=== PATIENT | female | born 1940 | race Caucasian/White ===

== ENCOUNTER 2022-11-14 01:09 | Inpatient (IN) ==
[~2022-11-14 01:09] MED LIST: Patient's ALLERGY Info needs ENTERED SCH
[2022-11-14] MEDS ORDERED: fentaNYL citrate PF 100 MCG/2 ML VIAL IV STA ×2 (01:29→02:55)
--- NOTE | 2022-11-14 01:41 | Emergency Department Note ---
History of Present Illness General Chief complaint: Hip Pain Stated complaint: fall Time Seen by Provider: 11/14/22 01:20 History of Present Illness Maximum Pain Intensity: 8 82-year-old female presents via EMS reportedly had a slip and fall as her sock caught a metal runner man the floor and she fell landing on her left hip. Patient did not hit her head did not complain of any neck pain. There is no loss of consciousness. Patient denies being on blood thinners. Patient complains of left hip pain was having some difficulty ambulating after the event. Patient states the pain is moderate and increases with movement of the leg decreases with rest. There are no other mitigating or alleviating factors Home Medications Medication Instructions Recorded Confirmed Type atenolol 50 mg tablet 50 mg PO QPM 11/14/22 11/14/22 History hydrochlorothiazide 25 mg tablet 25 mg PO DAILY 11/14/22 11/14/22 History levothyroxine 112 mcg tablet 112 mcg PO DAILYBB 11/14/22 11/14/22 History ramipril 10 mg capsule 10 mg PO DAILY 11/14/22 11/14/22 History Past Med/Surg History Social History Smoking Status: Never smoker Feels Safe at Home: Yes Immunizations: Past medical history reviewed with the patient at bedside she states that she has a history of sciatica Review of Systems A total of 10 systems reviewed and were otherwise negative Musculoskeletal: + joint pain Physical Exam Vital Signs Vital Signs - 24 hr 11/14/22 01:18 11/14/22 01:18 11/14/22 02:37 Temperature 36.7 C Temperature Source Oral Pulse Rate 71 Pulse Rate [Finger] 70 Respiratory Rate 18 16 Respiratory Effort / Characteristics Non-Labored Respiratory Depth Normal Normal Blood Pressure 166/106 H Blood Pressure [Right Arm] 148/100 H Blood Pressure Mean 126 Blood Pressure Mean [Right Arm] 116 Pulse Oximetry 91 97 Oxygen Delivery Method Room Air Room Air Nasal Cannula Oxygen Flow Rate 2 Sepsis Recent Fever Within 48 Hours No Sepsis New/Unexplained Change in Mental Status No Sepsis Action Taken by Nursing No Action Required 11/14/22 03:00 11/14/22 01:36 Temperature Temperature Source Pulse Rate 62 Pulse Rate [Finger] 53 L Respiratory Rate 15 Respiratory Effort / Characteristics Respiratory Depth Blood Pressure Blood Pressure [Right Arm] 137/95 Blood Pressure Mean Blood Pressure Mean [Right Arm] 109 Pulse Oximetry 95 Oxygen Delivery Method Nasal Cannula Oxygen Flow Rate Sepsis Recent Fever Within 48 Hours Sepsis New/Unexplained Change in Mental Status Sepsis Action Taken by Nursing GENERAL: Patient is awake alert in no acute distress patient is resting comfortably and showing no signs of anxiety EYES: The conjunctivae are clear. The pupils are round and reactive. EARS, NOSE, MOUTH AND THROAT: The nose is without any evidence of any deformity. Mucous membranes are moist. Tongue is midline. NECK: The neck is nontender and supple. RESPIRATORY: Normal respiratory effort is noted there is no evidence of wheezing rhonchi or rales CARDIOVASCULAR: Regular rate and rhythm noted there no murmurs rubs or gallops normal S1 normal S2. GASTROINTESTINAL: The abdomen is soft. Abdomen is nontender. PELVIS: The Pelvis is stable. Patient has abrasions to the lateral aspect of the left hip and tenderness with the left lower extremity being shortened and rotated the patient is neurovascularly intact distally BACK: No midline tenderness or or step-off noted range of motion in flexion extension as well as rotation no signs of muscle spasm noted MUSCULOSKELETAL/EXTREMITIES: Left lower extremity is shortened and rotated with hip tenderness on palpation laterally SKIN: There is no obvious evidence of any rash. There are no petechiae, pallor or cyanosis noted. NEUROLOGIC: Patient is awake alert and oriented x3 strength is symmetric; GCS of 15 Course Reevaluation(s) Reevaluation #1: Patient was started on IV fentanyl, the case was discussed with the hospitalist for admission Time: 02:51 Consultations Consultation #1: Case was discussed with the [facility] hospitalist for admission Time: 02:51 Administered Medications Discontinued Medications Fentanyl Citrate (Fentanyl Citrate Pf 100 Mcg/2 Ml Vial) 50 mcg IV NOW STA Stop: 11/14/22 01:30 Last Admin: 11/14/22 01:34 Dose: 50 mcg Documented By: VIJAY Fentanyl Citrate (Fentanyl Citrate Pf 100 Mcg/2 Ml Vial) 50 mcg IV NOW STA Stop: 11/14/22 02:56 Last Admin: 11/14/22 03:01 Dose: 50 mcg Documented By: VIJAY Ondansetron HCl (Ondansetron Inj 2 Mg/Ml 2 Ml Vial) 4 mg IV NOW STA Stop: 11/14/22 03:46 Last Admin: 11/14/22 03:55 Dose: 4 mg Documented By: VIJAY Ondansetron HCl (Ondansetron Inj 2 Mg/Ml 2 Ml Vial) Confirm Administered Dose 4 mg .ROUTE .STK-MED ONE Stop: 11/14/22 03:52 Last Admin: 11/14/22 03:56 Dose: Not Given Documented By: VIJAY Medical Decision Making Medical Records Attestation: I reviewed the patient's medical records. Home Medications Current Medication List: was personally reviewed by me Laboratory Data Attestation: I reviewed the patient's lab results. Leukocytosis 11/14/22 01:30 11/14/22 01:30 Lab Results 11/14/22 11/14/22 11/14/22 Range/Units 01:30 01:30 01:30 WBC 15.42 H (4.8-10.8) K/ul RBC 4.90 (4.20-5.40) M/uL Hgb 14.5 (12.0-16.0) g/dl Hct 43.3 (37.0-47.0) % MCV 88.4 (80.0-100.0) fL MCH 29.6 (25.0-34.0) pg MCHC 33.5 (32.0-36.0) g/dL RDW Std Deviation 45.3 (36.4-46.3) fL RDW Coeff of Adam 14.1 (11.5-14.5) % Plt Count 204 (130-400) K/uL MPV 9.7 (9.4-12.4) fL Immature Gran % (Auto) 0.8 % Neut % (Auto) 87.7 % Lymph % (Auto) 4.3 % Glenn % (Auto) 6.5 % Eos % (Auto) 0.4 % Baso % (Auto) 0.3 % Neut # (Auto) 13.51 H (1.40-6.50) K/uL Lymph # (Auto) 0.67 L (1.2-3.4) K/uL Glenn # (Auto) 1.00 H (0.11-0.59) K/uL Eos # (Auto) 0.06 (0-0.50) K/uL Baso # (Auto) 0.05 (0-0.2) K/uL Immature Gran # (Auto) 0.13 (0.01-0.20) K/uL PT 11.5 (9.0-12.0) Seconds INR 1.1 (0.9-1.1) APTT 27.6 (21.0-31.0) Seconds PTT Ratio 1.0 Sodium 138 (136-145) mmol/L Potassium 4.3 (3.5-5.1) mmol/L Chloride 107 (98-107) mmol/L Carbon Dioxide 21 (21-32) mmol/L Anion Gap 10 (3-11) BUN 31 H (6-23) mg/dl Creatinine 1.57 H (0.6-1.2) mg/dl Est Cr Clr Drug Dosing 24.4 ml/min Est GFR ( Amer) 35.0 ml/min Est GFR (Non-Af Amer) 30.2 ml/min BUN/Creatinine Ratio 19.7 (10-20) Glucose 131 H (70-99(Fasting)) mg/dl Calcium 9.7 (8.6-10.3) mg/dl Total Bilirubin 1.2 H (0.2-1.0) mg/dl AST 28 (13-39) U/L ALT 17 (7-52) U/L Alkaline Phosphatase 108 H (34-104) U/L Total Protein 6.9 (6.0-8.3) gm/dl Albumin 4.0 (3.4-5.0) gm/dl Globulin 2.9 (2.5-4.0) gm/dl Albumin/Globulin Ratio 1.4 (0.9-2) Urine Color Urine Appearance (Clear) Urine pH (4.5-7.5) Ur Specific Lincoln (1.000-1.030) Urine Protein (Negative) Urine Glucose (UA) (Negative) Urine Ketones (Negative) Urine Blood (Negative) Urine Nitrite (Negative) Urine Bilirubin (Negative) Urine Urobilinogen (Negative) Ur Leukocyte Esterase (Negative) Urine WBC (Auto) (0-5) /hpf Urine RBC (Auto) (0-4) /hpf U Hyaline Cast (Auto) (0-5) /lpf U Epithel Cells (Auto) (0-5) /lpf Urine Bacteria (Auto) (Negative) SARS-CoV-2, RNA, NAAT (NEGATIVE) 11/14/22 11/14/22 Range/Units 02:35 02:52 WBC (4.8-10.8) K/ul RBC (4.20-5.40) M/uL Hgb (12.0-16.0) g/dl Hct (37.0-47.0) % MCV (80.0-100.0) fL MCH (25.0-34.0) pg MCHC (32.0-36.0) g/dL RDW Std Deviation (36.4-46.3) fL RDW Coeff of Adam (11.5-14.5) % Plt Count (130-400) K/uL MPV (9.4-12.4) fL Immature Gran % (Auto) % Neut % (Auto) % Lymph % (Auto) % Glenn % (Auto) % Eos % (Auto) % Baso % (Auto) % Neut # (Auto) (1.40-6.50) K/uL Lymph # (Auto) (1.2-3.4) K/uL Glenn # (Auto) (0.11-0.59) K/uL Eos # (Auto) (0-0.50) K/uL Baso # (Auto) (0-0.2) K/uL Immature Gran # (Auto) (0.01-0.20) K/uL PT (9.0-12.0) Seconds INR (0.9-1.1) APTT (21.0-31.0) Seconds PTT Ratio Sodium (136-145) mmol/L Potassium (3.5-5.1) mmol/L Chloride (98-107) mmol/L Carbon Dioxide (21-32) mmol/L Anion Gap (3-11) BUN (6-23) mg/dl Creatinine (0.6-1.2) mg/dl Est Cr Clr Drug Dosing ml/min Est GFR ( Amer) ml/min Est GFR (Non-Af Amer) ml/min BUN/Creatinine Ratio (10-20) Glucose (70-99(Fasting)) mg/dl Calcium (8.6-10.3) mg/dl Total Bilirubin (0.2-1.0) mg/dl AST (13-39) U/L ALT (7-52) U/L Alkaline Phosphatase (34-104) U/L Total Protein (6.0-8.3) gm/dl Albumin (3.4-5.0) gm/dl Globulin (2.5-4.0) gm/dl Albumin/Globulin Ratio (0.9-2) Urine Color Dark Yellow Urine Appearance Turbid A (Clear) Urine pH 5.0 (4.5-7.5) Ur Specific Lincoln 1.016 (1.000-1.030) Urine Protein 2+ H (Negative) Urine Glucose (UA) Negative (Negative) Urine Ketones Negative (Negative) Urine Blood 3+ H (Negative) Urine Nitrite Negative (Negative) Urine Bilirubin Negative (Negative) Urine Urobilinogen Negative (Negative) Ur Leukocyte Esterase 3+ H (Negative) Urine WBC (Auto) >30 H (0-5) /hpf Urine RBC (Auto) 10-30 H (0-4) /hpf U Hyaline Cast (Auto) 1-5 (0-5) /lpf U Epithel Cells (Auto) 10-20 H (0-5) /lpf Urine Bacteria (Auto) 1+ H (Negative) SARS-CoV-2, RNA, NAAT NEGATIVE (NEGATIVE) Imaging Data Attestation: I personally reviewed and interpreted this imaging study as follows: My Impression: Chest x-ray negative for infiltrate, hip x-ray interpreted by me as left sided subcapital femoral neck fracture ECG Data Attestation: I personally reviewed and interpreted this ECG as follows: Additional Comments: EKG interpreted by me normal sinus rhythm rate of [address]-T change right axis deviation no obvious ST segment elevation or depression Telemetry was ordered by me interpreted as sinus rhythm rate of 69 MDM Narrative Medical decision making differential diagnosis includes sprain strain contusion fracture or dislocation of the left hip. Plan is to check labs, x-ray, give IV pain medicine History was provided to me by EMS and the patient's family at bedside Patient was found to have a fracture of the left subcapital femoral neck and will be admitted Impression & Plan Closed subcapital fracture of left femur Discharge Plan Visit Data Chief Complaint: Hip Pain Stated Complaint: fall ED Provider: Jorge Head Discharge Problem: Closed subcapital fracture of left femur Patient Disposition: Admitted As Inpatient Forms Stand Alone Forms: My [facility] Prescriptions Prescriptions: No Action hydrochlorothiazide 25 mg tablet 25 mg PO DAILY atenolol 50 mg tablet 50 mg PO QPM ramipril 10 mg capsule 10 mg PO DAILY levothyroxine 112 mcg tablet 112 mcg PO DAILYBB Referrals Referrals: Timo Greenwood [Non-Staff] -
[2022-11-14 01:56] LABS: Basophils # (auto) 0.05 K/uL (0-0.2); Basophils % (auto) 0.3 %; Eosinophils # (auto) 0.06 K/uL (0-0.50); Eosinophils % (auto) 0.4 %; Hematocrit (blood only) 43.3 % (37.0-47.0); Hemoglobin 14.5 g/dl (12.0-16.0); Immature Granulocytes # (auto) 0.13 K/uL (0.01-0.20); Immature Granulocytes % (auto) 0.8 %; Lymphocytes # (auto) 0.67 K/uL (1.2-3.4); Lymphocytes % (auto) 4.3 %; Mean Corpuscular Hemoglobin 29.6 pg (25.0-34.0); Mean Corpuscular Hgb Conc 33.5 g/dL (32.0-36.0); Mean Corpuscular Volume 88.4 fL (80.0-100.0); Mean Platelet Volume 9.7 fL (9.4-12.4); Monocytes % (auto) 6.5 %; Neutrophils # (auto) 13.51 K/uL (1.40-6.50); Neutrophils % (auto) 87.7 %; Platelet Count 204 K/uL (130-400); RDW Coefficient of Variation 14.1 % (11.5-14.5); RDW Standard Deviation 45.3 fL (36.4-46.3); White Blood Count 15.42 K/ul (4.8-10.8)
[2022-11-14 02:15] LABS: Albumin Globulin Ratio 1.4 (0.9-2); BUN Creatinine Ratio 19.7 (10-20); Bilirubin,Total 1.2 mg/dl (0.2-1.0); Calcium 9.7 mg/dl (8.6-10.3); Creatinine Clr Calc Pharmacy 24.4 ml/min; Est GFR (Non-African American) 30.2 ml/min; Globulin 2.9 gm/dl (2.5-4.0); Potassium 4.3 mmol/L (3.5-5.1); Total Protein 6.9 gm/dl (6.0-8.3)
[2022-11-14 02:24] LABS: INR 1.1 (0.9-1.1); Partial Thromboplastin Time 27.6 Seconds (21.0-31.0); Prothrombin Time 11.5 Seconds (9.0-12.0)
[2022-11-14 02:51] LABS: Appearance Urine Turbid (Clear); Bacteria Urine Automated 1+ (Negative); Bilirubin Urine Negative (Negative); Blood Urine 3+ (Negative); Color Urine Dark Yellow; Glucose Urine UA Negative (Negative); Ketones Urine Negative (Negative); Leukocyte Esterase Urine 3+ (Negative); Nitrite Urine Negative (Negative); Protein Urine 2+ (Negative); Specific Gravity Urine 1.016 (1.000-1.030); Urobilinogen Urine Negative (Negative); WBC Urine Automated >30 /hpf (0-5)
[2022-11-14] MEDS ORDERED: ONDANSETRON INJ 2 MG/ML 2 ML VIAL IV STA (03:45)
[2022-11-14] MEDS ORDERED: ONDANSETRON INJ 2 MG/ML 2 ML VIAL ONE (03:51)
[2022-11-14] MEDS: cefTRIAXone SODIUM 2,000 MG in DEXTROSE 5% 50 ML IV SCH (05:15)
[2022-11-14] MEDS ORDERED: POLYETHYLENE (MIRALAX) 17 GM PACK PO PRN (06:56)
[2022-11-14] MEDS ORDERED: ONDANSETRON INJ 2 MG/ML 2 ML VIAL IV PRN (06:56)
[2022-11-14] MEDS ORDERED: SODIUM CHLORIDE 0.9% 1000ML 1,000 ML IV SCH (06:56)
[2022-11-14] MEDS ORDERED: MoRPHine SULFATE 4 MG/ML 1 ML CARP\\VIAL IV PRN ×2 (06:56→13:55)
[2022-11-14 07:42] LABS: Hematocrit (blood only) 40.8 % (37.0-47.0); Hemoglobin 13.6 g/dl (12.0-16.0); Mean Corpuscular Hemoglobin 29.5 pg (25.0-34.0); Mean Corpuscular Hgb Conc 33.3 g/dL (32.0-36.0); Mean Corpuscular Volume 88.5 fL (80.0-100.0); Mean Platelet Volume 9.5 fL (9.4-12.4); Platelet Count 204 K/uL (130-400); RDW Coefficient of Variation 14.2 % (11.5-14.5); RDW Standard Deviation 45.4 fL (36.4-46.3); Red Blood Count 4.61 M/uL (4.20-5.40); White Blood Count 13.31 K/ul (4.8-10.8)
[2022-11-14] MEDS: LEVOTHYROXINE SODIUM 112 MCG TABLET PO SCH (07:51)
[2022-11-14 07:58] LABS: BUN Creatinine Ratio 19.2 (10-20); Calcium 9.1 mg/dl (8.6-10.3); Creatinine Clr Calc Pharmacy 25.4 ml/min; Est GFR (African American) 36.7 ml/min; Est GFR (Non-African American) 31.6 ml/min; Magnesium 1.7 mg/dl (1.7-2.4); Potassium 4.3 mmol/L (3.5-5.1)
--- NOTE | 2022-11-14 07:59 | XRay Report ---
XR hip LT min 2V CLINICAL HISTORY: fall / inj TECHNIQUE: 2 views of the right hip and single frontal view of the pelvis were obtained. Comparison: None available at the time of this dictation. FINDINGS: There is a subcapital/transcervical fracture of the left femoral neck. There is lateral displacement and mild overriding of fragments. Joint spaces are well-preserved. Soft tissue swelling is seen. IMPRESSION: Moderately displaced left femoral neck fracture is seen with associated soft tissue swelling. ACT 112: Negative or not required by law. Electronically signed by: Zhen Sotelo M.D. 11/14/2022 7:57 AM
[2022-11-14 08:23] LABS: Basophils # (auto) 0.04 K/uL (0-0.2); Basophils % (auto) 0.3 %; Eosinophils # (auto) 0.02 K/uL (0-0.50); Eosinophils % (auto) 0.2 %; Immature Granulocytes # (auto) 0.12 K/uL (0.01-0.20); Immature Granulocytes % (auto) 0.9 %; Lymphocytes # (auto) 0.47 K/uL (1.2-3.4); Lymphocytes % (auto) 3.5 %; Monocytes # (auto) 0.66 K/uL (0.11-0.59); Neutrophils % (auto) 90.1 %
--- NOTE | 2022-11-14 08:42 | Communication Note ---
Date of Service: November 14, 2022 Patient has no cardiac history, No pulmonary history. Says could not ambulate for long distance because of hip problems and sciatica. Ambulates with cane at home.labs ok, ekg and cxr ok. Hemodynamically stable. Should be at acceptable risk to proceed with surgery.
[2022-11-14] MEDS ORDERED: hydrALAZINE HCL 20 MG/ML VIAL IV PRN (08:45)
[2022-11-14] MEDS ORDERED: ENALAPRIL MALEATE 10 MG TAB PO SCH (09:00)
--- NOTE | 2022-11-14 09:04 | XRay Report ---
XR chest 1V portable HISTORY: 82 years-old Female protocol preoperative exam. No acute chest complaints. Acute fracture o f the left hip COMPARISON: None TECHNIQUE: AP view of the chest FINDINGS: Cardiac silhouette is enlarged. Atherosclerosis of aorta. Large hiatal hernia. No pneumothorax, large pleural effusion or overt pulmonary edema. Hyperinflation with blunting of the costophrenic angles. Degenerative changes of the shoulders and spine with loose bodies of the glenohumeral joint. IMPRESSION: 1. Cardiomegaly without acute process. 2. Hiatal hernia. ACT 112: Negative or not required by law. The above report was generated using voice recognition software. It may contain grammatical, syntax o r spelling errors. Electronically signed by: José Miguel Mcgovern M.D. 11/14/2022 8:38 AM
--- NOTE | 2022-11-14 09:18 | History and Physical Report ---
DATE OF ADMISSION: 11/14/2022. CHIEF COMPLAINT: Status post fall and left hip fracture. HISTORY OF PRESENT ILLNESS: This is an 82-year-old female with past medical history significant for hypertension, hypothyroidism, comes because of mechanical fall at home. She tripped on the carpet and fell on the left side. She was able to get up and sit in the chair, but had a lot of pain, was brought in here and found to have a left hip fracture, hemodynamically stable. Denies any chest pain, no shortness of breath, no cough, no fever, no headache, no blurred visions, no earache, no runny nose, no sore throat, no nausea, no abdominal pain. Normal bowel and bladder movements. She says she ambulates with a cane. She lives with her sister. She says because of pain in her hips and sciatica, she could not ambulate for long distances. Denies any heart disease, lung disease or kidney disease. ALLERGIES: No known drug allergies. PAST MEDICAL HISTORY: As mentioned above. PAST SURGICAL HISTORY: Hysterectomy and cholecystectomy. MEDICATIONS: The patient is on atenolol 50 mg p.o. daily, hydrochlorothiazide 25 mg p.o. daily, levothyroxine 112 mcg p.o. daily, ramipril 10 mg p.o. daily. FAMILY HISTORY: Noncontributory. SOCIAL HISTORY: Denies smoking, denies alcohol use. Living with her sister. REVIEW OF SYSTEMS: As per HPI. Rest of review of systems is negative. PHYSICAL EXAMINATION: GENERAL: The patient is of moderate build, not in acute distress. VITAL SIGNS: Temperature 36.7, pulse 53, respiratory rate 16, blood pressure 128/92, oxygen 98% on room air. HEENT: Pupils equal, round and reactive to light. Oral mucosa dry. NECK: No JVD or neck masses. CARDIOVASCULAR: S1 and S2 heard. Regular rate and rhythm. No murmur, no gallop. RESPIRATORY SYSTEM: Normal AP diameter. No accessory muscle use. No wheezing or crackles. ABDOMEN: Soft, bowel sounds present, nontender, no distention. CENTRAL NERVOUS SYSTEM: Alert and oriented. Speech is clear. No facial droop. Obeys simple commands. Moves extremities. EXTREMITIES: Left lower extremity shortened and externally rotated. No erythema seen. LABORATORY DATA: WBC 13.3, hemoglobin 13.6, hematocrit 40.8, platelets 204. PT 11.5, INR 1.1, APTT 27.6. Sodium 138, potassium 4.3, chloride 107, bicarb 25, BUN 29, creatinine 1.5, serum glucose 120, calcium 9.1, magnesium 1.7, total bilirubin 1.2, AST 28, ALT 17, alkaline phosphatase 108. Urinalysis, +3 leukocyte esterase, +1 bacteria. SARS-CoV-2 rapid test negative. IMAGING: Chest x-ray: No acute findings. Hip x-ray: Moderately displaced left femoral fracture is seen with associated soft tissue swelling. ELECTROCARDIOGRAM: Normal sinus rhythm, rate of 69, possible left atrial enlargement, nonspecific ST abnormalities. ASSESSMENT AND PLAN: This is an 82-year-old female who presents with mechanical fall and left hip fracture. 1. Status post mechanical fall, left hip fracture. The patient's laboratories are okay. Chest x-ray and EKG are okay. No cardiac history. Not able to ambulate long distance because of sciatica and hip pain, ambulates with a cane. The patient is currently hemodynamically stable. The patient should be at acceptable risk to proceed with surgery. We will keep her n.p.o., IV fluids, IV pain medications p.r.n., IV antiemetics p.r.n. Consult orthopedics. Monitor in the medical floor. Gentle fluids. 2. History of hypertension. Continue atenolol. Hold hydrochlorothiazide and ramipril until the procedure is done. We will place her on IV hydralazine p.r.n. Monitor the blood pressure. 3. Hypothyroidism. Continue Synthroid. 4. Acute kidney injury versus chronic kidney disease. Presents with a creatinine of 1.5. Avoid nephrotoxic agents. We will follow the repeat laboratories. 5. Urinary tract infection. Starting on Rocephin. We will follow the cultures. 6. Deep venous thrombosis prophylaxis. Could not place sequential compression devices because of the hip fracture. Could not place her on anticoagulation because of plan for surgery. Further anticoagulation as per orthopedics. Job ID: [id number] [facility]
--- NOTE | 2022-11-14 10:53 | Electrocardiogram Report ---
Test Reason : Blood Pressure : / mmHG Vent. Rate : 069 BPM Atrial Rate : 069 BPM P-R Int : 180 ms QRS Dur : 080 ms QT Int : 392 ms P-R-T Axes : 069 092 075 degrees QTc Int : 420 ms Normal sinus rhythm Possible Left atrial enlargement Rightward axis Nonspecific ST abnormality Abnormal ECG No previous ECGs available Confirmed by Polo Mayers ([id number]) on 11/14/2022 10:52:34 AM Referred By: REFERRED SELF Confirmed By:Paul Mayers
[2022-11-14] MEDS: MoRPHine SULFATE 4 MG/ML 1 ML CARP\\VIAL IV PRN ×2 (13:18→14:10)
[2022-11-14] MEDS ORDERED: oxyCODONE HCL IR 5 MG TAB (IMMEDIATE RELEASE) PO PRN (13:54)
--- NOTE | 2022-11-14 15:12 | Orthopedic Consultation ---
Date of Consultation November 14, 2022 Assessment & Plan (1) Closed subcapital fracture of left femur: Displaced left hip fracture. X-rays reviewed. Patient will require bipolar hemiarthroplasty. I have spoken to Dr. Magana who is agreeable to do the surgery tomorrow. Patient may have a regular diet at this point in time and n.p.o. after midnight. I have discussed with the patient and with her daughter the plans for surgery. All questions answered to the best my ability. We will plan for bipolar hemiarthroplasty tomorrow afternoon with Dr. Magana. History of Present Illness Reason for Consultation: Left hip fracture Attending Physician: Yang Montano MD History of Present Illness This is an 82-year-old female with past medical history significant for hypertension, hypothyroidism, comes because of mechanical fall at home. Patient states that she was ambulating from one room to another last evening. She was wearing socks with little rubber beads on the bottom of them for traction. She states that she got to the area where the carpet started, one of her socks caught onto a screw at the door jam and as she continued ambulating the sock caught and she lost her balance. She fell to the floor. She had immediate pain in her left hip and groin. She denies hitting her head she denies loss of consciousness. She had no shortness of breath, chest pain, lightheadedness prior to or after the fall. She states she was actually able to get herself up and ambulate a little bit with pain during the evening however after sitting down in one of her chairs for a period of time she tried to get up and move and had more pain than before. She was unable to ambulate and was brought to the emergency room. She was seen by the staff. X-rays were taken. It was found that she had a displaced left femoral neck fracture. She was admitted by [employer] [facility] and we have been asked to see her. She is cu rrently sitting up in bed awake and alert. She is comfortable. No new complaints. Allergies Allergy/AdvReac Type Severity Reaction Status Date / Time No Known Allergies Allergy Unverified 11/14/22 05:02 Home Medications Medication Instructions Recorded Confirmed Type atenolol 50 mg tablet 50 mg PO QPM 11/14/22 11/14/22 History hydrochlorothiazide 25 mg tablet 25 mg PO DAILY 11/14/22 11/14/22 History levothyroxine 112 mcg tablet 112 mcg PO DAILYBB 11/14/22 11/14/22 History ramipril 10 mg capsule 10 mg PO DAILY 11/14/22 11/14/22 History Patient History Social History Smoking Status: Never smoker Second Hand Exposure: No; Do You Dip or Chew Tobacco: No; Hx Alcohol Use: No Hx Substance Use: No Preferred Language: Russian Communication Ability: Effective Tectonophysicist Required: No Beliefs That Will Affect Care: None Current Living Situation: Family Current Living Situation Comment: Lives with daughter, another daughter lives next door Other Information That Helps Us Care for You: No Feels Safe at Home: Yes Safety Concerns: Feels Safe At This Time Assistive Devices: Cane, Denture - Upper and Glasses Physical Exam Physical Exam: Patient is an 82-year-old white female who appears younger than her stated age. She is alert and oriented x3. No acute distress. Pleasant and cooperative. On examination of her left lower extremity, it is shortened and externally rotated compared to the right. Left hip range of motion is deferred secondary to hip fracture. She has no pain on palpation over the lateral hip at this time. Palpation of the left knee is nontender at this time. Range of motion is deferred secondary to left hip fracture. She has good range of motion of her left ankle and toes. She has some mild edema noted of both feet. Right lower extremity is unaffected and she has good range of motion of her right hip, knee, and ankle. Upper extremities are unaffected. She is nontender at the shoulders, elbows, and wrists. Range of motion is within normal limits. She denies any cervical, thoracic, low back pain at this time. There is no gross motor or sensory loss seen at this time. Results & Data Vital Signs (Past 12 Hours) Vital Signs Pulse Pulse Resp BP Pulse Ox O2 Del Method O2 Flow Rate 11/14/22 09:00 66 18 116/79 98 Nasal Cannula 2 11/14/22 07:00 52 L 16 128/92 98 Room Air 11/14/22 07:10 53 L 11/14/22 05:08 53 L 11/14/22 05:00 53 L 14 131/77 97 Room Air 11/14/22 03:00 53 L 15 137/95 95 Nasal Cannula Laboratory Results Laboratory Results WBC 13.31 K/ul (4.8-10.8) H 11/14/22 07:08 RBC 4.61 M/uL (4.20-5.40) 11/14/22 07:08 Hgb 13.6 g/dl (12.0-16.0) 11/14/22 07:08 Hct 40.8 % (37.0-47.0) 11/14/22 07:08 MCV 88.5 fL (80.0-100.0) 11/14/22 07:08 MCH 29.5 pg (25.0-34.0) 11/14/22 07:08 MCHC 33.3 g/dL (32.0-36.0) 11/14/22 07:08 RDW Std Deviation 45.4 fL (36.4-46.3) 11/14/22 07:08 RDW Coeff of Adam 14.2 % (11.5-14.5) 11/14/22 07:08 Plt Count 204 K/uL (130-400) 11/14/22 07:08 MPV 9.5 fL (9.4-12.4) 11/14/22 07:08 Immature Gran % (Auto) 0.9 % 11/14/22 07:08 Neut % (Auto) 90.1 % 11/14/22 07:08 Lymph % (Auto) 3.5 % 11/14/22 07:08 Stephens % (Auto) 5.0 % 11/14/22 07:08 Eos % (Auto) 0.2 % 11/14/22 07:08 Baso % (Auto) 0.3 % 11/14/22 07:08 Neut # (Auto) 12.00 K/uL (1.40-6.50) H 11/14/22 07:08 Lymph # (Auto) 0.47 K/uL (1.2-3.4) L 11/14/22 07:08 Stephens # (Auto) 0.66 K/uL (0.11-0.59) H 11/14/22 07:08 Eos # (Auto) 0.02 K/uL (0-0.50) 11/14/22 07:08 Baso # (Auto) 0.04 K/uL (0-0.2) 11/14/22 07:08 Immature Gran # (Auto) 0.12 K/uL (0.01-0.20) 11/14/22 07:08 PT 11.5 Seconds (9.0-12.0) 11/14/22 01:30 INR 1.1 (0.9-1.1) 11/14/22 01:30 APTT 27.6 Seconds (21.0-31.0) 11/14/22 01:30 PTT Ratio 1.0 11/14/22 01:30 Sodium 138 mmol/L (136-145) 11/14/22 07:08 Potassium 4.3 mmol/L (3.5-5.1) 11/14/22 07:08 Chloride 107 mmol/L (98-107) 11/14/22 07:08 Carbon Dioxide 25 mmol/L (21-32) 11/14/22 07:08 Anion Gap 6 (3-11) 11/14/22 07:08 BUN 29 mg/dl (6-23) H 11/14/22 07:08 Creatinine 1.51 mg/dl (0.6-1.2) H 11/14/22 07:08 Est Cr Clr Drug Dosing 25.4 ml/min 11/14/22 07:08 Est GFR ( Amer) 36.7 ml/min 11/14/22 07:08 Est GFR (Non-Af Amer) 31.6 ml/min 11/14/22 07:08 BUN/Creatinine Ratio 19.2 (10-20) 11/14/22 07:08 Glucose 120 mg/dl (70-99(Fasting)) H 11/14/22 07:08 Calcium 9.1 mg/dl (8.6-10.3) 11/14/22 07:08 Magnesium 1.7 mg/dl (1.7-2.4) 11/14/22 07:08 Total Bilirubin 1.2 mg/dl (0.2-1.0) H 11/14/22 01:30 AST 28 U/L (13-39) 11/14/22 01:30 ALT 17 U/L (7-52) 11/14/22 01:30 Alkaline Phosphatase 108 U/L (34-104) H 11/14/22 01:30 Total Protein 6.9 gm/dl (6.0-8.3) 11/14/22 01:30 Albumin 4.0 gm/dl (3.4-5.0) 11/14/22 01:30 Globulin 2.9 gm/dl (2.5-4.0) 11/14/22 01:30 Albumin/Globulin Ratio 1.4 (0.9-2) 11/14/22 01:30 Urine Color Dark Yellow 11/14/22 02:35 Urine Appearance Turbid (Clear) A 11/14/22 02:35 Urine pH 5.0 (4.5-7.5) 11/14/22 02:35 Ur Specific [place] 1.016 (1.000-1.030) 11/14/22 02:35 Urine Protein 2+ (Negative) H 11/14/22 02:35 Urine Glucose (UA) Negative (Negative) 11/14/22 02:35 Urine Ketones Negative (Negative) 11/14/22 02:35 Urine Blood 3+ (Negative) H 11/14/22 02:35 Urine Nitrite Negative (Negative) 11/14/22 02:35 Urine Bilirubin Negative (Negative) 11/14/22 02:35 Urine Urobilinogen Negative (Negative) 11/14/22 02:35 Ur Leukocyte Esterase 3+ (Negative) H 11/14/22 02:35 Urine WBC (Auto) >30 /hpf (0-5) H 11/14/22 02:35 Urine RBC (Auto) 10-30 /hpf (0-4) H 11/14/22 02:35 U Hyaline Cast (Auto) 1-5 /lpf (0-5) 11/14/22 02:35 U Epithel Cells (Auto) 10-20 /lpf (0-5) H 11/14/22 02:35 Urine Bacteria (Auto) 1+ (Negative) H 11/14/22 02:35 SARS-CoV-2, RNA, NAAT NEGATIVE (NEGATIVE) 11/14/22 02:52 Impressions Hip X-Ray 11/14/22 01:22 XR hip LT min 2V CLINICAL HISTORY: fall / inj TECHNIQUE: 2 views of the right hip and single frontal view of the pelvis were obtained. Comparison: None available at the time of this dictation. FINDINGS: There is a subcapital/transcervical fracture of the left femoral neck. There is lateral displacement and mild overriding of fragments. Joint spaces are well- preserved. Soft tissue swelling is seen. IMPRESSION: Moderately displaced left femoral neck fracture is seen with associated soft tissue swelling. ACT 112: Negative or not required by law. Electronically signed by: Zhen Sotelo M.D. 11/14/2022 7:57 AM Chest X-Ray 11/14/22 01:49 XR chest 1V portable HISTORY: 82 years-old Female protocol preoperative exam. No acute chest complaints. Acute fracture of the left hip COMPARISON: None TECHNIQUE: AP view of the chest FINDINGS: Cardiac silhouette is enlarged. Atherosclerosis of aorta. Large hiatal hernia. No pneumothorax, large pleural effusion or overt pulmonary edema. Hyperinflation with blunting of the costophrenic angles. Degenerative changes of the shoulders and spine with loose bodies of the glenohumeral joint. IMPRESSION: 1. Cardiomegaly without acute process. 2. Hiatal hernia. ACT 112: Negative or not required by law. The above report was generated using voice recognition software. It may contain grammatical, syntax or spelling errors. Electronically signed by: José Miguel Mcgovern M.D. 11/14/2022 8:38 AM
--- NOTE | 2022-11-14 15:27 | Communication Note ---
Date of Service: November 14, 2022 Patient seen and examined at bedside. She is comfortably lying in the bed; not in distress. She reports that pain is well controlled on current medication. Afebrile, vital stable. Saturating well on 2 L of oxygen Orthopedic evaluated the patient; plan for or tomorrow. Diet is started, n.p.o. from midnight.
[2022-11-14] MEDS ORDERED: ALPRAZolam 0.25 MG TABLET PO ONE (18:59)
[2022-11-14] MEDS: ATENOLOL 50 MG TABLET PO SCH (20:10)
[2022-11-15] MEDS: ACETAMINOPHEN 325 MG TAB PO PRN ×2 (03:42→23:56)
[2022-11-15] MEDS: cefTRIAXone SODIUM 2,000 MG in DEXTROSE 5% 50 ML IV SCH (05:19)
[2022-11-15] MEDS ORDERED: BUPIVACAINE 0.5 % 5 MG/1 ML PF 10ML VIAL ONE (06:35)
[2022-11-15] MEDS: LEVOTHYROXINE SODIUM 112 MCG TABLET PO SCH (06:48)
[2022-11-15 11:33] LABS: BUN Creatinine Ratio 18.9 (10-20); Creatinine Clr Calc Pharmacy 25.9 ml/min; Est GFR (African American) 37.6 ml/min; Est GFR (Non-African American) 32.4 ml/min; Potassium 4.3 mmol/L (3.5-5.1)
[2022-11-15] MEDS ORDERED: fentaNYL citrate PF 100 MCG/2 ML VIAL ONE (13:49)
[2022-11-15] MEDS ORDERED: ceFAZolin 2000MG 2,000 MG/15 ML SYR IV ONE (14:31)
--- NOTE | 2022-11-15 14:34 | History & Physical Bridge Note ---
Date of Service November 15, 2022 History & Physical Bridge Note I have examined the patient, reviewed the History & Physical and in the interval since the performance of the History & Physical I have noted the following changes of clinical significance: no changes noted
[2022-11-15] MEDS ORDERED: ROPIVACAINE 0.5% HCL/PF 150 MG, BUPIVACAINE 0.75% MPF 20 ML, EPINEPHrine 30MG/30ML (OR ... INSTIL STA (14:37)
[2022-11-15] MEDS ORDERED: MIDAZOLAM HCL 1 MG/ML 2ML VIAL ONE (14:48)
--- NOTE | 2022-11-15 14:48 | Hospitalist Progress Note ---
Date of Service November 15, 2022 Assessment & Plan (1) Closed subcapital fracture of left femur: (2) Hypertension: (3) Hypothyroid: (4) Kidney disease: Plan This is an 82-year-old female who presents with mechanical fall and left hip fracture. 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 Magana, EBL 300ml Pain control, incentive spirometry, PT/OT when appropriate Monitor H/H with AM labs HTN Continue atenolol with hold parameters. Holding hctz and ramipril for now - consider resuming tomorrow Hypothyroidism Continue Synthroid Acute kidney injury vs chronic kidney disease Presents with a creatinine of 1.5 --> 1.48. Avoid nephrotoxic agents. Follow BMP UTI Started on Rocephin, follow cultures DVT Ppx: SCDs pre-op, per ortho post-op Code status: FULL Dispo: Returned to med/surg post-op Patient seen in collaboration with Dr. Cobb. Please see addendum. I spent a total of 45 minutes coordinating, documenting, and providing care for this patient excluding time spent in the performance of separately billed services. Admission and Anticipated Discharge Date Admission Date: November 14, 2022 Supervising Physician Co-Signing Physician Notes delayed entry date of service noted above Attending Addendum: care coordinated with DIONE Radhika Darling please refer to her notes for full details, I agree with her notes patient seen and examined, records reviewed by myself as well diagnoses and plan of care as per DIONE Cobb MD Subjective Patient seen and examined in 378 bed 1 today. Has some discomfort of left hip and is awaiting OR today. Also noted some pain in left knee but states it is likely positional. No other issues. Did have nausea following administration of morphine last evening but pain is now controlled with Tylenol. Denies any fever, chills, lightheadedness, chest pain, shortness of breath, nausea, vomiting, abdominal pain, dysuria, diarrhea or constipation. Riley catheter in place. Review of Systems Review of Systems: At least ten systems reviewed and negative except as noted in the HPI. Physical Exam Physical Exam: Gen: WD/WN, NAD, lying in bed, A&Ox3 HEENT: Normocephalic, atraumatic, conjunctivae moist, sclerae anicteric, mucous membranes moist Lung: Clear to Auscultation bilaterally, no wheezes/rales/rhonchi Heart: Regular rate, regular rhythm, no murmurs, rubs, or gallops Abdomen: Soft, NT, ND +BS x 4 Extremities:L leg externally rotated, TTP on proximal thigh, no edema : Riley Skin: Warm, no rash Results & Data Results & Data Vital Signs (Past 12 Hours) Vital Signs Temp Pulse Pulse Resp BP BP Pulse Ox 11/15/22 13:55 36.7 C 66 20 105/71 95 11/15/22 13:45 37.0 C 70 16 117/73 94 11/15/22 07:54 36.6 C 65 18 117/76 96 O2 Del Method O2 Flow Rate 11/15/22 13:55 Oxymask 3 11/15/22 13:45 Oxymask 4 11/15/22 07:54 Oxymask 4 Laboratory Results BMP 11/15/22 10:47 Sodium 141 Potassium 4.3 Chloride 110 H Carbon Dioxide 26 BUN 28 H Creatinine 1.48 H Glucose 87 Calcium 9.0 Diagnostic Findings Hip X-Ray 11/14/22 01:22 XR hip LT min 2V CLINICAL HISTORY: fall / inj TECHNIQUE: 2 views of the right hip and single frontal view of the pelvis were obtained. Comparison: None available at the time of this dictation. FINDINGS: There is a subcapital/transcervical fracture of the left femoral neck. There is lateral displacement and mild overriding of fragments. Joint spaces are well-pr eserved. Soft tissue swelling is seen. IMPRESSION: Moderately displaced left femoral neck fracture is seen with associated soft tissue swelling. ACT 112: Negative or not required by law. Electronically signed by: Zhen Sotelo M.D. 11/14/2022 7:57 AM Chest X-Ray 11/14/22 01:49 XR chest 1V portable HISTORY: 82 years-old Female protocol preoperative exam. No acute chest complaints. Acute fracture of the left hip COMPARISON: None TECHNIQUE: AP view of the chest FINDINGS: Cardiac silhouette is enlarged. Atherosclerosis of aorta. Large hiatal hernia. No pneumothorax, large pleural effusion or overt pulmonary edema. Hyperinflation with blunting of the costophrenic angles. Degenerative changes of the shoulders and spine with loose bodies of the glenohumeral joint. IMPRESSION: 1. Cardiomegaly without acute process. 2. Hiatal hernia. ACT 112: Negative or not required by law. The above report was generated using voice recognition software. It may contain grammatical, syntax or spelling errors. Electronically signed by: José Miguel Mcgovern M.D. 11/14/2022 8:38 AM
--- NOTE | 2022-11-15 15:13 | Anesthesiology Consultation ---
Date of Service November 15, 2022 Assessment & Plan (1) Encounter for pre-operative examination: Chart Review Chart Review: Acceptable Risk for Surgery History Surgery Operation Date: 11/15/22 13:00 Proposed Procedures p Left Bipolar Hemiarthroplasty - Trevon Magana MD Height/Weight Height: 5 ft 5 in Weight: 65 kg Allergies Allergy/AdvReac Type Severity Reaction Status Date / Time No Known Allergies Allergy Unverified 11/14/22 05:02 Medications Home Medications Medication Instructions Recorded Confirmed Last Taken atenolol 50 mg tablet 50 mg PO QPM 11/14/22 11/14/22 Unknown hydrochlorothiazide 25 mg tablet 25 mg PO DAILY 11/14/22 11/14/22 Unknown levothyroxine 112 mcg tablet 112 mcg PO DAILYBB 11/14/22 11/14/22 Unknown ramipril 10 mg capsule 10 mg PO DAILY 11/14/22 11/14/22 Unknown Active Medications Generic Name Dose Route Start Last Admin Trade Name Freq PRN Reason Stop Dose Admin Acetaminophen 650 mg 11/14/22 06:56 11/15/22 03:42 Acetaminophen 325 Mg Tab PO 12/14/22 06:55 650 mg Q4H PRN Administration pain/fever Atenolol 50 mg 11/14/22 21:00 11/14/22 20:10 Atenolol 50 Mg Tablet PO 12/14/22 20:59 50 mg QPM NATHAN Administration Enalapril Maleate 40 mg 11/14/22 09:00 11/14/22 09:01 Enalapril Maleate 10 Mg Tab PO 12/14/22 08:59 40 mg DAILY NATHAN Administration Ceftriaxone Sodium 2,000 mg/ 70 mls @ 100 mls/hr 11/14/22 05:00 11/15/22 06:17 Dextrose IV 11/24/22 04:59 Infused Q24H NATHAN Infusion Protocol Levothyroxine Sodium 112 mcg 11/14/22 06:56 11/15/22 06:48 Levothyroxine Sodium 112 Mcg Tablet PO 12/14/22 06:55 112 mcg DAILYBB NATHAN Administration Morphine Sulfate 2 mg 11/14/22 13:55 11/14/22 18:03 Morphine Sulfate 4 Mg/Ml 1 Ml Carp\Vial IV 11/28/22 08:32 2 mg Q3H PRN Administration Pain Ondansetron HCl 4 mg 11/14/22 06:56 04/18/23 19:06 Ondansetron Inj 2 Mg/Ml 2 Ml Vial IV 12/14/22 06:55 4 mg Q6H PRN Administration Nausea Oxycodone HCl 5 mg 11/14/22 13:54 11/14/22 14:12 Oxycodone Hcl Ir 5 Mg Tab (Immediate Release) PO 11/28/22 13:53 5 mg Q6H PRN Administration Moderate Pain (Scale 4, 5, 6) NPO Date Last Intake of Fluids: 11/14/22 Time Last Intake of Fluids: 22:00 Date Last Intake of Solids: 11/14/22 Time Last Intake of Solids: 22:00 Past Medical History Medical History (Updated 11/15/22 @ 15:16 by Bowen Self MD) Hypertension Hypothyroid Kidney disease Past Surgical History Surgical History (Updated 11/15/22 @ 15:14 by Bowen Self MD) Hx laparoscopic cholecystectomy Hx of hysterectomy Social History Smoking Status: Never smoker Do You Dip or Chew Tobacco: No Hx Alcohol Use: No Hx Substance Use: No substance use type: does not use Physical Exam Vital Signs Last Vital Signs Temp 36.7 C 11/15/22 13:55 Pulse 66 11/15/22 13:55 Resp 20 11/15/22 13:55 BP 105/71 11/15/22 13:55 Pulse Ox 95 11/15/22 13:55 O2 Del Method Oxymask 11/15/22 13:55 O2 Flow Rate 3 11/15/22 13:55 Testing Laboratory Results 11/14/22 07:08 11/15/22 10:47 PT 11.5 Seconds (9.0-12.0) 11/14/22 01:30 INR 1.1 (0.9-1.1) 11/14/22 01:30 APTT 27.6 Seconds (21.0-31.0) 11/14/22 01:30 Urine Color Dark Yellow 11/14/22 02:35 Urine Appearance Turbid (Clear) A 11/14/22 02:35 Urine pH 5.0 (4.5-7.5) 11/14/22 02:35 Ur Specific [place] 1.016 (1.000-1.030) 11/14/22 02:35 Urine Protein 2+ (Negative) H 11/14/22 02:35 Urine Glucose (UA) Negative (Negative) 11/14/22 02:35 Urine Ketones Negative (Negative) 11/14/22 02:35 Urine Nitrite Negative (Negative) 11/14/22 02:35 Ur Leukocyte Esterase 3+ (Negative) H 11/14/22 02:35 Urine WBC (Auto) >30 /hpf (0-5) H 11/14/22 02:35 Urine RBC (Auto) 10-30 /hpf (0-4) H 11/14/22 02:35 U Hyaline Cast (Auto) 1-5 /lpf (0-5) 11/14/22 02:35 U Epithel Cells (Auto) 10-20 /lpf (0-5) H 11/14/22 02:35 Urine Bacteria (Auto) 1+ (Negative) H 11/14/22 02:35 Blood Type O Positive 11/14/22 14:25 Antibody Screen NEGATIVE 11/14/22 14:25 11/14/22 02:35 Urine Culture - Preliminary Urine,Clean Catch Gardnerella-like bacilli Electrocardiogram Date: 11/14/22 Findings: + NSR @ (69) and + NSST changes
[2022-11-15] MEDS ORDERED: ATROPINE SULFATE 0.1 MG/ML 10ML SYR IV PRN (15:18)
[2022-11-15] MEDS ORDERED: HYDROmorphone INJ 1 MG/ML SYRINGE IV PRN (15:18)
[2022-11-15] MEDS ORDERED: ONDANSETRON INJ 2 MG/ML 2 ML VIAL IV PRN (15:18)
[2022-11-15] MEDS ORDERED: ePHEDrine sulfate 50 MG/ML AMP IV PRN (15:18)
[2022-11-15] MEDS ORDERED: PROPOFOL IV EMULSION 10 MG/ML 20 ML VIAL IV ONE ×2 (15:27→17:10)
[2022-11-15] MEDS ORDERED: PHENYLEPHRINE HCL 10 MG/ML VIAL ONE (15:27)
[2022-11-15] MEDS ORDERED: ePHEDrine sulfate 50 MG/ML AMP ONE (15:44)
--- NOTE | 2022-11-15 17:47 | Operative Report ---
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 Chronic trochanteric bursitis. Chronic calcifications possible steroid deposition. Specimens Femoral head Drains 2 Hemovac Anesthesia Type MAC Spinal Regional Complications none Disposition Accompanied Patient To Recovery: No Disposition: Recovery Room Indications 82 old female who tripped on a carpet edge and fell and fractured her left hip with a displaced femoral neck fracture. She is essentially a household ambulator with a cane. X-rays demonstrate displaced femoral neck fracture and some osteopenia of the bones possible osteoporosis. Description of Procedure Patient was taken to the operating room anesthetized under spinal MAC regional block anesthesia. The patient was placed supine on the operating table on a sacral pad overlying an elevated kidney rest. The bed was tilted in some Trendelenburg to drain the pelvic veins and tilted to the contralateral side to get hip exposure to the involved hip. The left hip was sterilely prepped and draped in usual sterile fashion. There were some scratches on the hip from patient scratching her skin. These were superficial. The leg was shortened and actually rotated clearly displaced fracture. A Villagomez-type approach was performed to the left hip. A longitudinal incision was made over the hip. The skin was incised sharply and the subcutaneous tissues were divided down to the fascia. Subcutaneous bleeders were cauterized. The fascia momo was divided longitudinally. The gluteus medius was inspected and this demonstrated a large complex tear extending deep around the superior trochanter and into some of the minimus as well. The edges of the tear were frayed and chronically torn with multiple osteophytes over the trochanter and some calcium deposits possibly steroid deposition. There were multiple layers to the tearing. Some of the tearing extending into the vastus lateralis.. The medius was split between its anterior 40% and posterior 60% just posterior to the complete tear that was noted in the medius.. The minimus was identified split longitudinally and reflected off of the capsule. An incision was made through the capsule extending up to the acetabulum leaving the acetabular labrum intact. Some of the medius tear was intrasubstance intratendinous type tear so there was a large thin cuff of tissue still on the greater trochanter which was left intact. Multiple osteophytes were debrided. The bare spot was curetted to bleeding surface to help healing. All degenerative chronically torn edges were debrided back to better bleeding tissue. The vastus lateralis was split for 3 cm. A muscular capsular flap was elevated off of the fracture. Femoral neck fracture demonstrated 100% displacement of the fracture with proximal displacement of the neck. There was some posterior neck comminution.. The guide for the Accolade C [place] hip system was used. The neck cut was made approximately 15 mm proximal to the lesser trochanter in neutral anteversion with the oscillating saw. The remnants of the ligamentum teres were resected. The acetabulum demonstrated intact articular cartilage with a frayed labrum but intact labrum.. The acetabulum was sized for a size 48 outer diameter component based on measurement of the femoral head. There was a good suction fit with the trial. The femur was then exposed with combined flexion and external rotation. The femoral canal was prepared with a canal reamer followed by sequential broaches up to a size 5 component. The size 6 was feeling tight and I did not want to fracture the femur so we chose to stay with a 5 broach from the Accolade C stem from [place]. Trial reduction was performed with a 127 degree angle +0 neck length, 26 mm head neck and 48 bipolar. The hip was stable through flexion adduction and internal rotation and extension adduction and external rotation. Leg lengths demonstrated equal leg lengths. Soft tissue tension on the abductors appear to be appropriate for repair. The trials removed and the canal was irrigated copiously with pulsatile lavage solution. A large cement restrictor was placed at the appropriate distance below the trial stem. The canal was irrigated with a canal brush and copious irrigation followed by a tampon suction sponge. The final component was the Accolade C1 27 degree neck angle size 5 stem with a 13 mm distal spacer. This was cemented into position with a Refobacin cement. Stem was placed in neutral anteversion. After the cement cured the cobalt chromium femoral head size 26 mm, +0 offset was impacted onto the stem and then the 48 mm outer diameter bipolar head was assembled and snapped onto the head. The hip was reduced to the acetabulum and stability was verified. The wound was copiously irrigated again with pulsatile lavage and orthomix injection performed into the deep tissues and more copious irrigation. 2 Hemovac drains were placed deep into the joint and brought out laterally. Transosseous drill holes were made through the greater trochanter 2 from lateral to medial and 1 from inferior to superior and #5 FiberWire sutures were passed. First the capsule was repaired with interrupted figure of eight #1 Vicryl sutures. The gluteus minimus was then repaired with interrupted [id number]-ex-[id number] #1 Vicryl sutures and this was repaired to the greater trochanter with the #5 FiberWire using a Bharathi- Alfredito suture technique.. The gluteus medius was repaired with interrupted kzhbzt-[id number] #2 FiberWire in the delaminated soft tissue portions that were approximated and a Bharathi-Alfredito transosseous repair with the previously placed #5 FiberWire's to reinforce the repair.. The vastus lateralis fascia was repaired with emtrci-[id number] #2 FiberWire sutures in the split in the gluteus medius was repaired with qdieax-wk-idrhg #1 Vicryl sutures.. The fascia momo was repaired with interrupted afdhfg-is-hahaj #1 Vicryl sutures the subcutaneous tissue closed with . The skin was closed with santy. Sterile dressings were applied. My physician social service assistant Aki RAINES participated as assistant corporate secretary and was integral part in all aspects of the procedure including positioning, prepping, draping, leg position and soft tissue retraction, instrument management and assisted in the outer closure and will participate in the postoperative care the patient. The patient tolerated the procedure well. I attest to the content of the Intraoperative Record and any orders documented therein. Any exceptions are noted below.
--- NOTE | 2022-11-15 18:08 | XRay Report ---
XR hip 1V LT w pelvis CLINICAL HISTORY: IN PACU - Post Surgical TECHNIQUE: 2 views of the left hip and single frontal view of the pelvis were obtained. Comparison: Comparison is made to left hip radiograph 11/14/2022 FINDINGS: Patient is status post left total hip arthroplasty with expected postsurgical changes including soft tissue swelling and subcutaneous emphysema. Degenerative changes are seen in the right hip joint. IMPRESSION: Expected postoperative appearance status post placement of total hip arthroplasty. ACT 112: Negative or not required by law. Electronically signed by: Zhen Sotelo M.D. 11/15/2022 6:06 PM
[2022-11-15] MEDS ORDERED: bisacodyL 10 MG SUPP PR PRN (18:37)
[2022-11-15] MEDS ORDERED: MAGNESIUM HYDROXIDE SUSP 30 ML UDC PO PRN (18:37)
[2022-11-15] MEDS ORDERED: METOCLOPRAMIDE HCL INJ 5 MG/ML 2 ML VIAL IV PRN (18:37)
[2022-11-15] MEDS ORDERED: NALOXONE HCL 0.4 MG/1 ML VIAL/CARP IV PRN (18:37)
--- NOTE | 2022-11-15 18:41 | Anesthesiology Progress Note ---
Date of Service November 15, 2022 Anesthesia Post Procedure Vital Signs Vital Signs: Temp Pulse Pulse Resp BP BP Pulse Ox 11/15/22 18:05 89 19 107/77 95 11/15/22 18:15 36.7 C 84 22 120/83 96 11/15/22 17:55 88 19 102/68 94 11/15/22 17:47 36.8 C 94 H 15 101/67 96 11/15/22 13:55 36.7 C 66 20 105/71 95 11/15/22 13:45 37.0 C 70 16 117/73 94 11/15/22 07:54 36.6 C 65 18 117/76 96 11/14/22 23:01 36.3 C L 63 18 117/71 96 11/14/22 19:00 69 16 95 O2 Del Method O2 Flow Rate 11/15/22 18:05 Nasal Cannula 2 11/15/22 18:15 Nasal Cannula 2 11/15/22 17:55 Nasal Cannula 2 11/15/22 17:47 Nasal Cannula 2 11/15/22 13:55 Oxymask 3 11/15/22 13:45 Oxymask 4 11/15/22 07:54 Oxymask 4 11/14/22 23:01 Oxymask 4 11/14/22 19:00 Nasal Cannula 3 Pain Intensity Hip: Pain Intensity: 4 Transfer of Care Handoff Completed per policy Notes Mental Status: alert / awake / arousable and participated in evaluation Patient Amnestic to Procedure: Yes Nausea / Vomiting: adequately controlled Pain: adequately controlled Airway Patency, RR, SpO2: stable & adequate BP & HR: stable & adequate Hydration State: stable & adequate Anesthetic Complications: no major complications apparent and Pt Satisfied with anesthetic care
[2022-11-15] MEDS: SODIUM CHLORIDE 0.9% 1000ML 1,000 ML IV SCH (18:52)
[2022-11-15] MEDS: ATENOLOL 50 MG TABLET PO SCH (20:17)
[2022-11-15] MEDS: DOCUSATE SODIUM 100 MG CAP PO SCH (20:19)
[2022-11-15] MEDS: SENNA 8.6 MG TAB PO SCH (20:20)
[2022-11-16] MEDS ORDERED: Nursing to Pharmacy Communication SCH (00:15)
[2022-11-16] MEDS: LEVOTHYROXINE SODIUM 112 MCG TABLET PO SCH (05:20)
[2022-11-16] MEDS: SODIUM CHLORIDE 0.9% 1000ML 1,000 ML IV SCH ×2 (05:20→16:48)
[2022-11-16] MEDS: cefTRIAXone SODIUM 2,000 MG in DEXTROSE 5% 50 ML IV SCH (05:21)
--- NOTE | 2022-11-16 07:07 | Orthopedic Progress Note ---
Date of Service November 16, 2022 Assessment & Plan (1) Closed subcapital fracture of left femur: Plan: Postop day 1 left hip bipolar hemiarthroplasty -PT/OT: No abductor strengthening for 6 weeks. Weightbearing as tolerated with walker -DVT prophylaxis: SCDs, teds, Lovenox -Pain management as written -A.m. labs are pending -Discharge planning: Plan on discharge stable, as per medicine. Likely will need inpatient rehab placement pending therapy evals. Admission and Anticipated Discharge Date Admission Date: November 14, 2022 Supervising Physician Co-Signing Physician Notes Patient seen and examined. Agree with [facility]'s note as above. Patient is resting comfortably in the chair. Has not yet been ambulating with therapy. Denies any significant pain in the left hip. Dressings and drain are clean, dry, intact. I reviewed hip precautions with her. Subjective Patient is postop day #1 left hip bipolar hemiarthroplasty. She is doing well this morning. Mild soreness in her hip but otherwise pain is controlled. No other complaints. Denies chest pain, shortness of breath, nausea/vomiting/diarrhea headaches or dizziness. Review of Systems Review of Systems: All systems reviewed & are unremarkable except as noted in Subjective Physical Exam Physical Exam: Patient is sitting in bedside chair. Left hip: Dressing is clean, dry, intact. Hemovac on suction. Compartments are soft and nontender. No calf tenderness. Toes are mobile with good dorsiflexion. Distally neurovascular status and sensation grossly intact. Results & Data Vital Signs (Past 12 Hours) Vital Signs Temp Pulse Resp BP Pulse Ox O2 Del Method O2 Flow Rate 11/15/22 23:00 Nasal Cannula 2 11/16/22 05:00 36.8 C 68 18 113/72 95 Nasal Cannula 2 11/16/22 01:00 36.3 C L 72 18 103/65 96 Nasal Cannula 3 11/15/22 21:30 36.5 C 69 18 102/69 98 Nasal Cannula 2 11/15/22 21:21 36.5 C 70 20 113/70 94 Nasal Cannula 2 11/15/22 19:35 Room Air 11/15/22 20:20 36.5 C 74 20 105/65 96 Nasal Cannula 2 11/15/22 19:33 36.4 C L 74 17 115/64 96 Nasal Cannula 2
[2022-11-16] MEDS: DOCUSATE SODIUM 100 MG CAP PO SCH ×2 (08:23→19:30)
[2022-11-16 08:50] LABS: Basophils # (auto) 0.04 K/uL (0-0.2); Basophils % (auto) 0.3 %; Eosinophils # (auto) 0.02 K/uL (0-0.50); Eosinophils % (auto) 0.1 %; Hematocrit (blood only) 35.4 % (37.0-47.0); Hemoglobin 11.6 g/dl (12.0-16.0); Immature Granulocytes # (auto) 0.13 K/uL (0.01-0.20); Immature Granulocytes % (auto) 0.9 %; Lymphocytes # (auto) 0.51 K/uL (1.2-3.4); Lymphocytes % (auto) 3.6 %; Mean Corpuscular Hemoglobin 29.6 pg (25.0-34.0); Mean Corpuscular Hgb Conc 32.8 g/dL (32.0-36.0); Mean Corpuscular Volume 90.3 fL (80.0-100.0); Mean Platelet Volume 9.8 fL (9.4-12.4); Monocytes # (auto) 0.95 K/uL (0.11-0.59); Monocytes % (auto) 6.7 %; Neutrophils # (auto) 12.45 K/uL (1.40-6.50); Neutrophils % (auto) 88.4 %; Platelet Count 189 K/uL (130-400); RDW Coefficient of Variation 14.5 % (11.5-14.5); RDW Standard Deviation 47.3 fL (36.4-46.3); Red Blood Count 3.92 M/uL (4.20-5.40)
[2022-11-16 09:03] LABS: BUN Creatinine Ratio 20.7 (10-20); Calcium 8.6 mg/dl (8.6-10.3); Creatinine Clr Calc Pharmacy 27.4 ml/min; Est GFR (African American) 40.2 ml/min; Est GFR (Non-African American) 34.7 ml/min; Potassium 4.3 mmol/L (3.5-5.1)
[2022-11-16] MEDS: MULTIVITAMIN TAB PO SCH (13:32)
[2022-11-16] MEDS: ACETAMINOPHEN 325 MG TAB PO PRN ×3 (13:45→22:09)
--- NOTE | 2022-11-16 15:47 | Hospitalist Progress Note ---
Date of Service November 16, 2022 Assessment & Plan (1) Closed subcapital fracture of left femur: (2) Hypertension: (3) Hypothyroid: (4) Kidney disease: Plan This is an 82-year-old female who presents with mechanical fall and left hip fracture. 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 Magana, EBL 300ml Pain control, incentive spirometry, PT/OT when appropriate Hgb 11.6 today (pre-op 13.6) HTN Continue atenolol with hold parameters. Holding hctz and ramipril for now - consider resuming tomorrow. BP lower end - started on gentle fluids Hypothyroidism Continue Synthroid Chronic kidney disease Presents with a creatinine of 1.5 --> 1.48 --> 1.4. Avoid nephrotoxic agents. Follow BMP UTI Started on Rocephin, follow cultures DVT Ppx: SCDs pre-op, per ortho post-op Code status: FULL Dispo: Returned to med/surg post-op Patient seen in collaboration with Dr. Cobb. Please see addendum. I spent a total of 45 minutes coordinating, documenting, and providing care for this patient excluding time spent in the performance of separately billed services. Admission and Anticipated Discharge Date Admission Date: November 14, 2022 Supervising Physician Co-Signing Physician Notes Attending Addendum: care coordinated with DIONE Darling please refer to her notes for full details, I agree with her notes patient seen and examined, records reviewed by myself as well on exam, patient seen sitting up in bed, comfortable, not in distress, in good spirits Patient's daughter at the bedside visiting Patient states she feels fine overall Left hip pain well controlled no other symptoms VS noted and reviewed oriented , not in distress, speaks in sentences with no effort nor accessory muscle use normal rate, regular rhythm, no murmurs clear breath sounds bilaterally non distended, soft, nontender no bipedal edema, erythema, warmth no neuro deficits All labs noted and reviewed ASSESSMENT AND PLAN diagnoses and plan of care as per DIONE Darling's notes Bob Cobb MD Subjective Seen and examined POD#1 s/p L hip bipolar hemiarthroplasty. Feeling well today, endorsing some soreness in hip but otherwise comfortable. No new issues overnight. Tolerated breakfast without issue. Riley catheter in place. Denies chest pain, shortness of breath, nausea/vomiting/diarrhea headaches or dizziness. Review of Systems Review of Systems: At least ten systems reviewed and negative except as noted in the HPI. Physical Exam Physical Exam: Gen: WD/WN, NAD, lying in bed, A&Ox3 HEENT: Normocephalic, atraumatic, conjunctivae moist, sclerae anicteric, mucous membranes moist Lung: Clear to Auscultation bilaterally, no wheezes/rales/rhonchi Heart: Regular rate, regular rhythm, no murmurs, rubs, or gallops Abdomen: Soft, NT, ND +BS x 4 Extremities:L proximal thigh with surgical dressing in place, drain visualized, no edema : Riley Skin: Warm, no rash Results & Data Results & Data Vital Signs (Past 12 Hours) Vital Signs Temp Pulse Resp BP Pulse Ox Pulse Ox Pulse Ox 11/16/22 15:27 36.8 C 70 16 99/65 L 94 11/16/22 11:19 36.6 C 65 16 96/60 L 99 11/16/22 10:40 85 L 94 11/16/22 08:15 36.7 C 66 16 109/71 97 11/16/22 08:09 11/16/22 05:00 36.8 C 68 18 113/72 95 O2 Del Method O2 Flow Rate 11/16/22 15:27 Nasal Cannula 2 11/16/22 11:19 Nasal Cannula 2 11/16/22 10:40 11/16/22 08:15 Nasal Cannula 2 11/16/22 08:09 Nasal Cannula 2 11/16/22 05:00 Nasal Cannula 2 Laboratory Results Short CBC 11/16/22 Range/Units 07:44 WBC 14.10 H (4.8-10.8) K/ul Hgb 11.6 L (12.0-16.0) g/dl Hct 35.4 L (37.0-47.0) % Plt Count 189 (130-400) K/uL BMP 11/16/22 07:44 Sodium 141 Potassium 4.3 Chloride 110 H Carbon Dioxide 23 BUN 29 H Creatinine 1.40 H Glucose 99 Calcium 8.6 Diagnostic Findings Hip X-Ray 11/14/22 01:22 XR hip LT min 2V CLINICAL HISTORY: fall / inj TECHNIQUE: 2 views of the right hip and single frontal view of the pelvis were obtained. Comparison: None available at the time of this dictation. FINDINGS: There is a subcapital/transcervical fracture of the left femoral neck. There is lateral displacement and mild overriding of fragments. Joint spaces are well- preserved. Soft tissue swelling is seen. IMPRESSION: Moderately displaced left femoral neck fracture is seen with associated soft tissue swelling. ACT 112: Negative or not required by law. Electronically signed by: Zhen Sotelo M.D. 11/14/2022 7:57 AM Chest X-Ray 11/14/22 01:49 XR chest 1V portable HISTORY: 82 years-old Female protocol preoperative exam. No acute chest complaints. Acute fracture of the left hip COMPARISON: None TECHNIQUE: AP view of the chest FINDINGS: Cardiac silhouette is enlarged. Atherosclerosis of aorta. Large hiatal hernia. No pneumothorax, large pleural effusion or overt pulmonary edema. Hyperinflation with blunting of the costophrenic angles. Degenerative changes of the shoulders and spine with loose bodies of the glenohumeral joint. IMPRESSION: 1. Cardiomegaly without acute process. 2. Hiatal hernia. ACT 112: Negative or not required by law. The above report was generated using voice recognition software. It may contain grammatical, syntax or spelling errors. Electronically signed by: José Miguel Mcgovern M.D. 11/14/2022 8:38 AM Hip/Pelvis X-Ray 11/15/22 16:23 XR hip 1V LT w pelvis CLINICAL HISTORY: IN PACU - Post Surgical TECHNIQUE: 2 views of the left hip and single frontal view of the pelvis were obtained. Comparison: Comparison is made to left hip radiograph 11/14/2022 FINDINGS: Patient is status post left total hip arthroplasty with expected postsurgical changes including soft tissue swelling and subcutaneous emphysema. Degenerative changes are seen in the right hip joint. IMPRESSION: Expected postoperative appearance status post placement of total hip arthroplasty. ACT 112: Negative or not required by law. Electronically signed by: Zhen Sotelo M.D. 11/15/2022 6:06 PM
[2022-11-16] MEDS ORDERED: ENOXAPARIN INJ 40 MG/0.4 ML SYR SQ SCH (16:30)
[2022-11-16] MEDS ORDERED: ENOXAPARIN INJ 30 MG/0.3 ML SYR SQ SCH (16:30)
[2022-11-16] MEDS: SENNA 8.6 MG TAB PO SCH (19:30)
[2022-11-16] MEDS: ATENOLOL 50 MG TABLET PO SCH (20:45)
[2022-11-17] MEDS ORDERED: LORazepam 0.5 MG TAB PO STA (00:48)
[2022-11-17] MEDS: SODIUM CHLORIDE 0.9% 1000ML 1,000 ML IV SCH (04:00)
[2022-11-17] MEDS: LEVOTHYROXINE SODIUM 112 MCG TABLET PO SCH (05:03)
[2022-11-17] MEDS: cefTRIAXone SODIUM 2,000 MG in DEXTROSE 5% 50 ML IV SCH (05:05)
--- NOTE | 2022-11-17 07:30 | Orthopedic Progress Note ---
Date of Service November 17, 2022 Assessment & Plan (1) Closed subcapital fracture of left femur: Plan: Postop day 2 left hip bipolar hemiarthroplasty -PT/OT: No abductor strengthening for 6 weeks. Weightbearing as tolerated with walker -DVT prophylaxis: SCDs, teds, Lovenox -Pain management as written -A.m. labs are pending -Discharge planning: Plan on discharge stable, as per medicine. Planning for [facility] for further rehab Orthopedics will sign off at this time. Patient remaining stable orthopedically. Discharge instructions placed in the discharge section. Patient to follow-up with Dr. Magana in 2 weeks. Admission and Anticipated Discharge Date Admission Date: November 14, 2022 Subjective Postop day 2 Patient sleeping upon arrival but easily awoken. No complaint this morning. Pain is controlled. She states that she was up with physical therapy yesterday and it went well. Physical Exam Physical Exam: Dressings have been changed. Wound benign with mild swelling consistent with surgery. Mild drainage noted since removal of drain. Calves are soft and nontender. Neurovascular intact. Toes are mobile. Leg lengths appear equal. Results & Data Vital Signs (Past 12 Hours) Vital Signs Temp Pulse Resp BP Pulse Ox O2 Del Method O2 Flow Rate 11/17/22 07:26 36.4 C L 63 16 120/73 95 Nasal Cannula 2 11/16/22 22:13 36.9 C 70 16 103/68 95 Nasal Cannula
[2022-11-17 08:30] LABS: Hematocrit (blood only) 31.5 % (37.0-47.0); Hemoglobin 10.4 g/dl (12.0-16.0); Mean Corpuscular Hemoglobin 29.7 pg (25.0-34.0); Platelet Count 169 K/uL (130-400); RDW Coefficient of Variation 14.6 % (11.5-14.5); RDW Standard Deviation 47.3 fL (36.4-46.3); White Blood Count 10.54 K/ul (4.8-10.8)
[2022-11-17 08:48] LABS: BUN Creatinine Ratio 19.1 (10-20); Calcium 8.1 mg/dl (8.6-10.3); Creatinine Clr Calc Pharmacy 29.3 ml/min; Est GFR (African American) 43.5 ml/min; Est GFR (Non-African American) 37.6 ml/min; Potassium 4.1 mmol/L (3.5-5.1)
[2022-11-17] MEDS: DOCUSATE SODIUM 100 MG CAP PO SCH (09:06)
[2022-11-17] MEDS: MULTIVITAMIN TAB PO SCH (09:06)
[2022-11-17] MEDS: ACETAMINOPHEN 325 MG TAB PO PRN (13:03)
--- NOTE | 2022-11-17 13:03 | Discharge Summary ---
Discharge Summary Date of Service November 17, 2022 Notes For Next Care Provider MONITOR PULSE OXIMETRY WHILE AMBULATING. MONITOR BLOOD PRESSURE CLOSELY. RAMIPRIL AND HCTZ ON HOLD TO PREVENT HYPOTENSION. CEFDINIR X2 MORE DAYS FOR UTI. REPEAT BASIC MEDICAL PROFILE IN 1 WEEK. ENCOURAGED TO INCREASE ORAL FLUID INTAKE. Medication Changes From Visit New medications: Cefdinir 300 mg daily x2 days Lovenox 30 mg subcutaneous daily x30 days Tylenol as needed for pain Admission HPI Per Admitting Provider HISTORY OF PRESENT ILLNESS: This is an 82-year-old female with past medical history significant for hypertension, hypothyroidism, comes because of mechanical fall at home. She tripped on the carpet and fell on the left side. She was able to get up and sit in the chair, but had a lot of pain, was brought in here and found to have a left hip fracture, hemodynamically stable. Denies any chest pain, no shortness of breath, no cough, no fever, no headache, no blurred visions, no earache, no runny nose, no sore throat, no nausea, no abdominal pain. Normal bowel and bladder movements. She says she ambulates with a cane. She lives with her sister. She says because of pain in her hips and sciatica, she could not ambulate for long distances. Denies any heart disease, lung disease or kidney disease. Admission Exam Per Admitting Provider GENERAL: The patient is of moderate build, not in acute distress. VITAL SIGNS: Temperature 36.7, pulse 53, respiratory rate 16, blood pressure 128/92, oxygen 98% on room air. HEENT: Pupils equal, round and reactive to light. Oral mucosa dry. NECK: No JVD or neck masses. CARDIOVASCULAR: S1 and S2 heard. Regular rate and rhythm. No murmur, no gallop. RESPIRATORY SYSTEM: Normal AP diameter. No accessory muscle use. No wheezing or crackles. ABDOMEN: Soft, bowel sounds present, nontender, no distention. CENTRAL NERVOUS SYSTEM: Alert and oriented. Speech is clear. No facial droop. Obeys simple commands. Moves extremities. EXTREMITIES: Left lower extremity shortened and externally rotated. No erythema seen. Principal Dx & Hospital Course #1 = Principal Diagnosis (1) Closed subcapital fracture of left femur: (2) Hypertension: (3) Hypothyroid: (4) Kidney disease: Plan This is an 82-year-old female who presents with mechanical fall and left hip fracture. 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 Magana, EBL 300ml per Ortho: No abductor strengthening for 6 weeks. Weightbearing as tolerated with walker Tylenol as needed for pain Lovenox subcutaneous for DVT prophylaxis x4 weeks Follow-up with orthopedic surgeon Dr. Padilla in 1 week HTN Continue atenolol with hold parameters. Holding hctz and ramipril for now-monitor blood pressure closely and resume accordingly Hypothyroidism Continue Synthroid Acute kidney injury vs chronic kidney disease Presents with a creatinine of 1.5 --> 1.48.--> 1.3 Avoid nephrotoxic agents Encourage oral fluid intake Repeat basic metabolic profile in 1 week UTI Patient reporting dysuria at home Urine culture: Gardnerella species Received ceftriaxone IV x3 days while inpatient Continue cefdinir 3 mg daily x2 days to complete 5-day course Large Hiatal Hernia asymptomatic please follow up as outpatient DVT Ppx: Lovenox subcutaneous Code status: FULL Dispo: [facility] plan of care discussed with patient in detail and at length all questions answered she is understanding, agreeable, comfortable with the plan of care Discharge Exam General- oriented x 3, not in distress, speaks in sentences with no effort or accessory muscle use Eyes- anicteric Neck- no JVD Lungs- clear breath sounds bilaterally, no rales/wheezes Heart- normal rate, regular rhythm; no murmurs Abdomen- normal bowel sounds, nondistended, soft, nontender Extremities- no pretibial edema, no calf tenderness Left hip-dressing in place, small amount of blood noted, no active bleeding, no hematoma, very minimal edema No warmth/tenderness Neuro- alert, oriented x 3; no gross focal neurologic deficits Skin- warm & dry Updated Medication List Medication Instructions Recorded Confirmed Type atenolol 50 mg tablet 50 mg PO QPM 11/14/22 11/14/22 History hydrochlorothiazide 25 mg tablet 25 mg PO DAILY 11/14/22 11/14/22 History levothyroxine 112 mcg tablet 112 mcg PO DAILYBB 11/14/22 11/14/22 History ramipril 10 mg capsule 10 mg PO DAILY 11/14/22 11/14/22 History acetaminophen 325 mg tablet 650 mg PO Q4H PRN fever or pain 11/17/22 Rx #20 tabs cefdinir 300 mg capsule 300 mg PO DAILY 2 days #2 caps 11/17/22 Rx docusate sodium 100 mg capsule 100 mg PO BID 30 days #60 caps 11/17/22 Rx enoxaparin 30 mg/0.3 mL 30 mg (0.3 mL) subcut Q24H 30 days 11/17/22 Rx subcutaneous syringe (Lovenox) #9 mL multivitamin with folic acid 400 1 tab PO QAM #30 tabs 11/17/22 Rx mcg tablet (Daily-Jong (with folic acid)) sennosides 8.6 mg tablet (Senokot) 17.2 mg PO HS #30 tabs 11/17/22 Rx Hospital Stay Data Consultations 11/14/22 02:45 ED Decision to Admit Stat 11/14/22 06:56 Consult Orthopedic Surgery Routine Procedures Performed Operation Date: 11/15/22 13:00 Actual Procedures p Left Bipolar Hemiarthroplasty - Cemented, Repair of Chronic Abductor Tear(Left) - Trevon Magana MD Diagnostic Imagining Performed XR chest 1V portable HISTORY: 82 years-old Female protocol preoperative exam. No acute chest complaints. Acute fracture of the left hip COMPARISON: None TECHNIQUE: AP view of the chest FINDINGS: Cardiac silhouette is enlarged. Atherosclerosis of aorta. Large hiatal hernia. No pneumothorax, large pleural effusion or overt pulmonary edema. Hyperinflation with blunting of the costophrenic angles. Degenerative changes of the shoulders and spine with loose bodies of the glenohumeral joint. IMPRESSION: 1. Cardiomegaly without acute process. 2. Hiatal hernia. ACT 112: Negative or not required by law. Pending Results Patient Have Any Pending Studies at Discharge: No Discharge Instructions Given to Patient (Per Discharging Provider) MONITOR PULSE OXIMETRY WHILE AMBULATING. MONITOR BLOOD PRESSURE CLOSELY. RAMIPRIL AND HCTZ ON HOLD TO PREVENT HYPOTENSION. CEFDINIR X2 MORE DAYS FOR UTI. REPEAT BASIC MEDICAL PROFILE IN 1 WEEK. ENCOURAGED TO INCREASE ORAL FLUID INTAKE. PLEASE REFER TO ACCOMPANYING HOSPITAL DISCHARGE SUMMARY FOR FURTHER DETAILS. Total Time Total Time Spent Total Time Spent (In Minutes): >30 minutes
--- NOTE | 2022-11-17 13:05 | Hospitalist Progress Note ---
Date of Service November 17, 2022 Assessment & Plan (1) Closed subcapital fracture of left femur: (2) Hypertension: (3) Hypothyroid: (4) Kidney disease: Plan This is an 82-year-old female who presents with mechanical fall and left hip fracture. 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 Magana, EBL 300ml per Ortho: No abductor strengthening for 6 weeks. Weightbearing as tolerated with walker Tylenol as needed for pain Lovenox subcutaneous for DVT prophylaxis x4 weeks Follow-up with orthopedic surgeon Dr. Padilla in 1 week HTN Continue atenolol with hold parameters. Holding hctz and ramipril for now-monitor blood pressure closely and resume accordingly Hypothyroidism Continue Synthroid Acute kidney injury vs chronic kidney disease Presents with a creatinine of 1.5 --> 1.48.--> 1.3 Avoid nephrotoxic agents Encourage oral fluid intake Repeat basic metabolic profile in 1 week UTI Patient reporting dysuria at home Urine culture: Gardnerella species Received ceftriaxone IV x3 days while inpatient Continue cefdinir 3 mg daily x2 days to complete 5-day course DVT Ppx: Lovenox subcutaneous Code status: FULL Dispo: [facility] plan of care discussed with patient in detail and at length all questions answered she is understanding, agreeable, comfortable with the plan of care Admission and Anticipated Discharge Date Admission Date: November 14, 2022 Subjective ff up for left hip fracture status post fall, etc. Seen sitting up in bed, comfortable, not in distress, in good spirits States she feels fine overall Denies shortness of breath, cough, chest pain, palpitations, dizziness No abdominal pain, nausea vomiting Ambulated to the bathroom today with a walker No symptoms No other symptoms States she is okay for [facility] today Review of Systems Review of Systems: all noted and negative except for above Physical Exam Physical Exam: General- oriented x 3, not in distress, speaks in sentences with no effort or accessory muscle use Eyes- anicteric Neck- no JVD Lungs- clear breath sounds bilaterally, no rales/wheezes Heart- normal rate, regular rhythm; no murmurs Abdomen- normal bowel sounds, nondistended, soft, nontender Extremities- no pretibial edema, no calf tenderness Left hip-dressing in place, small amount of blood noted, no active bleeding, no hematoma, very minimal edema No warmth/tenderness Neuro- alert, oriented x 3; no gross focal neurologic deficits Skin- warm & dry Results & Data Results & Data Vital Signs (Past 12 Hours) Vital Signs Temp Pulse Resp BP Pulse Ox O2 Del Method O2 Flow Rate 11/17/22 08:59 Nasal Cannula 2 11/17/22 07:26 36.4 C L 63 16 120/73 95 Nasal Cannula 2 all noted and reviewed including below
== END 2022-11-17 16:36 | DRG 522 ==
LOC: ED 01:09 → SUATTDRO 05:02 → EDINP 05:02 → 3N 06:56

== ENCOUNTER 2022-12-08 10:26 | Inpatient (IN) ==
--- NOTE | 2022-12-08 11:17 | Emergency Department Note ---
Impression & Plan Drainage from surgical wound ED Provider Note Provider: Maicol De Los Santos MD DATE OF SERVICE: 12/08/2022 CHIEF COMPLAINT: Wound leaking HISTORY OF PRESENT ILLNESS: Patient is a 82-year-old female history of hypothyroidism and hypertension presenting here today reporting that she noted just this morning some yellowish clear drainage from the upper part of her left lateral hip wound from a left hemiarthroplasty related to subcapital femur fracture that occurred just over 3 weeks ago. Repaired by [facility] here. Has been doing well and states has been ambulating well and has no pain. Denies fever. Reports she had a bit of chronic swelling in the left lower leg for the past week. States she did take a shower yesterday but again denies any trauma or irritation related to the site. States about a week ago she had her postop santy removed from her left hip and has been doing well. Feels fine otherwise. Was scheduled to see her orthopedic group today but given that she started to have fair amount of clear leaking from the top of the wound came here for evaluation. PAST MEDICAL HISTORY: As noted above MEDICATIONS: Reviewed home medications SOCIAL HISTORY: Non-smoker PHYSICAL EXAM: GENERAL: alert and oriented in no acute distress on stretcher Head: normocephalic and atraumatic EYES: No injection, discharge or icterus. NECK: Trachea midline. ENT: Mucous membranes pink and moist. LUNGS: Airway patent. No retractions or tachypnea HEART: Regular rate and rhythm. ABDOMEN: Soft and non-tender, without guarding or rebound. SKIN: Acyanotic, warm, dry EXTREMITIES: Remedy of 1+ to 2+ edema diffusely. There is a left lateral hip healing incision. Appears santy have all been removed. The superior aspect there is an approximately 1/2 cm area of swelling at the wound line without clear dehiscence. There is some clear serous to yellow drainage from this area but no blood. Some slight edema but no fluctuance. Surrounding erythema approximately a total of 3 to 4 cm. Nontender. NEUROLOGICAL: No focal deficits. No aphasia. No facial droop or slurred speech. Ambulatory. Patient's laboratory studies reviewed. Differential includes Fracture, subluxation, dislocation, DVT, postop infection, seroma, wound dehiscence, as well as other pathologies. IMPRESSION/MEDICAL DECISION MAKING: Patient with some clear drainage nearly from the left upper orthopedic repair site. [place] removed about a week ago. Patient without fevers or other s ignificant complaint of pain. Clear serous drainage. No clear fluctuance. Good range of motion of the left leg in this region although bit of ongoing slight swelling of the left lower leg. Nontender of the calf. No trauma. Given this I doubt fracture or dislocation and have a low suspicion for these. Do not believe x-ray would be that helpful. Basic CBC obtained to look for any leukocytosis but no other significant systemic signs of fever or unwell feelings. Some slight erythema but wonder if this may be a bit of postop seroma draining. Discussed with the orthopedic screw. Placed on left lower extremity previously anticoagulated close postop setting without significant calf tender ness I have lower suspicion slight drainage is related to a DVT. CBC with slight anemia but no significant leukocytosis. Cell count is actually improving compared to October. Discussed with orthopedic team and the physician respiratory therapy assistant evaluated here. Seem consistent with likely a postop seroma versus less likely an infection. Certainly does not seem septic. Seen by orthopedics and they decided to bring the patient into the hospital for further observation and evaluation of this wound. DIAGNOSIS: Left hip postop wound drainage DISPOSITION: Seen by orthopedics and later admitted by the medical team. Patient was agreeable with this plan. Past Med/Surg History Medical History Closed subcapital fracture of left femur Hypertension Hypothyroid Surgical History History of hemiarthroplasty of left hip Hx laparoscopic cholecystectomy Hx of hysterectomy Social History Smoking Status: Never smoker Second Hand Exposure: No; Do You Dip or Chew Tobacco: No; Hx Alcohol Use: No Hx Substance Use: No Preferred Language: German Communication Ability: Effective Tea Bag Machine Tender Required: No Beliefs That Will Affect Care: None Current Living Situation: Family Current Living Situation Comment: Lives with daughter, another daughter lives next door Feels Safe at Home: Yes Assistive Devices: Cane Allergies Allergies Allergy/AdvReac Type Severity Reaction Status Date / Time No Known Allergies Allergy Unverified 11/14/22 05:02 Home Meds Home Medications Medication Instructions Recorded Confirmed apixaban 2.5 mg tablet (Eliquis) 2.5 mg PO BID 12/08/22 12/08/22 atenolol 25 mg tablet 12.5 mg PO QPM 12/08/22 12/08/22 cefadroxil 500 mg capsule 500 mg PO BID 12/08/22 12/08/22 levothyroxine 125 mcg tablet 125 mcg PO DAILYBB 12/08/22 12/08/22 risperidone 0.25 mg tablet 0.25 mg PO QPM 12/08/22 12/08/22 Previous Rx's Medication Instructions Recorded acetaminophen 325 mg tablet 650 mg PO Q4H PRN fever or pain 11/17/22 #20 tabs multivitamin with folic acid 400 1 tab PO QAM #30 tabs 11/17/22 mcg tablet (Daily-Jong (with folic acid)) Results & Data (ED) Vital Signs Vital Signs - 24 hr 12/08/22 10:30 12/08/22 13:07 Temperature 36.6 C Temperature Source Temporal Artery Scan Pulse Rate 86 Pulse Rate [Right Finger] 75 Respiratory Rate 18 16 Respiratory Effort / Characteristics Non-Labored Spontaneous Non-Labored Spontaneous Respiratory Depth Normal Normal Blood Pressure 132/81 Blood Pressure [Right Arm] 131/81 Blood Pressure Mean 98 Blood Pressure Mean [Right Arm] 97 Pulse Oximetry 98 94 Oxygen Delivery Method Room Air Sepsis Recent Fever Within 48 Hours No Sepsis New/Unexplained Change in Mental Status No Sepsis Action Taken by Nursing No Action Required Laboratory Data 12/08/22 11:23 12/08/22 11:23 Lab Results 12/08/22 12/08/22 12/08/22 Range/Units 11:23 11:23 11:23 WBC 8.26 (4.8-10.8) K/ul RBC 3.32 L (4.20-5.40) M/uL Hgb 9.8 L (12.0-16.0) g/dl Hct 30.3 L (37.0-47.0) % MCV 91.3 (80.0-100.0) fL MCH 29.5 (25.0-34.0) pg MCHC 32.3 (32.0-36.0) g/dL RDW Std Deviation 49.6 H (36.4-46.3) fL RDW Coeff of Adam 14.8 H (11.5-14.5) % Plt Count 348 (130-400) K/uL MPV 8.9 L (9.4-12.4) fL Immature Gran % (Auto) 1.0 % Neut % (Auto) 78.7 % Lymph % (Auto) 7.5 % [place] % (Auto) 11.1 % Eos % (Auto) 1.2 % Baso % (Auto) 0.5 % Neut # (Auto) 6.50 (1.40-6.50) K/uL Lymph # (Auto) 0.62 L (1.2-3.4) K/uL [place] # (Auto) 0.92 H (0.11-0.59) K/uL Eos # (Auto) 0.10 (0-0.50) K/uL Baso # (Auto) 0.04 (0-0.2) K/uL Immature Gran # (Auto) 0.08 (0.01-0.20) K/uL ESR 38 H (0-30) mm/hr Sodium 140 (136-145) mmol/L Potassium 3.9 (3.5-5.1) mmol/L Chloride 110 H (98-107) mmol/L Carbon Dioxide 23 (21-32) mmol/L Anion Gap 7 (3-11) BUN 16 (6-23) mg/dl Creatinine 1.06 (0.6-1.2) mg/dl Est Cr Clr Drug Dosing Not Reportable Est GFR ( Amer) 56.2 ml/min Est GFR (Non-Af Amer) 48.5 ml/min BUN/Creatinine Ratio 15.1 (10-20) Glucose 106 H (70-99(Fasting)) mg/dl Calcium 8.6 (8.6-10.3) mg/dl C-Reactive Protein 12.31 H (0-0.5) mg/dl SARS-CoV-2, RNA, NAAT (NEGATIVE) 12/08/22 Range/Units 12:27 WBC (4.8-10.8) K/ul RBC (4.20-5.40) M/uL Hgb (12.0-16.0) g/dl Hct (37.0-47.0) % MCV (80.0-100.0) fL MCH (25.0-34.0) pg MCHC (32.0-36.0) g/dL RDW Std Deviation (36.4-46.3) fL RDW Coeff of Adam (11.5-14.5) % Plt Count (130-400) K/uL MPV (9.4-12.4) fL Immature Gran % (Auto) % Neut % (Auto) % Lymph % (Auto) % [place] % (Auto) % Eos % (Auto) % Baso % (Auto) % Neut # (Auto) (1.40-6.50) K/uL Lymph # (Auto) (1.2-3.4) K/uL [place] # (Auto) (0.11-0.59) K/uL Eos # (Auto) (0-0.50) K/uL Baso # (Auto) (0-0.2) K/uL Immature Gran # (Auto) (0.01-0.20) K/uL ESR (0-30) mm/hr Sodium (136-145) mmol/L Potassium (3.5-5.1) mmol/L Chloride (98-107) mmol/L Carbon Dioxide (21-32) mmol/L Anion Gap (3-11) BUN (6-23) mg/dl Creatinine (0.6-1.2) mg/dl Est Cr Clr Drug Dosing Est GFR ( Amer) ml/min Est GFR (Non-Af Amer) ml/min BUN/Creatinine Ratio (10-20) Glucose (70-99(Fasting)) mg/dl Calcium (8.6-10.3) mg/dl C-Reactive Protein (0-0.5) mg/dl SARS-CoV-2, RNA, NAAT NEGATIVE (NEGATIVE) Administered Medications Vancomycin HCl 1,500 mg/ (Sodium Chloride) 530 mls @ 200 mls/hr IV NOW STA; Protocol Stop: 12/08/22 17:35 Last Admin: 12/08/22 16:00 Dose: 200 mls/hr Documented By: MARIS Discontinued Medications Piperacillin Sod/Tazobactam (Sod 4.5 gm/ Dextrose) 120 mls @ 240 mls/hr IV NOW ONE; Protocol Stop: 12/08/22 16:14 Last Infusion: 12/08/22 16:35 Dose: 0 mls/hr Documented By: Admin: 12/08/22 16:01 Dose: 240 mls/hr Documented By: JLP Discharge Plan Visit Data Chief Complaint: Hip Pain Stated Complaint: HIP ISSUES, JUST HAD SURGERY ED Provider: Maicol De Los Santos Discharge Problem: Drainage from surgical wound Patient Disposition: Admitted As Inpatient Discharge Instructions Interventions: ED Discharge Assessment Last Done: 12/08/22 15:10
[2022-12-08 11:45] LABS: Basophils # (auto) 0.04 K/uL (0-0.2); Basophils % (auto) 0.5 %; Eosinophils % (auto) 1.2 %; Hematocrit (blood only) 30.3 % (37.0-47.0); Hemoglobin 9.8 g/dl (12.0-16.0); Immature Granulocytes # (auto) 0.08 K/uL (0.01-0.20); Lymphocytes # (auto) 0.62 K/uL (1.2-3.4); Lymphocytes % (auto) 7.5 %; Mean Corpuscular Hemoglobin 29.5 pg (25.0-34.0); Mean Corpuscular Hgb Conc 32.3 g/dL (32.0-36.0); Mean Corpuscular Volume 91.3 fL (80.0-100.0); Mean Platelet Volume 8.9 fL (9.4-12.4); Monocytes # (auto) 0.92 K/uL (0.11-0.59); Monocytes % (auto) 11.1 %; Neutrophils % (auto) 78.7 %; Platelet Count 348 K/uL (130-400); RDW Coefficient of Variation 14.8 % (11.5-14.5); RDW Standard Deviation 49.6 fL (36.4-46.3); Red Blood Count 3.32 M/uL (4.20-5.40); White Blood Count 8.26 K/ul (4.8-10.8)
[2022-12-08 11:55] LABS: Anion Gap 7 (3-11); BUN Creatinine Ratio 15.1 (10-20); Blood Urea Nitrogen 16 mg/dl (6-23); Calcium 8.6 mg/dl (8.6-10.3); Carbon Dioxide 23 mmol/L (21-32); Chloride 110 mmol/L (98-107); Est GFR (African American) 56.2 ml/min; Est GFR (Non-African American) 48.5 ml/min; Glucose 106 mg/dl (70-99(Fasting)); Potassium 3.9 mmol/L (3.5-5.1); Sodium 140 mmol/L (136-145)
--- NOTE | 2022-12-08 13:19 | Orthopedic Consultation ---
Date of Consultation December 08, 2022 Assessment & Plan (1) Drainage from surgical wound: I have discussed the case with Drs. Chapman and Ch[place]. Dr. Chapman will be taking over her care at this time. With increased drainage from the wound over 3 weeks out from her surgery, it is felt that exploratory surgery of the wound should be performed with an irrigation and debridement with cultures to rule out infection of the left hip. I have spoken to Ale GAO who will admit the patient from [facility] service. Patient is on low-dose Eliquis twice daily. She feels that her last dose was last night and does not remember taking at this morning. She will need to be at least 24 hours off of the Eliquis before surgery can occur. We will continue IV antibiotics at this time. History of Present Illness Reason for Consultation: Rule out left hip wound infection History of Present Illness Patient is an 82-year-old white female known to our practice who is status post left bipolar hemiarthroplasty by Dr. Magana in October. Patient had suffered a hip fracture and was treated with left bipolar hemiarthroplasty. Patient's postoperative recovery went well and she was transferred to a rehab facility at the time of her discharge. Patient states that she was seen in the office for her first wound check. Jo were removed. It was noted that she had jessica thema around the wound itself but no drainage. Patient was not having any pain and no symptoms of infection including fever chills, nausea etc. She had a return appointment for 130 this afternoon. Patient woke up this morning and that she was going about her morning routine, she noticed that she started having drainage from the left hip wound. She states that it was a serous thin yellow fluid without odor. She continues to not have any pain in the left hip. She is ambulating normally. Continues to deny any fevers, chills, lightheadedness, shortness of breath. She felt the situation to be urgent and came into the emergency room rather than waiting to go see Dr. Magana today. Allergies Allergy/AdvReac Type Severity Reaction Status Date / Time No Known Allergies Allergy Unverified 11/14/22 05:02 Home Medications Medication Instructions Recorded Confirmed Type acetaminophen 325 mg tablet 650 mg PO Q4H PRN fever or pain 11/17/22 12/08/22 Rx #20 tabs multivitamin with folic acid 400 1 tab PO QAM #30 tabs 11/17/22 12/08/22 Rx mcg tablet (Daily-Jong (with folic acid)) apixaban 2.5 mg tablet (Eliquis) 2.5 mg PO BID 12/08/22 12/08/22 History atenolol 25 mg tablet 12.5 mg PO QPM 12/08/22 12/08/22 History cefadroxil 500 mg capsule 500 mg PO BID 12/08/22 12/08/22 History levothyroxine 125 mcg tablet 125 mcg PO DAILYBB 12/08/22 12/08/22 History risperidone 0.25 mg tablet 0.25 mg PO QPM 12/08/22 12/08/22 History Patient History Medical History Hypertension Hypothyroid Kidney disease Surgical History Hx laparoscopic cholecystectomy Hx of hysterectomy Social History Smoking Status: Never smoker Second Hand Exposure: No; Do You Dip or Chew Tobacco: No; Hx Alcohol Use: No Hx Substance Use: No Preferred Language: Polish Communication Ability: Effective Yard Stocker Required: No Beliefs That Will Affect Care: None Current Living Situation: Family Current Living Situation Comment: Lives with daughter, another daughter lives next door Feels Safe at Home: Yes Assistive Devices: Cane Physical Exam Physical Exam: Patient is an 82-year-old white female who appears her stated age. Alert and oriented x3. No acute distress. Pleasant and cooperative On examination of her left lower extremity, she has a well-healed incision over the left anterior hip. She still has some residual erythema and spots around the incision. She has some residual swelling of the thigh and some firm swelling around the incision at the proximal portion of the incision, she has 1 small area approximately a centimeter or less that appears to have opened. She has some yellow fibrous tissue between the skin edges. She has a small amount of serous yellow drainage coming from the wound. I attempted to express more serum from the wound however it only comes out at a slow trickle off and on. There is no gross purulence noted at this time. No odor. She has painless range of motion of her left hip at this time. She denies any pain down the lower extremity. She has good range of motion of the left knee as well as the left ankle. No other complaints of pain or discomfort in the right lower extremity or upper extremities. Distal pulses are equal bilaterally of the upp er and lower extremities there is no gross motor or sensory loss seen at this time Results & Data Vital Signs (Past 12 Hours) Vital Signs Temp Pulse Pulse Resp BP BP Pulse Ox 12/08/22 13:07 75 16 131/81 94 12/08/22 10:30 36.6 C 86 18 132/81 98 O2 Del Method 12/08/22 13:07 Room Air 12/08/22 10:30 Laboratory Results Laboratory Results WBC 8.26 K/ul (4.8-10.8) 12/08/22 11: RBC 3.32 M/uL (4.20-5.40) L 12/08/22 11:23 Hgb 9.8 g/dl (12.0-16.0) L 12/08/22 11:23 Hct 30.3 % (37.0-47.0) L 12/08/22 11:23 MCV 91.3 fL (80.0-100.0) 12/08/22 11:23 MCH 29.5 pg (25.0-34.0) 12/08/22 11:23 MCHC 32.3 g/dL (32.0-36.0) 12/08/22 11:23 RDW Std Deviation 49.6 fL (36.4-46.3) H 12/08/22 11:23 RDW Coeff of Adam 14.8 % (11.5-14.5) H 12/08/22 11:23 Plt Count 348 K/uL (130-400) 12/08/22 11:23 MPV 8.9 fL (9.4-12.4) L 12/08/22 11:23 Immature Gran % (Auto) 1.0 % 12/08/22 11:23 Neut % (Auto) 78.7 % 12/08/22 11:23 Lymph % (Auto) 7.5 % 12/08/22 11:23 [place] % (Auto) 11.1 % 12/08/22 11:23 Eos % (Auto) 1.2 % 12/08/22 11:23 Baso % (Auto) 0.5 % 12/08/22 11:23 Neut # (Auto) 6.50 K/uL (1.40-6.50) 12/08/22 11: Lymph # (Auto) 0.62 K/uL (1.2-3.4) L 12/08/22 11: [place] # (Auto) 0.92 K/uL (0.11-0.59) H 12/08/22 11:23 Eos # (Auto) 0.10 K/uL (0-0.50) 12/08/22 11: Baso # (Auto) 0.04 K/uL (0-0.2) 12/08/22 11: Immature Gran # (Auto) 0.08 K/uL (0.01-0.20) 12/08/22 11:23 Sodium 140 mmol/L (136-145) 12/08/22 11: Potassium 3.9 mmol/L (3.5-5.1) 12/08/22 11: Chloride 110 mmol/L (98-107) H 12/08/22 11:23 Carbon Dioxide 23 mmol/L (21-32) 12/08/22 11:23 Anion Gap 7 (3-11) 12/08/22 11:23 BUN 16 mg/dl (6-23) 12/08/22 11:23 Creatinine 1.06 mg/dl (0.6-1.2) 12/08/22 11: Est Cr Clr Drug Dosing Not Reportable 12/08/22 11:23 Est GFR ( Amer) 56.2 ml/min 12/08/22 11:23 Est GFR (Non-Af Amer) 48.5 ml/min 12/08/22 11:23 BUN/Creatinine Ratio 15.1 (10-20) 12/08/22 11: Glucose 106 mg/dl (70-99(Fasting)) H 12/08/22 11:23 Calcium 8.6 mg/dl (8.6-10.3) 12/08/22 11:23 SARS-CoV-2, RNA, NAAT NEGATIVE (NEGATIVE) 12/08/22 12:
[2022-12-08] MEDS ORDERED: VANCOMYCIN CONSULT ACTIVE PRN (14:39)
[2022-12-08] MEDS ORDERED: Patient's HEIGHT &/or WEIGHT Needed SCH (14:45)
[2022-12-08 14:52] LABS: C Reactive Protein 12.31 mg/dl (0-0.5)
[2022-12-08] MEDS ORDERED: PIPERACILLIN/TAZOBACTAM 4.5 GM/120 ML BAG IV STA (14:56)
[2022-12-08] MEDS ORDERED: VANCOMYCIN HCL 1,500 MG in SODIUM CHLORIDE 0.9% 500 ML IV STA (14:57)
[2022-12-08] MEDS ORDERED: PIPERACILLIN/TAZOBACTAM 4.5 GM (over 30 mins) IV ONE (15:45)
--- NOTE | 2022-12-08 16:12 | Pharmacy Report ---
Pharmacy PK ABX Note - Date of Service December 08, 2022 - Assessment and Plan Assessment 82 year old F receiving Vancomycin and Zosyn for treatment of prosthetic hip infection. * Day #1 of antimicrobial therapy. * HPI: hip fracture now s/p hemiarthroplasty in October 2022. * Labs/Vitals: Afebrile. No white count. ESR/CRP elevated. * Micro: Hip cx pending. Plan Vancomycin * Loading dose: 1500 mg IV x 1 * Maintenance dose: 1250 mg IV every 24 hours * Regimen is predicted to achieve target AUC/MAURICE of 400-600 mg/L.hr * Random level ordered for: 12/10/22 Pharmacy will continue to follow and will adjust dose/frequency as necessary. Thank you. Pharmacy has transitioned to AUC monitoring for vancomycin. AUC/MAURICE is the preferred PK/PD target and is associated with decreased risk of nephrotoxicity compared to traditional trough targets.
--- NOTE | 2022-12-08 16:32 | History & Physical Report ---
Date of Service December 08, 2022 Assessment & Plan (1) Postoperative wound infection of left hip: (2) History of hemiarthroplasty of left hip: Plan: Admit to [facility] Patient presenting from home for evaluation of drainage from left hip wound. Patient is s/p left hip bipolar hemiarthroplasty on 11/15/[address] Magana. Currently on Eliquis for DVT prophylaxis -- last dose yesterday Started on cefadroxil last week by outpatient orthopedics Ortho evaluated in the ED, recommending admission for exploratory surgery and washout ESR 38, CRP 12.3 Start empiric Vanco and Zosyn Wound culture EKG and CXR reviewed. Patient denies any acute cardiopulmonary complaints. Patient considered acceptable risk to proceed with surgery. (3) Hypertension: Plan: HCTZ and ramipril discontinued during previous admission BP currently controlled, continue current dose of atenolol (4) Anemia: Plan: hgb 9.8 (down from 10.4 on 11/17) No signs of active bleeding, likely postop acute blood loss anemia No indication for transfusion Monitor CBC (5) Hypothyroid: Plan: Continue levothyroxine DVT PROPHYLAXIS SCDs due to likely upcoming surgical procedure Patient seen in collaboration with Dr. Yates. I spent a total of 75 minutes coordinating, documenting, and providing care for this patient excluding time spent in the performance of separately billed services. This included personally reviewing all current laboratories and imaging studies, medication reconciliation, outpatient chart review, and discussion with specialists. Admission and Anticipated Discharge Date Admission Date: December 08, 2022 History of Present Illness Chief Complaint: Drainage from left hip Primary Care Provider: MURRAY Venegas 82-year-old female with PMH HTN, hypothyroidism, and other problems listed below who presents to the ED for evaluation of drainage from left hip wound. History obtained from patient at the bedside and review of recent inpatient records. Patient admitted to [facility] 11/14 through 11/17 after a mechanical fall and suffering a left hip fracture. Patient is s/p left hip bipolar hemiarthroplasty on 11/15/[address] Magana. Patient was discharged to [facility] for rehab for 1 week and has since returned home. Currently on Eliquis for DVT prophylaxis. Patient was seen in the orthopedic office last week for postop follow-up and was felt to have a postoperative incisional infection. Patient was started on cefadroxil. This morning, the proximal aspect of patient's incision opened up and started draining a large amount of yellow serous fluid. Patient was referred to the ED for further evaluation. Patient denies any pain in the hip. She denies fevers and chills. Feels as though she has been recovering well from her surgery. She denies chest pain or shortness of breath. No lightheadedness, dizziness, diaphoresis, syncopal events. No abdominal pain, nausea, vomiting, diarrhea. Denies urinary symptoms. In the ED, patient is hemodynamically stable, afebrile, no leukocytosis. Orthopedics has evaluated the patient and recommends exploratory surgery and washout. Allergies Allergy/AdvReac Type Severity Reaction Status Date / Time No Known Allergies Allergy Unverified 11/14/22 05:02 Home Medications Medication Instructions Recorded Confirmed Type acetaminophen 325 mg tablet 650 mg PO Q4H PRN fever or pain 11/17/22 12/08/22 Rx #20 tabs multivitamin with folic acid 400 1 tab PO QAM #30 tabs 11/17/22 12/08/22 Rx mcg tablet (Daily-Jong (with folic acid)) apixaban 2.5 mg tablet (Eliquis) 2.5 mg PO BID 12/08/22 12/08/22 History atenolol 25 mg tablet 12.5 mg PO QPM 12/08/22 12/08/22 History cefadroxil 500 mg capsule 500 mg PO BID 12/08/22 12/08/22 History levothyroxine 125 mcg tablet 125 mcg PO DAILYBB 12/08/22 12/08/22 History risperidone 0.25 mg tablet 0.25 mg PO QPM 12/08/22 12/08/22 History Past Med/Surg History Medical History Closed subcapital fracture of left femur Hypertension Hypothyroid Surgical History History of hemiarthroplasty of left hip Hx laparoscopic cholecystectomy Hx of hysterectomy Social History Smoking Status: Never smoker Second Hand Exposure: No; Do You Dip or Chew Tobacco: No; Hx Alcohol Use: No Hx Substance Use: No Preferred Language: Iranian Communication Ability: Effective Stationary Equipment Mechanic Required: No Beliefs That Will Affect Care: None Current Living Situation: Family Current Living Situation Comment: Lives with daughter, another daughter lives next door Feels Safe at Home: Yes Assistive Devices: Cane Review of Systems Review of Systems: ROS per HPI, all other systems reviewed and negative Physical Exam Constitutional: WD/WN, vitals as above Eyes: PERRL, conjunctivae normal, anicteric sclerae ENMT: external ear and nose normal, oropharynx normal Respiratory: normal respiratory effort, lungs clear to auscultation Cardiovascular: Rate/Rhythm: regular rate and regular rhythm Vessels: normal peripheral pulses Extremities: + edema (+1-2 edema BLE, L > R ) Gastrointestinal (Abdomen): normal bowel sounds, soft, nontender, no hepatosplenomegaly Musculoskeletal: no cyanosis or clubbing, extremities motor strength 5/5 Skin: left incision with mild surround erythema, proximal aspect opened and draining yellow serous fluid Neurologic: PERRL, EOMI, accommodation nl, no face palsy, no dysarthria Psychiatric: A+Ox3, euthymic affect Results & Data Results & Data Vital Signs (Past 12 Hours) Vital Signs Temp Pulse Pulse Resp BP BP Pulse Ox 12/08/22 15:36 36.4 C L 77 16 139/89 95 12/08/22 15:10 12/08/22 14:55 75 18 149/85 H 96 12/08/22 13:07 75 16 131/81 94 12/08/22 10:30 36.6 C 86 18 132/81 98 O2 Del Method 12/08/22 15:36 Room Air 12/08/22 15:10 Room Air 12/08/22 14:55 Room Air 12/08/22 13:07 Room Air 12/08/22 10:30 Laboratory Results Short CBC 12/08/22 Range/Units 11:23 WBC 8.26 (4.8-10.8) K/ul Hgb 9.8 L (12.0-16.0) g/dl Hct 30.3 L (37.0-47.0) % Plt Count 348 (130-400) K/uL BMP 12/08/22 11:23 Sodium 140 Potassium 3.9 Chloride 110 H Carbon Dioxide 23 BUN 16 Creatinine 1.06 Glucose 106 H Calcium 8.6 Code Status & VTE Plan Code Status Patient is a DNR as per my discussion with her. VTE Prophylaxis Plan VTE Prophylaxis will be ordered: Yes Supervising Physician Co-Signing Physician Notes I have seen and examined the patient and have discussed the case with the provider above. I agree with the assessment and plan as stated. 82 yo F presents with increased post op wound drainage. Denies pain, fevers or chills. Denies other symptoms currently. She is planned for exploration with washout after her apixaban is held long enough. Doing well overall otherwise. Physical exam unremarkable except for her vertical incision with surrounding erythema on the left. Labs and medications were reviewed. Agree with broad spectrum abx pending culture results and further exploration by surgery. DO [place]
--- NOTE | 2022-12-08 17:59 | XRay Report ---
XR chest 1V portable HISTORY: Preop. COMPARISON: Chest 11/14/2022. FINDINGS: No pneumothorax. No pleural effusions. There are low lung volumes. The heart remains mildly enlarged. There is a large hiatus hernia again noted. No new focal lung consolidations to suggest a pneumonia. No evidence for pulmonary edema. IMPRESSION: No significant change compared to the prior study. No acute process. A large hiatus hernia again note d. ACT 112: Negative or not required by law. Electronically signed by: Zaheer Brantley M.D. 12/08/2022 5:58 PM
[2022-12-08] MEDS: risperiDONE 0.5 MG TABLET PO SCH (20:40)
[2022-12-08] MEDS: ATENOLOL 25 MG TABLET PO SCH (20:40)
[2022-12-08] MEDS: PIPERACILLIN/TAZOBACTAM 4.5 GM in DEXTROSE 5% 100 ML IV SCH (22:01)
[2022-12-08] MEDS: ACETAMINOPHEN 325 MG TAB PO PRN (23:02)
[2022-12-09] MEDS: LEVOTHYROXINE SODIUM 125 MCG TABLET PO SCH (05:53)
[2022-12-09] MEDS: PIPERACILLIN/TAZOBACTAM 4.5 GM in DEXTROSE 5% 100 ML IV SCH ×3 (05:55→21:03)
[2022-12-09 07:54] LABS: Hematocrit (blood only) 26.7 % (37.0-47.0); Hemoglobin 8.7 g/dl (12.0-16.0); Mean Corpuscular Hemoglobin 29.9 pg (25.0-34.0); Mean Corpuscular Hgb Conc 32.6 g/dL (32.0-36.0); Mean Corpuscular Volume 91.8 fL (80.0-100.0); Mean Platelet Volume 9.1 fL (9.4-12.4); Platelet Count 321 K/uL (130-400); RDW Coefficient of Variation 14.8 % (11.5-14.5); RDW Standard Deviation 49.5 fL (36.4-46.3); Red Blood Count 2.91 M/uL (4.20-5.40); White Blood Count 5.41 K/ul (4.8-10.8)
[2022-12-09 08:12] LABS: Calcium 8.4 mg/dl (8.6-10.3); Est GFR (African American) 49.9 ml/min; Est GFR (Non-African American) 43.1 ml/min; Potassium 4.1 mmol/L (3.5-5.1)
--- NOTE | 2022-12-09 09:13 | Orthopedic Progress Note ---
Date of Service December 09, 2022 Assessment & Plan (1) History of hemiarthroplasty of left hip: Plan: -S/p left bipolar hemiarthroplasty with Dr. Magana 11/09/22 -Concern for drainage from surgical wound - There is some mild erythema and induration surrounding the area but the drainage from the small area of dehiscence at the proximal aspect appears to be serous at this time without gross purulence. Patient continues to deny pain. She has remained afebrile, additional vital signs stable -Planning for left hip exploration with I&D tomorrow with Dr. Chapman -NPO at midnight -Continue IV antibiotics per primary pending intra-operative cultures -Continue to hold Eliquis. TEDs/SCDs for DVT ppx -Continue additional home medications and pain control per primary Admission and Anticipated Discharge Date Admission Date: December 08, 2022 Subjective Patient did well overnight. She is currently sitting up at the edge of the bed after using her walker to ambulate to the bathroom. She does note having a continued small amount of seepage from her hip wound but denies having any pain related to this. She has remained afebrile, denies having any lightheadedness/dizziness, chest pain, shortness of breath, abdominal pain, nausea, vomiting or any other acute complaints or concerns. Review of Systems Review of Systems: All systems were reviewed and were negative unless otherwise stated in note as above Physical Exam Constitutional: Sitting up at the edge of the bed, no acute distress Musculoskeletal: Left lower extremity: Incision site over the left hip healing well with mild residual erythema surrounding the area. There is ~1 cm area at the proximal aspect of the wound that is slightly dehisced with yellow fibrous tissue between the skin edges with a scant amount of serous yellow drainage. Unable to express additional fluid with pressure. No gross purulence or odor. Residual edema surrounding the area which is firm to palpation but not tender. Thigh mildly edematous but compartments remain soft and compressible. No additional tenderness to palpation about the lower extremity. Continues with good range of motion of the hip, knee and ankle without significant pain or difficulty. Sensation and d/p pulse intact Skin: Warm and well perfused Neurologic: Awake, alert and oriented x 3. Interacting and answering questions appropriately Results & Data Vital Signs (Past 12 Hours) Vital Signs Temp Pulse Resp BP Pulse Ox O2 Del Method 12/09/22 07:52 104/65 12/09/22 07:16 36.5 C 67 16 91/56 L 95 Room Air Laboratory Results Laboratory Tests 12/09/22 12/09/22 07:13 07:13 WBC 5.41 RBC 2.91 L Hgb 8.7 L Hct 26.7 L Sodium 141 Potassium 4.1 Chloride 112 H Carbon Dioxide 24 BUN 14 Creatinine 1.17
[2022-12-09] MEDS ORDERED: SODIUM CHLORIDE 0.9% 250 ML IV PRN (11:29)
--- NOTE | 2022-12-09 11:29 | Anesthesiology Consultation ---
Date of Service December 09, 2022 Assessment & Plan Chart Review Chart Review: Acceptable Risk for Surgery and Patient NOT seen in Pre Admission Testing Consults Requested none ASA ASA4 Proposed Anesthesia Anesthesia Type: General History Surgery Operation Date: 12/10/22 07:30 Proposed Procedures p Left Hip Incision and Drainage - José Miguel Chapman DO s Left Femoral Head Exchange - José Miguel Chapman DO Height/Weight Height: 5 ft 5 in Weight: 71.2 kg Allergies Allergy/AdvReac Type Severity Reaction Status Date / Time No Known Allergies Allergy Unverified 11/14/22 05:02 Medications Home Medications Medication Instructions Recorded Confirmed Last Taken acetaminophen 325 mg tablet 650 mg PO Q4H PRN fever or pain 11/17/22 12/08/22 Unknown #20 tabs multivitamin with folic acid 400 1 tab PO QAM #30 tabs 11/17/22 12/08/22 12/08/22 mcg tablet (Daily-Jong (with folic acid)) apixaban 2.5 mg tablet (Eliquis) 2.5 mg PO BID 12/08/22 12/08/22 12/08/22 atenolol 25 mg tablet 12.5 mg PO QPM 12/08/22 12/08/22 12/07/22 cefadroxil 500 mg capsule 500 mg PO BID 12/08/22 12/08/22 12/08/22 08:00 levothyroxine 125 mcg tablet 125 mcg PO DAILYBB 12/08/22 12/08/22 12/08/22 risperidone 0.25 mg tablet 0.25 mg PO QPM 12/08/22 12/08/22 12/07/22 Active Medications Generic Name Dose Route Start Last Admin Trade Name Freq PRN Reason Stop Dose Admin Acetaminophen 650 mg 12/08/22 15:26 12/08/22 23:02 Acetaminophen 325 Mg Tab PO 01/07/23 15:25 650 mg Q4H PRN Administration pain/fever Atenolol 12.5 mg 12/08/22 21:00 12/08/22 20:40 Atenolol 25 Mg Tablet PO 01/07/23 20:59 12.5 mg QPM NATHAN Administration Piperacillin Sod/Tazobactam 120 mls @ 30 mls/hr 12/08/22 22:00 12/09/22 09:36 Sod 4.5 gm/ Dextrose IV 12/15/22 21:59 Infused Q8H NATHAN Infusion Protocol Levothyroxine Sodium 125 mcg 12/09/22 06:30 12/09/22 05:53 Levothyroxine Sodium 125 Mcg Tablet PO 01/08/23 06:29 125 mcg DAILYBB NATHAN Administration Risperidone 0.25 mg 12/08/22 21:00 12/08/22 20:40 Risperidone 0.5 Mg Tablet PO 01/07/23 20:59 0.25 mg QPM NATHAN Administration Past Medical History Medical History Closed subcapital fracture of left femur Hypertension Hypothyroid Exercise / Class Metabolic Activity III < 4 Walking/Shop/Light housework Past Surgical History Surgical History History of hemiarthroplasty of left hip Hx laparoscopic cholecystectomy Hx of hysterectomy Past Anesthesia History No Hx of Anesthesia Complications and No Family Hx of Anesthesia Complications History of PONV No Hx of PONV and No Hx of Motion Sickness Social History Smoking Status: Never smoker Do You Dip or Chew Tobacco: No Hx Alcohol Use: No Hx Substance Use: No substance use type: does not use Physical Exam Vital Signs Last Vital Signs Temp 36.5 C 12/09/22 07:16 Pulse 67 12/09/22 07:16 Resp 16 12/09/22 07:16 BP 104/65 12/09/22 07:52 Pulse Ox 95 12/09/22 07:16 O2 Del Method Room Air 12/09/22 07:16 Testing Laboratory Results 12/09/22 07:13 12/09/22 07:13 12/08/22 14:26 Gram Stain - Final Hip,Left Electrocardiogram Date: 12/08/22 Findings: + NSR @ (@ 72;RAD) Chest X-Ray Date: 12/08/22 Findings: + NAD and + other (large H/H)
--- NOTE | 2022-12-09 12:03 | Hospitalist Progress Note ---
Date of Service December 09, 2022 Assessment & Plan (1) Postoperative wound infection of left hip: Plan: Patient presenting from home for evaluation of drainage from left hip wound. Patient is s/p left hip bipolar hemiarthroplasty on 11/15/[address] Magana. Currently on Eliquis for DVT prophylaxis -- last dose yesterday Started on cefadroxil last week by outpatient orthopedics Ortho evaluated in the ED, recommending admission for exploratory surgery and washout ESR 38, CRP 12.3 Start empiric Vanco and Zosyn Wound culture-pending for now Appreciate Ortho input and recommendation for I&D tomorrow Eliquis is on hold (2) History of hemiarthroplasty of left hip: Plan: EKG and CXR reviewed. Patient denies any acute cardiopulmonary complaints. Patient considered acceptable risk to proceed with surgery. (3) Hypertension: Plan: HCTZ and ramipril discontinued during previous admission BP currently controlled, continue current dose of atenolol (4) Anemia: Plan: hgb 9.8 (down from 10.4 on 11/17) No signs of active bleeding, likely postop acute blood loss anemia No indication for transfusion Monitor CBC-hemoglobin is 8.7 and will monitor (5) Hypothyroid: Plan: Continue levothyroxine DVT PROPHYLAXIS SCDs due to likely upcoming surgical procedure Admission and Anticipated Discharge Date Admission Date: December 08, 2022 Subjective 12/09/2022 The patient was seen and examined in medical floor She has had left bipolar hemiarthroplasty on 11/09/2022 and has been oozing from the wound She denies any other symptoms of chest pain, palpitation or shortness of breath Does have swelling of the left lower extremity She will have surgery tomorrow Review of Systems Review of Systems: All systems reviewed and are unremarkable except as noted below Physical Exam Physical Exam: Lying in bed comfortably Constitutional: well developed, well nourished, + ill appearing and average body habitus Eyes: PERRL, conjunctivae normal, anicteric sclerae ENMT: external ear and nose normal, oropharynx normal Neck: trachea midline, no thyromegaly Respiratory: no respiratory distress Auscultation: lungs clear to auscultation bilaterally Cardiovascular: Rate/Rhythm: regular rate and regular rhythm; not tachycardic Heart Sounds: normal S1, normal S2 and + murmur Extremities: + edema (1+ edema on the right and 2+ on the left) Gastrointestinal (Abdomen): Inspection/Auscultation: normal bowel sounds; abdomen not distended Percussion/Palpation: abdomen soft; abdomen nontender Musculoskeletal: Status post left hip surgery. Moderate pain with movement of the left lower extremity. Swelling of the left lower extremity Neurologic: normal touch/pain/proprioception Psychiatric: A+Ox3, euthymic affect Lymphatic: no cervical or axillary lymphadenopathy Results & Data Results & Data Vital Signs (Past 12 Hours) Vital Signs Temp Pulse Resp BP Pulse Ox O2 Del Method 12/09/22 07:52 104/65 12/09/22 07:16 36.5 C 67 16 91/56 L 95 Room Air Laboratory Results Short CBC 12/09/22 Range/Units 07:13 WBC 5.41 (4.8-10.8) K/ul Hgb 8.7 L (12.0-16.0) g/dl Hct 26.7 L (37.0-47.0) % Plt Count 321 (130-400) K/uL BMP 12/09/22 07:13 Sodium 141 Potassium 4.1 Chloride 112 H Carbon Dioxide 24 BUN 14 Creatinine 1.17 Glucose 83 Calcium 8.4 L Medications Administered Current Inpatient Medications Acetaminophen (Acetaminophen 325 Mg Tab) 650 mg PO Q4H PRN PRN Reason: pain/fever Stop: 01/07/23 15:25 Last Admin: 12/08/22 23:02 Dose: 650 mg Atenolol (Atenolol 25 Mg Tablet) 12.5 mg PO QPM NATHAN Stop: 01/07/23 20:59 Last Admin: 12/08/22 20:40 Dose: 12.5 mg Piperacillin Sod/Tazobactam (Sod 4.5 gm/ Dextrose) 120 mls @ 30 mls/hr IV Q8H NATHAN; Protocol Stop: 12/15/22 21:59 Last Infusion: 12/09/22 09:36 Dose: Infused Vancomycin HCl 1,250 mg/ (Sodium Chloride) 275 mls @ 200 mls/hr IV Q24H NATHAN; Protocol Stop: 12/16/22 15:59 Sodium Chloride (Nss) 250 mls @ 15 mls/hr IV .[id number] PRN PRN Reason: For Transfusion Duration Stop: 12/09/22 21:29 Levothyroxine Sodium (Levothyroxine Sodium 125 Mcg Tablet) 125 mcg PO DAILYBB [facility] Stop: 01/08/23 06:29 Last Admin: 12/09/22 05:53 Dose: 125 mcg Miscellaneous Information (Vancomycin Consult Active) 1 each N/A UD PRN PRN Reason: Consult Stop: 01/07/23 14:38 Risperidone (Risperidone 0.5 Mg Tablet) 0.25 mg PO QPM [facility] Stop: 01/07/23 20:59 Last Admin: 12/08/22 20:40 Dose: 0.25 mg
[2022-12-09] MEDS ORDERED: VANCOMYCIN HCL 1,250 MG in SODIUM CHLORIDE 0.9% 250 ML IV SCH (16:00)
[2022-12-09] MEDS: ACETAMINOPHEN 325 MG TAB PO PRN (21:02)
[2022-12-09] MEDS: ATENOLOL 25 MG TABLET PO SCH (21:02)
[2022-12-09] MEDS: risperiDONE 0.5 MG TABLET PO SCH (21:03)
[2022-12-10] MEDS: LEVOTHYROXINE SODIUM 125 MCG TABLET PO SCH (05:34)
[2022-12-10] MEDS: PIPERACILLIN/TAZOBACTAM 4.5 GM in DEXTROSE 5% 100 ML IV SCH ×3 (05:34→21:09)
[2022-12-10 06:07] LABS: Basophils # (auto) 0.04 K/uL (0-0.2); Basophils % (auto) 0.6 %; Eosinophils # (auto) 0.35 K/uL (0-0.50); Eosinophils % (auto) 5.5 %; Hematocrit (blood only) 26.4 % (37.0-47.0); Hemoglobin 8.5 g/dl (12.0-16.0); Immature Granulocytes # (auto) 0.09 K/uL (0.01-0.20); Immature Granulocytes % (auto) 1.4 %; Lymphocytes # (auto) 0.72 K/uL (1.2-3.4); Lymphocytes % (auto) 11.4 %; Mean Corpuscular Hgb Conc 32.2 g/dL (32.0-36.0); Mean Corpuscular Volume 90.1 fL (80.0-100.0); Mean Platelet Volume 8.9 fL (9.4-12.4); Monocytes # (auto) 0.63 K/uL (0.11-0.59); Neutrophils # (auto) 4.49 K/uL (1.40-6.50); Neutrophils % (auto) 71.1 %; Platelet Count 326 K/uL (130-400); RDW Coefficient of Variation 14.6 % (11.5-14.5); RDW Standard Deviation 48.3 fL (36.4-46.3); Red Blood Count 2.93 M/uL (4.20-5.40); White Blood Count 6.32 K/ul (4.8-10.8)
[2022-12-10 06:09] LABS: BUN Creatinine Ratio 13.5 (10-20); Calcium 8.1 mg/dl (8.6-10.3); Creatinine Clr Calc Pharmacy 28.5 ml/min; Est GFR (African American) 37.6 ml/min; Est GFR (Non-African American) 32.4 ml/min; Potassium 4.1 mmol/L (3.5-5.1)
[2022-12-10] MEDS ORDERED: fentaNYL citrate PF 100 MCG/2 ML VIAL ONE ×2 (07:22→10:02)
--- NOTE | 2022-12-10 07:52 | History & Physical Bridge Note ---
Date of Service December 10, 2022 History & Physical Bridge Note I have examined the patient, reviewed the History & Physical and in the interval since the performance of the History & Physical I have noted the following changes of clinical significance: no changes noted. Met with the patient we had a lengthy discussion regarding risk benefits potential complications of left hip irrigation and debridement with femoral head exchange. These include but are not limited to infection, neurovascular injury, DVT and need for future surgery. After reviewing these she elected to proceed with surgical intervention and written consent was obtained.
[2022-12-10] MEDS ORDERED: GLYCOPYRROLATE 0.2 MG/ML VIAL ONE (08:32)
[2022-12-10] MEDS ORDERED: ONDANSETRON INJ 2 MG/ML 2 ML VIAL ONE (08:32)
[2022-12-10] MEDS ORDERED: NEOSTIGMINE METHYLSULFATE 1 MG/ML 10ML VIAL ONE (08:32)
--- NOTE | 2022-12-10 09:31 | Post Operative Brief Note ---
Immediate Post Op Note v1 Date of Surgery December 10, 2022 Pre & Post Diagnosis Operation Date: 12/10/22 07:30 Pre-Op Diagnosis: Left hip wound infection Post-Op Diagnosis: Left hip wound infection I identified the patient and participated in the time-out.: Yes Procedure Operation Date: 12/10/22 07:30 Actual Procedures p Left Hip Incision and Drainage(Left) - José Miguel Chapman DO s Left Femoral Head Exchange(Left) - José Miguel Chapman DO Surgeon José Miguel Chapman DO Diamond Powder Mixer none Estimated Blood Loss 100 Findings Consistent with Post-Op Diagnosis See dictation Drains Hemovac Drain Complications none
[2022-12-10] MEDS ORDERED: NALOXONE HCL 0.4 MG/1 ML VIAL/CARP IV PRN ×2 (09:37→09:46)
--- NOTE | 2022-12-10 09:37 | Operative Report ---
Post Operative Report Pre & Post Diagnosis Operation Date: 12/10/22 07:30 Pre-Op Diagnosis: Left hip wound infection Post-Op Diagnosis: Left hip wound infection I identified the patient and participated in the time-out.: Yes Procedure Operation Date: 12/10/22 07:30 Actual Procedures p Left Hip Incision and Drainage(Left) - José Miguel Chapman DO s Left Femoral Head Exchange(Left) - José Miguel Chapman DO Surgeon José Miguel Chapman DO Chemical Process Analyst none Estimated Blood Loss 100 Findings Consistent with Post-Op Diagnosis See dictation Specimens Wound cultures Drains Deep Hemovac Complications None Indications 82-year-old female who had underwent a left hip hemiarthroplasty several weeks ago who presented to the office with a draining right hip wound. She was sent to the hospital and admitted under medical service for planned surgical intervention. I met with the patient preoperatively and we had a lengthy discussion regarding risk benefits potential complications of left hip irrigation and debridement with exchange of bipolar head component. These include but are not limited to infection, neurovascular injury, DVT, and need for future surgery. After reviewing these she elected proceed with surgical intervention and written consent was obtained. Description of Procedure Implants: Mika L FIT V40 femoral head 26 mm outside diameter +0 mm offset, universal head bipolar component 48 mm outside diameter with 26 mm inside diameter Procedure: Patient was appropriate identified in the preoperative holding area and the left lower extremity was marked. She was taken back to the operative suite where she received general anesthesia. Vancomycin and Zosyn were continued. The patient was positioned in the lateral decubitus position using Stolberg hip positioners. She was then prepped and draped in the standard orthopedic fashion. Timeout was then performed. Incision was made in line with the previous lateral incision. Immediately when going through the subcutaneous tissue there was a large amount of seroma that was encountered. Seroma did track down through the IT band into the deep joint space. Hip was debrided of all nonviable tissue using a Recinos and a rongeur. Previous Villagomez approach was carried out down to the acetabulum. Charnley retractor was placed the hip was then successfully dislocated. A saddle impactor was used to remove the bipolar head component from the femoral trunnion. The wound was then copiously scrubbed using dilute Betadine solution with a scrub brush. The wound was then copiously irrigated with 6 L of normal saline solution. At this point the trunnion was then dried and a 48 mm outside diameter head with +0 mm offset was impacted back onto the trunnion. The hip was successfully relocated. Leg lengths and stability were all assessed and noted to be satisfactory. Wound was once again irrigated with dilute Betadine solution followed by normal saline solution. The gluteus medius was then repaired using 0 PDS suture in an interrupted fashion. Vastus was then repaired using 0 PDS suture. Abductors were then also repaired using 0 PDS suture in interrupted fashion. Charnley retractor was then removed. A deep Hemovac was then inserted. The IT band was then closed in a [id number] fashion using 0 PDS suture in interrupted fashion followed by running oh looped PDS suture. Subcutaneous tissues were then copiously irrigated and closed using running 2-0 strata fix suture. Jo were then used to close the skin. 3-0 nylon was used to sew in the Hemovac. A sterile Silverlon dressing was then placed. The patient tolerated the procedure well and was taken the recovery room in hemodynamically stable condition. I attest to the content of the Intraoperative Record and any orders documented therein. Any exceptions are noted below.
[2022-12-10] MEDS ORDERED: FLUMAZENIL 0.1 MG/1 ML 10 ML VIAL IV PRN (09:46)
[2022-12-10] MEDS ORDERED: PROMETHAZINE HCL 12.5 MG in SODIUM CHLORIDE 0.9% 50 ML IV PRN (09:46)
[2022-12-10] MEDS ORDERED: ePHEDrine sulfate 50 MG/ML AMP IV PRN (09:46)
[2022-12-10] MEDS ORDERED: ONDANSETRON INJ 2 MG/ML 2 ML VIAL IV PRN (09:46)
[2022-12-10] MEDS ORDERED: ATROPINE SULFATE 0.1 MG/ML 10ML SYR IV PRN (09:46)
[2022-12-10] MEDS: fentaNYL citrate PF 100 MCG/2 ML VIAL IV PRN ×2 (10:03→10:08)
--- NOTE | 2022-12-10 10:52 | Anesthesiology Progress Note ---
Date of Service December 10, 2022 Anesthesia Post Procedure Vital Signs Vital Signs: Temp Pulse Pulse Pulse Resp BP Pulse Ox 12/10/22 10:50 53 L 12 114/63 100 12/10/22 10:40 36.3 C L 43 L 16 98/57 L 100 12/10/22 10:30 55 L 18 108/58 L 98 12/10/22 10:20 41 L 12 100/52 L 98 12/10/22 10:10 53 L 13 97/58 L 96 12/10/22 10:00 53 L 20 100/61 99 12/10/22 09:50 52 L 18 97/63 L 99 12/10/22 09:40 36.0 C L 56 L 20 95/57 L 99 12/10/22 07:00 36.6 C 71 16 119/74 95 12/09/22 21:11 36.7 C 80 16 126/81 97 12/09/22 15:34 36.6 C 78 18 103/67 96 O2 Del Method O2 Flow Rate 12/10/22 10:50 Nasal Cannula 2 12/10/22 10:40 Nasal Cannula 2 12/10/22 10:30 Nasal Cannula 2 12/10/22 10:20 Room Air 12/10/22 10:10 Room Air 12/10/22 10:00 Oxymask 4 12/10/22 09:50 Oxymask 4 12/10/22 09:40 Oxymask 6 12/10/22 07:00 Room Air 12/09/22 21:11 Room Air 12/09/22 15:34 Room Air Pain Intensity Left Thigh: Pain Intensity: 3 Transfer of Care Handoff Completed per policy Notes Mental Status: alert / awake / arousable Patient Amnestic to Procedure: Yes Nausea / Vomiting: adequately controlled Pain: adequately controlled Airway Patency, RR, SpO2: stable & adequate BP & HR: stable & adequate Hydration State: stable & adequate Anesthetic Complications: no major complications apparent
--- NOTE | 2022-12-10 10:52 | Communication Note ---
Date of Service: December 10, 2022 At 1045, 0.2 mg glycopyrrolate given for HR high 30's- low 40's. Hr now in 50's. VSS stable. Pt ready for discharge.
[2022-12-10] MEDS: SODIUM CHLORIDE 0.9% 1000ML 1,000 ML IV SCH ×2 (11:33→23:19)
--- NOTE | 2022-12-10 12:18 | Pharmacy Report ---
Pharmacy PK ABX Note - Date of Service December 10, 2022 - Assessment and Plan Assessment 12/10: Hip culture growing MRSA. SCr is trending upward (although on par with SCr in October). Random level this AM predicts supratherapeutic AUC at steady state. Will reduce dose today and get another random level in AM to monitor. 12/08: 82 year old F receiving Vancomycin and Zosyn for treatment of prosthetic hip infection. * Day #1 of antimicrobial therapy. * HPI: hip fracture now s/p hemiarthroplasty in October 2022. * Labs/Vitals: Afebrile. No white count. ESR/CRP elevated. * Micro: Hip cx pending. Plan 12/10: Adjust maintenance dose to 1000 mg IV every 24 hours Regimen is predicted to achieve target AUC/MAURICE of 400-600 mg/L.hr Random level is ordered for tomorrow AM 12/08: Vancomycin * Loading dose: 1500 mg IV x 1 * Maintenance dose: 1250 mg IV every 24 hours * Regimen is predicted to achieve target AUC/MAURICE of 400-600 mg/L.hr * Random level ordered for: 12/10/22 Pharmacy will continue to follow and will adjust dose/frequency as necessary. Thank you. Pharmacy has transitioned to AUC monitoring for vancomycin. AUC/MAURICE is the preferred PK/PD target and is associated with decreased risk of nephrotoxicity compared to traditional trough targets.
[2022-12-10] MEDS: VANCOMYCIN HCL 1,000 MG in SODIUM CHLORIDE 0.9% 250 ML IV SCH (13:00)
--- NOTE | 2022-12-10 13:57 | Hospitalist Progress Note ---
Date of Service December 10, 2022 Assessment & Plan (1) Postoperative wound infection of left hip: Plan: Patient presenting from home for evaluation of drainage from left hip wound. Patient is s/p left hip bipolar hemiarthroplasty on 11/15/[address] Magana. Currently on Eliquis for DVT prophylaxis -- last dose yesterday Started on cefadroxil last week by outpatient orthopedics Ortho evaluated in the ED, recommending admission for exploratory surgery and washout ESR 38, CRP 12.3 Start empiric Vanco and Zosyn Wound culture-pending for now Appreciate Ortho input and recommendation for I&D tomorrow Eliquis is on hold Status post left hip incision and drainage and Left femoral head exchange POD #0 Management will be as per Ortho Gram stain from the wound is growing MRSA-willing to continue vancomycin We will continue current antibiotic Further cultures have been taken today (2) History of hemiarthroplasty of left hip: Plan: EKG and CXR reviewed. Patient denies any acute cardiopulmonary complaints. Patient considered acceptable risk to proceed with surgery. (3) Hypertension: Plan: HCTZ and ramipril discontinued during previous admission BP currently controlled, continue current dose of atenolol (4) Anemia: Plan: hgb 9.8 (down from 10.4 on 11/17) No signs of active bleeding, likely postop acute blood loss anemia No indication for transfusion Monitor CBC-hemoglobin is 8.7 and will monitor Hemoglobin remains stable at 8.5 as of 12/10/2022 (5) Hypothyroid: Plan: Continue levothyroxine DVT PROPHYLAXIS SCDs due to likely upcoming surgical procedure Admission and Anticipated Discharge Date Admission Date: December 08, 2022 Subjective 12/09/2022 The patient was seen and examined in medical floor She has had left bipolar hemiarthroplasty on 11/09/2022 and has been oozing from the wound She denies any other symptoms of chest pain, palpitation or shortness of breath Does have swelling of the left lower extremity She will have surgery tomorrow 12/10/2022 The patient was seen and examined in medical floor She is a status post left hip incision and drainage and left femoral head exchange Has been complaining of cold and shivering and temperature has been noted to be low at 35.8 C Denies any other significant symptoms Review of Systems Review of Systems: All systems reviewed and are unremarkable except as noted below Physical Exam Physical Exam: Lying in bed comfortably and is shivering Constitutional: well developed, well nourished, + ill appearing and average body habitus Eyes: PERRL, conjunctivae normal, anicteric sclerae ENMT: external ear and nose normal, oropharynx normal Neck: trachea midline, no thyromegaly Respiratory: no respiratory distress Auscultation: lungs clear to auscultation bilaterally Cardiovascular: Rate/Rhythm: regular rate and regular rhythm; not tachycardic Heart Sounds: normal S1, normal S2 and + murmur Extremities: + edema (1+ edema on the right and 2+ on the left) Gastrointestinal (Abdomen): Inspection/Auscultation: normal bowel sounds; abdomen not distended Percussion/Palpation: abdomen soft; abdomen nontender Musculoskeletal: No acute arthritis but has pain in the left hip with movement of the left lower extremity Neurologic: normal touch/pain/proprioception Psychiatric: A+Ox3, euthymic affect Lymphatic: no cervical or axillary lymphadenopathy Results & Data Results & Data Vital Signs (Past 12 Hours) Vital Signs Temp Pulse Pulse Resp BP Pulse Ox O2 Del Method 12/10/22 13:09 35.8 C L 64 12 109/66 99 Nasal Cannula 12/10/22 12:30 35.8 C L 62 12 113/65 100 Nasal Cannula 12/10/22 11:50 36.3 C L 52 L 16 111/69 100 Nasal Cannula 12/10/22 11:28 36.2 C L 64 12 112/58 L 100 Nasal Cannula 12/10/22 11:10 54 L 12 111/62 100 Nasal Cannula 12/10/22 11:00 59 L 12 104/64 100 Nasal Cannula 12/10/22 10:50 53 L 12 114/63 100 Nasal Cannula 12/10/22 10:40 36.3 C L 43 L 16 98/57 L 100 Nasal Cannula 12/10/22 10:30 55 L 18 108/58 L 98 Nasal Cannula 12/10/22 10:20 41 L 12 100/52 L 98 Room Air 12/10/22 10:10 53 L 13 97/58 L 96 Room Air 12/10/22 10:00 53 L 20 100/61 99 Oxymask 12/10/22 09:50 52 L 18 97/63 L 99 Oxymask 12/10/22 09:40 36.0 C L 56 L 20 95/57 L 99 Oxymask 12/10/22 07:00 36.6 C 71 16 119/74 95 Room Air O2 Flow Rate FiO2 12/10/22 13:09 2 12/10/22 12:30 2 12/10/22 11:50 2 12/10/22 11:28 2 12/10/22 11:10 2 12/10/22 11:00 2 12/10/22 10:50 2 12/10/22 10:40 2 12/10/22 10:30 2 12/10/22 10:20 12/10/22 10:10 12/10/22 10:00 4 12/10/22 09:50 4 12/10/22 09:40 6 12/10/22 07:00 Laboratory Results Short CBC 12/10/22 Range/Units 05:17 WBC 6.32 (4.8-10.8) K/ul Hgb 8.5 L (12.0-16.0) g/dl Hct 26.4 L (37.0-47.0) % Plt Count 326 (130-400) K/uL BMP 12/10/22 05:17 Sodium 141 Potassium 4.1 Chloride 113 H Carbon Dioxide 23 BUN 20 Creatinine 1.48 H D Glucose 83 Calcium 8.1 L Medications Administered Current Inpatient Medications Acetaminophen (Acetaminophen 325 Mg Tab) 650 mg PO Q4H PRN PRN Reason: pain/fever Stop: 01/07/23 15:25 Last Admin: 12/09/22 21:02 Dose: 650 mg Atenolol (Atenolol 25 Mg Tablet) 12.5 mg PO QPM NATHAN Stop: 01/07/23 20:59 Last Admin: 12/09/22 21:02 Dose: 12.5 mg Atropine Sulfate (Atropine Sulfate 0.1 Mg/Ml 10ml Syr) 0.5 mg IV Q1M PRN PRN Reason: PACU Use-HR<40 &/or Bradycardi Stop: 12/10/22 17:46 Ephedrine Sulfate (Ephedrine Sulfate 50 Mg/Ml Amp) 5 mg IV Q5M PRN PRN Reason: PACU Use Only-SBP<90 mmHg Stop: 12/10/22 17:46 Fentanyl Citrate (Fentanyl Citrate Pf 100 Mcg/2 Ml Vial) 25 mcg IV Q5M PRN PRN Reason: PACU Use Only-Pain Stop: 12/10/22 17:46 Last Admin: 12/10/22 10:08 Dose: 25 mcg Flumazenil (Flumazenil 0.1 Mg/1 Ml 10 Ml Vial) 0.2 mg IV Q2M PRN PRN Reason: PACU Use Only-Benzo Reversal Stop: 12/10/22 17:46 Piperacillin Sod/Tazobactam (Sod 4.5 gm/ Dextrose) 120 mls @ 30 mls/hr IV Q8H [facility]; Protocol Stop: 12/15/22 21:59 Last Admin: 12/10/22 13:00 Dose: 30 mls/hr Sodium Chloride (Nss 1000ml) 1,000 mls @ 100 mls/hr IV .Q10H [facility] Stop: 12/11/22 06:00 Last Admin: 12/10/22 11:33 Dose: 100 mls/hr Promethazine HCl 12.5 mg/ (Sodium Chloride) 50.5 mls @ 204 mls/hr IV ONCE PRN PRN Reason: PACU Use Only-Nausea/Vomiting Stop: 12/10/22 17:46 Vancomycin HCl 1,000 mg/ (Sodium Chloride) 270 mls @ 200 mls/hr IV Q24H [facility]; Protocol Stop: 12/16/22 13:59 Last Admin: 12/10/22 13:00 Dose: 200 mls/hr Levothyroxine Sodium (Levothyroxine Sodium 125 Mcg Tablet) 125 mcg PO DAILYBB [facility]ATHAN Stop: 01/08/23 06:29 Last Admin: 12/10/22 05:34 Dose: 125 mcg Miscellaneous Information (Vancomycin Consult Active) 1 each N/A UD PRN PRN Reason: Consult Stop: 01/07/23 14:38 Naloxone HCl (Naloxone Hcl 0.4 Mg/1 Ml Vial/Carp) 0.1 mg IV Q5M PRN PRN Reason: Oversedation/Resp Depression Stop: 01/09/23 09:36 Naloxone HCl (Naloxone Hcl 0.4 Mg/1 Ml Vial/Carp) 0.2 mg IV Q2M PRN PRN Reason: PACU Use Only-Opiate Reversal Stop: 12/10/22 17:46 Ondansetron HCl (Ondansetron Inj 2 Mg/Ml 2 Ml Vial) 4 mg IV ONCE PRN PRN Reason: PACU Use Only-Nausea/Vomiting Stop: 12/10/22 17:46 Risperidone (Risperidone 0.5 Mg Tablet) 0.25 mg PO QPM [facility] Stop: 01/07/23 20:59 Last Admin: 12/09/22 21:03 Dose: 0.25 mg
[2022-12-10] MEDS: ACETAMINOPHEN 325 MG TAB PO PRN ×2 (14:54→21:12)
[2022-12-10] MEDS ORDERED: MoRPHine SULFATE 2 MG/ML CARP IV PRN (15:46)
--- NOTE | 2022-12-10 19:57 | Electrocardiogram Report ---
Test Reason : Blood Pressure : / mmHG Vent. Rate : 072 BPM Atrial Rate : 072 BPM P-R Int : 160 ms QRS Dur : 086 ms QT Int : 406 ms P-R-T Axes : 081 090 075 degrees QTc Int : 444 ms Normal sinus rhythm Rightward axis Borderline ECG When compared with ECG of 14-NOV-2022 02:16, No significant change was found Confirmed by Chester Lee ([id number]) on 12/10/2022 7:56:34 PM Referred By: REFERRED SELF Confirmed By:Chester Lee
[2022-12-10] MEDS: risperiDONE 0.5 MG TABLET PO SCH (20:40)
[2022-12-10] MEDS: ATENOLOL 25 MG TABLET PO SCH (20:45)
[2022-12-10] MEDS ORDERED: Nursing to Pharmacy Communication SCH (23:30)
[2022-12-11] MEDS: ACETAMINOPHEN 325 MG TAB PO PRN ×4 (01:47→20:53)
[2022-12-11] MEDS: PIPERACILLIN/TAZOBACTAM 4.5 GM in DEXTROSE 5% 100 ML IV SCH ×3 (05:15→21:00)
[2022-12-11] MEDS: LEVOTHYROXINE SODIUM 125 MCG TABLET PO SCH (05:31)
[2022-12-11] MEDS: SODIUM CHLORIDE 0.9% 1000ML 1,000 ML IV SCH (06:03)
[2022-12-11 06:18] LABS: BUN Creatinine Ratio 11.2 (10-20); Calcium 8.4 mg/dl (8.6-10.3); Creatinine Clr Calc Pharmacy 33.7 ml/min; Est GFR (African American) 46.1 ml/min; Est GFR (Non-African American) 39.7 ml/min; Potassium 3.8 mmol/L (3.5-5.1)
[2022-12-11 06:19] LABS: Basophils # (auto) 0.05 K/uL (0-0.2); Basophils % (auto) 0.6 %; Eosinophils # (auto) 0.15 K/uL (0-0.50); Eosinophils % (auto) 1.8 %; Hematocrit (blood only) 27.4 % (37.0-47.0); Hemoglobin 8.6 g/dl (12.0-16.0); Immature Granulocytes # (auto) 0.08 K/uL (0.01-0.20); Lymphocytes # (auto) 0.69 K/uL (1.2-3.4); Lymphocytes % (auto) 8.4 %; Mean Corpuscular Hgb Conc 31.4 g/dL (32.0-36.0); Mean Corpuscular Volume 92.3 fL (80.0-100.0); Mean Platelet Volume 8.9 fL (9.4-12.4); Monocytes % (auto) 8.6 %; Neutrophils % (auto) 79.6 %; Platelet Count 326 K/uL (130-400); RDW Coefficient of Variation 14.7 % (11.5-14.5); RDW Standard Deviation 49.7 fL (36.4-46.3); Red Blood Count 2.97 M/uL (4.20-5.40); White Blood Count 8.17 K/ul (4.8-10.8)
--- NOTE | 2022-12-11 06:52 | Orthopedic Progress Note ---
Date of Service December 11, 2022 Assessment & Plan (1) Postoperative wound infection of left hip: Plan: -S/p left hip bipolar hemiarthroplasty with Dr. Magana on 11/15/22 -Now POD #1 Left hip I&D with femoral head exchange with Dr. Chapman on 12/11/22 -Wound cultures grew staph aureus MRSA. Additional intra-operative cultures pending. Continue IV abx per primary, currently on vancomycin and zosyn -Continue Hemovac for now. Silverlon dressing to stay in place x 1 week -DVT ppx: TEDs/SCDs. Currently holding Eliquis -PT/OT protocols. WBAT LLE with walker -Pain control as written Admission and Anticipated Discharge Date Admission Date: December 08, 2022 Subjective Patient did well over night. Denies having current pain and states that she fe els improved since her surgery. She has remained afebrile, additional vital signs stable. Currently denies lightheadedness, dizziness, chest pain, shortness of breath, abdominal pain, nausea, vomiting or any other acute complaints. Review of Systems Review of Systems: All systems were reviewed and were negative unless otherwise noted as above. Physical Exam Constitutional: Resting in bed, no acute distress Musculoskeletal: Dressing clean, dry and intact. Wound vac in place with minimal output. Thigh is mildly edematous, soft and compressible without significant tenderness. Calf is also soft and compressible. Dorsi/plantarflexion intact, toes mobile. Sensation and d/p pulse intact Skin: Warm and well perfused Neurologic: Awake, alert and oriented x 3. Interacting and answering questions appropriately Results & Data Vital Signs (Past 12 Hours) Vital Signs Temp Pulse Resp BP Pulse Ox O2 Del Method O2 Flow Rate 12/11/22 05:06 36.3 C L 76 15 131/78 95 Room Air 12/11/22 00:24 36.4 C L 81 16 102/65 95 Room Air 12/10/22 22:42 36.3 C L 79 16 103/65 96 Room Air 12/10/22 20:45 105/68 12/10/22 20:32 71 99/65 L 12/10/22 18:58 36.3 C L 73 15 112/70 99 Nasal Cannula 2 Laboratory Results Laboratory Tests 12/11/22 12/11/22 05:34 05:34 WBC 8.17 RBC 2.97 L Hgb 8.6 L Hct 27.4 L Plt Count 326 Sodium 141 Potassium 3.8 Chloride 111 H Carbon Dioxide 23 Anion Gap 7 BUN 14 Creatinine 1.25 H
--- NOTE | 2022-12-11 07:42 | Pharmacy Report ---
Pharmacy Vanc AUC Short Note - Date of Service December 11, 2022 - Assessment & Plan Assessment 82 year old F receiving vancomycin/Zosyn for treatment of hip infection. Pertinent microbiologic data includes: L hip culture culture growing MRSA. Day # 4 of antimicrobial therapy. Plan Vancomycin * AUC/MAURICE is the preferred PK/PD target for vancomycin * AUC guided dosing is effective and associated with decreased risk of nephrotoxicity compared to traditional trough targets * Trough level of 17.3 mcg/mL is predicted to achieve target AUC/MAURICE of 400-600 mg/L.hr and may be associated with a 12 % risk of nephrotoxicity * Continue dose of 1000 mg IV every 24 hours * Trough to be ordered based upon duration of vancomycin Pharmacy will continue to follow and will adjust dose/frequency as necessary. Thank you.
[2022-12-11] MEDS: VANCOMYCIN HCL 1,000 MG in SODIUM CHLORIDE 0.9% 250 ML IV SCH (10:05)
--- NOTE | 2022-12-11 13:44 | Hospitalist Progress Note ---
Date of Service December 11, 2022 Assessment & Plan (1) Postoperative wound infection of left hip: Plan: Patient presenting from home for evaluation of drainage from left hip wound. Patient is s/p left hip bipolar hemiarthroplasty on 11/15/[address] Magana. 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 Patient denies any acute cardiopulmonary complaints. Patient considered acceptable risk to proceed with surgery. (3) Hypertension: Plan: HCTZ and ramipril discontinued during previous admission BP currently controlled, continue current dose of atenolol (4) Anemia: Plan: hgb 9.8 (down from 10.4 on 11/17) No signs of active bleeding, likely postop acute blood loss anemia No indication for transfusion Monitor CBC-hemoglobin is 8.7 and will monitor Hemoglobin remains stable at 8.5 as of 12/10/2022 (5) Hypothyroid: Plan: Continue levothyroxine DVT PROPHYLAXIS SCDs due to likely upcoming surgical procedure Admission and Anticipated Discharge Date Admission Date: December 08, 2022 Subjective 12/09/2022 The patient was seen and examined in medical floor She has had left bipolar hemiarthroplasty on 11/09/2022 and has been oozing from the wound She denies any other symptoms of chest pain, palpitation or shortness of breath Does have swelling of the left lower extremity She will have surgery tomorrow 12/10/2022 The patient was seen and examined in medical floor She is a status post left hip incision and drainage and left femoral head exchange Has been complaining of cold and shivering and temperature has been noted to be low at 35.8 C Denies any other significant symptoms 12/11/2022 The patient was seen and examined in medical floor He is status post left hip incision and drainage and left femoral head exchange Has been out of bed on a chair without any significant symptoms No fever and or chills Review of Systems Review of Systems: All systems reviewed and are unremarkable except as noted below Physical Exam Physical Exam: Sitting on a chair without any acute distress Constitutional: well developed, well nourished, + ill appearing and average body habitus Eyes: PERRL, conjunctivae normal, anicteric sclerae ENMT: external ear and nose normal, oropharynx normal Neck: trachea midline, no thyromegaly Respiratory: no respiratory distress Auscultation: lungs clear to auscultation bilaterally Cardiovascular: Rate/Rhythm: regular rate and regular rhythm; not tachycardic Heart Sounds: normal S1, normal S2 and + murmur Extremities: + edema (1+ edema on the right and 2+ on the left) Gastrointestinal (Abdomen): Inspection/Auscultation: normal bowel sounds; abdomen not distended Percussion/Palpation: abdomen soft; abdomen nontender Musculoskeletal: Left hip pain with movement of the left lower extremity Neurologic: normal touch/pain/proprioception Psychiatric: A+Ox3, euthymic affect Lymphatic: no cervical or axillary lymphadenopathy Results & Data Results & Data Vital Signs (Past 12 Hours) Vital Signs Temp Pulse Resp BP Pulse Ox O2 Del Method 12/11/22 07:31 36.6 C 73 16 120/79 94 Room Air 12/11/22 05:06 36.3 C L 76 15 131/78 95 Room Air Laboratory Results Short CBC 12/11/22 Range/Units 05:34 WBC 8.17 (4.8-10.8) K/ul Hgb 8.6 L (12.0-16.0) g/dl Hct 27.4 L (37.0-47.0) % Plt Count 326 (130-400) K/uL BMP 12/11/22 05:34 Sodium 141 Potassium 3.8 Chloride 111 H Carbon Dioxide 23 BUN 14 Creatinine 1.25 H Glucose 89 Calcium 8.4 L Medications Administered Current Inpatient Medications Acetaminophen (Acetaminophen 325 Mg Tab) 650 mg PO Q4H PRN PRN Reason: pain/fever Stop: 01/07/23 15:25 Last Admin: 12/11/22 13:37 Dose: 650 mg Atenolol (Atenolol 25 Mg Tablet) 12.5 mg PO QPM [facility] Stop: 01/07/23 20:59 Last Admin: 12/10/22 20:45 Dose: 12.5 mg Piperacillin Sod/Tazobactam (Sod 4.5 gm/ Dextrose) 120 mls @ 30 mls/hr IV Q8H [facility]; Protocol Stop: 12/15/22 21:59 Last Infusion: 12/11/22 09:18 Dose: Infused Vancomycin HCl 1,000 mg/ (Sodium Chloride) 270 mls @ 200 mls/hr IV Q24H [facility]; Protocol Stop: 12/16/22 13:59 Last Infusion: 12/11/22 11:30 Dose: Infused Levothyroxine Sodium (Levothyroxine Sodium 125 Mcg Tablet) 125 mcg PO DAILYBB [facility] Stop: 01/08/23 06:29 Last Admin: 12/11/22 05:31 Dose: 125 mcg Miscellaneous Information (Vancomycin Consult Active) 1 each N/A UD PRN PRN Reason: Consult Stop: 01/07/23 14:38 Morphine Sulfate (Morphine Sulfate 2 Mg/Ml Carp) 2 mg IV Q3H PRN PRN Reason: Pain Stop: 12/24/22 15:45 Naloxone HCl (Naloxone Hcl 0.4 Mg/1 Ml Vial/Carp) 0.1 mg IV Q5M PRN PRN Reason: Oversedation/Resp Depression Stop: 01/09/23 09:36 Risperidone (Risperidone 0.5 Mg Tablet) 0.25 mg PO QPM [facility] Stop: 01/07/23 20:59 Last Admin: 12/10/22 20:40 Dose: 0.25 mg
[2022-12-11] MEDS: ATENOLOL 25 MG TABLET PO SCH (20:45)
[2022-12-11] MEDS: risperiDONE 0.5 MG TABLET PO SCH (20:47)
[2022-12-12] MEDS: PIPERACILLIN/TAZOBACTAM 4.5 GM in DEXTROSE 5% 100 ML IV SCH (06:17)
[2022-12-12] MEDS: LEVOTHYROXINE SODIUM 125 MCG TABLET PO SCH (06:18)
[2022-12-12 08:36] LABS: Basophils # (auto) 0.03 K/uL (0-0.2); Basophils % (auto) 0.4 %; Eosinophils # (auto) 0.38 K/uL (0-0.50); Eosinophils % (auto) 4.8 %; Hematocrit (blood only) 27.3 % (37.0-47.0); Hemoglobin 8.7 g/dl (12.0-16.0); Immature Granulocytes # (auto) 0.14 K/uL (0.01-0.20); Immature Granulocytes % (auto) 1.8 %; Lymphocytes # (auto) 0.63 K/uL (1.2-3.4); Mean Corpuscular Hemoglobin 28.9 pg (25.0-34.0); Mean Corpuscular Hgb Conc 31.9 g/dL (32.0-36.0); Mean Corpuscular Volume 90.7 fL (80.0-100.0); Mean Platelet Volume 8.9 fL (9.4-12.4); Monocytes % (auto) 7.7 %; Neutrophils # (auto) 6.06 K/uL (1.40-6.50); Neutrophils % (auto) 77.3 %; Platelet Count 327 K/uL (130-400); RDW Coefficient of Variation 14.8 % (11.5-14.5); Red Blood Count 3.01 M/uL (4.20-5.40); White Blood Count 7.84 K/ul (4.8-10.8)
[2022-12-12 08:55] LABS: BUN Creatinine Ratio 9.4 (10-20); Calcium 8.6 mg/dl (8.6-10.3); Creatinine Clr Calc Pharmacy 30.6 ml/min; Est GFR (African American) 40.9 ml/min; Est GFR (Non-African American) 35.3 ml/min; Potassium 3.9 mmol/L (3.5-5.1)
[2022-12-12] MEDS: VANCOMYCIN HCL 1,000 MG in SODIUM CHLORIDE 0.9% 250 ML IV SCH (10:37)
--- NOTE | 2022-12-12 10:40 | Pharmacy Report ---
Pharmacy PK ABX Note - Date of Service December 12, 2022 - Assessment and Plan Assessment 82 year old F receiving Vancomycin and Zosyn for treatment of left hip prosthetic joint infection. * Day #5 of antimicrobial therapy. * Remains afebrile and without leukocytosis. Renal fxn stable. * Micro: Surface and wound cultures from OR growing MRSA. * Recommendations from Infectious Disease: IV Vancomycin x 6 weeks and PO Rifampin for 3 months. * Hospitalist okay with discontinuation of Zosyn today and start of Rifampin. * Rifampin will interact with Risperidone. Recommendation is monitor for symptoms of underlying illness given that Rifampin is a CY inducer which will decrease the serum concentrations of CY substrates such as Risperidone. Would recommend deferring change in risperidone to outpatient provider. However, if a dose increase is decided upon, then recommend increasing to 0.5 mg PO HS. * Patient is on Eliquis for orthopedic DVT prophylaxis as well. This is contraindicated with Rifampin use. Consider use of an antiplatelet such as aspirin for orthopedic DVT prophylaxis moving forward. Plan Vancomycin * Current regimen: 1000 mg IV every 24 hours * Random level obtained 12/12/22 resulted as 16.2 mcg/mL. This is predicted to achieve target AUC/MAURICE of 400-600 mg/L.hr * Predicted AUC at steady state: 532 mg/L.hr * Continue 1000 mg IV every 24 hours * Repeat random level ordered for: 12/14/22 Rifampin * 300 mg PO BID Pharmacy will continue to follow and will adjust dose/frequency as necessary. Thank you. Pharmacy has transitioned to AUC monitoring for vancomycin. AUC/MAURICE is the preferred PK/PD target and is associated with decreased risk of nephrotoxicity compared to traditional trough targets.
[2022-12-12] MEDS ORDERED: rifAMPin 300 MG CAPSULE PO SCH (11:00)
--- NOTE | 2022-12-12 11:25 | Hospitalist Progress Note ---
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 Magana POD #2 Management will be as per Ortho Gram stain from the wound is growing MRSA-on 12/08/2022 Intra op cultures on 12/10 showing gram + cocci, final results still pending ID consult on 12/11 - recs IV vancomycin x 6 weeks, weekly cbc, cmp, crp and vanco trough Rifampin 300mg bid x 3 months after 6 weeks of IV vanco - then Doxycycline recommended lifelong After further discussion with daughter and patient they do not wish to puruse IV vancomycin or rifampin after further research and discussion. They would like an oral option to try and to be discharged on Will discuss with Dr. Ruiz to determine his recommendation for discharge Addendum: At 1635 I called patient's daughter Jes. She asked that I reach out to infectious disease for oral antibiotic option as they were refusing IV and rifampin. I discussed with Dr. Ruiz who again stated that IV antibiotic therapy for 6 weeks is evidence-based therapy and treatment of choice in the treatment of bone and joint infection and is curative. Oral antibiotic therapy alone is not indicated. This was discussed with daughter who states that "my mother is 82 and I just do not want to put her through any more treatment." Patient stated to daughter today that "she did not want to do any further IV antibiotic therapy." Risks were given to daughter and she is asking to proceed with oral antibiotic therapy doxycycline 100 mg twice daily. I did discuss this with Dr. Ruiz. He again stated that this is not treatment of choice and likely not curative, but would be better than nothing. Against our advice patient's IV vancomycin and oral rifampin were discontinued. We will start doxycycline 100 mg twice daily and plan for discharge on . She will need close outpatient follow-up with her PCP and orthopedics. (2) History of hemiarthroplasty of left hip: Plan: EKG and CXR reviewed. Patient denies any acute cardiopulmonary complaints. Patient considered acceptable risk to proceed with surgery. (3) Hypertension: Plan: HCTZ and ramipril discontinued during previous admission BP currently controlled, continue current dose of atenolol (4) Anemia: Plan: hgb 8.7 (down from 10.4 on 11/17) No signs of active bleeding, likely postop acute blood loss anemia No indication for transfusion Monitor CBC (5) Hypothyroid: Plan: Continue levothyroxine DVT PROPHYLAXIS SCDs, previously was on eliquis; however unable to take eliquis with rifampin discussed with ortho, okay to place on ASA bid at discharge Pt was seen and examined in collaboration with Dr. Dunbar, please see addendum A total of 50 was spent coordinating, documenting, and providing care for this patient excluding time spent in the performance of separately billed services. This included personally viewing all current laboratories and imaging studies, medication reconciliation, outpatient chart review, and discussion with specialists. Admission and Anticipated Discharge Date Admission Date: December 08, 2022 Supervising Physician Co-Signing Physician Notes Attending addendum: The patient was seen and examined in medical floor in presence of the daughters The daughter wants her mom to take oral medications to treat MRSA infection in the left hip The patient denies any significant symptoms and ready to be discharged On examination Sitting on a chair without any apparent distress Remains hemodynamically stable Has been getting physical therapy and ready to be discharged Chestclear to auscultate bilaterally HeartS1-S2, regular Abdomenbenign Her labs, imaging studies and medications reviewed Has left hip wound infection and joint infection as well with MRSA The daughter wants to have it treated with oral antibiotic not any IV as is recommended knowing the possibility of infection is not being controlled and condition getting worse from here. Discussed with ID and will be given oral doxycycline on discharge Agree with assessment plan as outlined above by CHRISTIAN Kaplan DR Subjective Patient seen and examined in room 388. Follow-up left hip infection. Feels well this morning. Offers no acute complaints. Denies pain and has good appetite. Denies chest pain, shortness breath, nausea and vomiting. Discussed current plan and patient states to defer to her daughter as she is unaware and her daughter has been caring for most of her medical needs. Review of Systems Review of Systems: All systems reviewed & are unremarkable except as noted in HPI & below Physical Exam Physical Exam: Gen: WD/WN, elderly, NAD, A&O x3 HEENT: Normocephalic, atraumatic, conjunctivae moist, sclerae anicteric, mucous membranes moist. Lung: Clear to Auscultation bilaterally, no wheezes/rales/rhonchi Heart: Regular rate, regular rhythm, + murmur, no rubs, or gallops Abdomen: Soft, NT, ND +BS x 4 Extremities: trace b/l edema Skin: Warm, no rash, negative turgor. Results & Data Results & Data Vital Signs (Past 12 Hours) Vital Signs Temp Pulse Resp BP Pulse Ox O2 Del Method 12/12/22 07:03 36.7 C 81 16 114/75 94 Room Air Laboratory Results Short CBC 12/12/22 Range/Units 08:05 WBC 7.84 (4.8-10.8) K/ul Hgb 8.7 L (12.0-16.0) g/dl Hct 27.3 L (37.0-47.0) % Plt Count 327 (130-400) K/uL BMP 12/12/22 08:05 Sodium 143 Potassium 3.9 Chloride 112 H Carbon Dioxide 26 BUN 13 Creatinine 1.38 H Glucose 89 Calcium 8.6 Medications Administered Current Inpatient Medications Acetaminophen (Acetaminophen 325 Mg Tab) 650 mg PO Q4H PRN PRN Reason: pain/fever Stop: 01/07/23 15:25 Last Admin: 12/11/22 20:53 Dose: 650 mg Atenolol (Atenolol 25 Mg Tablet) 12.5 mg PO QPM [facility] Stop: 01/07/23 20:59 Last Admin: 12/11/22 20:45 Dose: 12.5 mg Vancomycin HCl 1,000 mg/ (Sodium Chloride) 270 mls @ 200 mls/hr IV Q24H [facility]; Protocol Stop: 12/16/22 13:59 Last Admin: 12/12/22 10:37 Dose: 200 mls/hr Levothyroxine Sodium (Levothyroxine Sodium 125 Mcg Tablet) 125 mcg PO DAILYBB [facility] Stop: 01/08/23 06:29 Last Admin: 12/12/22 06:18 Dose: 125 mcg Miscellaneous Information (Vancomycin Consult Active) 1 each N/A UD PRN PRN Reason: Consult Stop: 01/07/23 14:38 Morphine Sulfate (Morphine Sulfate 2 Mg/Ml Carp) 2 mg IV Q3H PRN PRN Reason: Pain Stop: 12/24/22 15:45 Naloxone HCl (Naloxone Hcl 0.4 Mg/1 Ml Vial/Carp) 0.1 mg IV Q5M PRN PRN Reason: Oversedation/Resp Depression Stop: 01/09/23 09:36 Rifampin (Rifampin 300 Mg Capsule) 300 mg PO BID [facility]; Protocol Stop: 01/23/23 10:59 Risperidone (Risperidone 0.5 Mg Tablet) 0.25 mg PO QPM [facility] Stop: 01/07/23 20:59 Last Admin: 12/11/22 20:47 Dose: 0.25 mg
--- NOTE | 2022-12-12 12:40 | Orthopedic Progress Note ---
Date of Service December 12, 2022 Assessment & Plan (1) Postoperative wound infection of left hip: Plan: -S/p left hip bipolar hemiarthroplasty with Dr. Magana on 11/15/22 -Now POD #2 Left hip I&D with femoral head exchange with Dr. Chapman on 12/11/22 -Wound cultures grew staph aureus MRSA. Infectious disease team recommending IV vancomycin and p.o. rifampin x6 weeks. -Plan to discontinue Hemovac today. -DVT ppx: TEDs/SCDs. Changed to aspirin p.o. twice daily secondary to incompatibility of Eliquis with rifampin. -PT/OT protocols. WBAT LLE with walker -Pain control as written Admission and Anticipated Discharge Date Admission Date: December 08, 2022 Subjective Postop day 2 Patient sitting up in bed awake and alert. She has no complaints today. Pain is controlled. She states that she was ambulating out in the hallway without difficulty. Physical Exam Physical Exam: Silverlon dressing is clean, dry, and intact. Hemovac drain is present. Drainage down to 25 mL. She has been calves are soft and nontender. Neurovascular intact. Toes are mobile. Leg lengths appear equal. Results & Data Vital Signs (Past 12 Hours) Vital Signs Temp Pulse Resp BP Pulse Ox O2 Del Method 12/12/22 07:03 36.7 C 81 16 114/75 94 Room Air Laboratory Results 12/12/22 12/12/22 12/12/22 Range/Units 08:05 08:05 08:05 WBC 7.84 (4.8-10.8) K/ul RBC 3.01 L (4.20-5.40) M/uL Hgb 8.7 L (12.0-16.0) g/dl Hct 27.3 L (37.0-47.0) % MCV 90.7 (80.0-100.0) fL MCH 28.9 (25.0-34.0) pg MCHC 31.9 L (32.0-36.0) g/dL RDW Std Deviation 49.0 H (36.4-46.3) fL RDW Coeff of Adam 14.8 H (11.5-14.5) % Plt Count 327 (130-400) K/uL MPV 8.9 L (9.4-12.4) fL Immature Gran % (Auto) 1.8 % Neut % (Auto) 77.3 % Lymph % (Auto) 8.0 % [place] % (Auto) 7.7 % Eos % (Auto) 4.8 % Baso % (Auto) 0.4 % Neut # (Auto) 6.06 (1.40-6.50) K/uL Lymph # (Auto) 0.63 L (1.2-3.4) K/uL [place] # (Auto) 0.60 H (0.11-0.59) K/uL Eos # (Auto) 0.38 (0-0.50) K/uL Baso # (Auto) 0.03 (0-0.2) K/uL Immature Gran # (Auto) 0.14 (0.01-0.20) K/uL Sodium 143 (136-145) mmol/L Potassium 3.9 (3.5-5.1) mmol/L Chloride 112 H (98-107) mmol/L Carbon Dioxide 26 (21-32) mmol/L Anion Gap 5 (3-11) BUN 13 (6-23) mg/dl Creatinine 1.38 H (0.6-1.2) mg/dl Est Cr Clr Drug Dosing 30.6 ml/min Est GFR ( Amer) 40.9 ml/min Est GFR (Non-Af Amer) 35.3 ml/min BUN/Creatinine Ratio 9.4 L (10-20) Glucose 89 (70-99(Fasting)) mg/dl Calcium 8.6 (8.6-10.3) mg/dl Random Vancomycin 16.2 (10-20) mcg/ml
[2022-12-12] MEDS: ACETAMINOPHEN 325 MG TAB PO PRN (20:29)
[2022-12-12] MEDS: risperiDONE 0.5 MG TABLET PO SCH (20:30)
[2022-12-12] MEDS: ATENOLOL 25 MG TABLET PO SCH (20:30)
[2022-12-12] MEDS: DOXYCYCLINE HYCLATE 100 MG CAP PO SCH (20:30)
[2022-12-13] MEDS: LEVOTHYROXINE SODIUM 125 MCG TABLET PO SCH (05:25)
[2022-12-13] MEDS: DOXYCYCLINE HYCLATE 100 MG CAP PO SCH ×2 (08:35→20:43)
[2022-12-13] MEDS: ASPIRIN 81 MG ECTAB PO SCH ×2 (08:36→20:42)
[2022-12-13 09:12] LABS: Hemoglobin 8.9 g/dl (12.0-16.0); Mean Corpuscular Hemoglobin 29.2 pg (25.0-34.0); Mean Corpuscular Hgb Conc 31.8 g/dL (32.0-36.0); Mean Corpuscular Volume 91.8 fL (80.0-100.0); Mean Platelet Volume 9.1 fL (9.4-12.4); Platelet Count 331 K/uL (130-400); RDW Coefficient of Variation 14.9 % (11.5-14.5); RDW Standard Deviation 49.7 fL (36.4-46.3); Red Blood Count 3.05 M/uL (4.20-5.40); White Blood Count 7.35 K/ul (4.8-10.8)
[2022-12-13 09:35] LABS: Creatinine Clr Calc Pharmacy 35.7 ml/min; Est GFR (African American) 49.4 ml/min; Est GFR (Non-African American) 42.6 ml/min
[2022-12-13 09:48] LABS: Potassium 3.8 mmol/L (3.5-5.1)
[2022-12-13 09:54] LABS: BUN Creatinine Ratio 11.2 (10-20); Creatinine Clr Calc Pharmacy 33.7 ml/min; Est GFR (African American) 46.1 ml/min; Est GFR (Non-African American) 39.7 ml/min
--- NOTE | 2022-12-13 11:34 | Hospitalist Progress Note ---
Date of Service December 13, 2022 Assessment & Plan (1) Postoperative wound infection of left hip: Plan: Infected left total hip arthroplastyrequiring I&D and femoral head exchange Status post left hip incision and drainage and Left femoral head exchange-on 12/10/2022 S/P L hip bipoloar hemiarthroplasty 11/[address] Magana POD #3 Management will be as per Ortho Gram stain from the wound is growing MRSA-on 12/08/2022 Intra op cultures on 12/10 growing MRSA as well ID consult on 12/11 - recs IV vancomycin x 6 weeks, weekly cbc, cmp, crp and vanco trough Rifampin 300mg bid x 3 months after 6 weeks of IV vanco - then Doxycycline recommended lifelong After further discussion with daughter and patient they do not wish to puruse IV vancomycin or rifampin after further research and discussion. They would like an oral option to try and to be discharged on Discussed with Dr. Ruiz again who offered IV dapto for once daily dosing; however daughter continues to decline IV therapy despite being offered risks of worsened infection to hip, sepsis and even please refer to my addenum on 12/12/22 progress note for further discussion with Daughter. Discussed with Ortho is humphrey who is going to reach out to attending to also discuss with Pt daughter Addendum: Had extensive discussion with Daughter Jes, patient and Dr. Ruiz all via phone call. He explained reasoning behind antibiotics of choice. Daughter adamant about not doing IV antibiotics with vancomycin or dapto despite further discussion with DR. Ruiz. I asked Dr. Ruiz about possibility of dalvance therapy and he did not feel that data supports this and would not recommend. Family wishes to take pt home tomorrow with home health services and oral doxy. Pt and family were given risks of not continuing with antibiotic therapy including worsened infection, sepsis, loss of limb or and are agreeable and accept risks. This was discussed with Orthopedics, attending, case management and ID. (2) History of hemiarthroplasty of left hip: Plan: EKG and CXR reviewed. Patient denies any acute cardiopulmonary complaints. Patient considered acceptable risk to proceed with surgery. (3) Hypertension: Plan: HCTZ and ramipril discontinued during previous admission BP currently controlled, continue current dose of atenolol (4) Anemia: Plan: hgb 8.9 (down from 10.4 on 11/17), improving No signs of active bleeding, likely postop acute blood loss anemia No indication for transfusion Monitor CBC (5) CKD (chronic kidney disease) stage 3, GFR 30-59 ml/min: Plan: unknown baseline, but cr 1.0-1.4 continue to monitor closely and avoid nephrotoxins encourage fluids (6) Hypothyroid: Plan: Continue levothyroxine DVT PROPHYLAXIS SCDs, ASA BID while recovering from surgery Pt was seen and examined in collaboration with Dr. Yates, please see addendum A total of 70 was spent coordinating, documenting, and providing care for this patient excluding time spent in the performance of separately billed services. This included personally viewing all current laboratories and imaging studies, medication reconciliation, outpatient chart review, and discussion with specialists. Admission and Anticipated Discharge Date Admission Date: December 08, 2022 Supervising Physician Co-Signing Physician Notes I have seen and examined the patient and have discussed the case with the provider above. I agree with the assessment and plan as stated. 82 yo F with left hip joint infection with hardware. She is doing well overall with no complaints or concerns. Physical exam is unremarkable with wound site healing well. Cont antibiotics per plan noted above. Plan for DC to home with home health likely tomorrow. DO Ganesh Yates Patient was seen and examined in room 388. Follow-up left hip infection. Patient overall feels well and denies any current pain. She is sitting in bed. She denies fever, chills, sweats, chest pain, shortness, nausea vomiting abdominal pain. Appetite is good. Discussing current treatment plan she defers to her daughter she makes decisions with her treatment plan. Physical Exam Physical Exam: Gen: WD/WN, elderly, NAD, A&O x3 HEENT: Normocephalic, atraumatic, conjunctivae moist, sclerae anicteric, mucous membranes moist. Lung: Clear to Auscultation bilaterally, no wheezes/rales/rhonchi Heart: Regular rate, regular rhythm, + murmur, no rubs, or gallops Abdomen: Soft, NT, ND +BS x 4 Extremities: Trace left lower extremity edema, dressing CDI Skin: Warm, no rash, negative turgor. Results & Data Results & Data Vital Signs (Past 12 Hours) Vital Signs Temp Pulse Resp BP BP Pulse Ox O2 Del Method 12/13/22 07:45 36.5 C 68 16 131/87 97 Room Air 12/13/22 00:20 79 120/70 Laboratory Results Short CBC 12/13/22 Range/Units 08:24 WBC 7.35 (4.8-10.8) K/ul Hgb 8.9 L (12.0-16.0) g/dl Hct 28.0 L (37.0-47.0) % Plt Count 331 (130-400) K/uL BMP 12/13/22 12/13/22 08:24 08:24 Sodium 143 Potassium 3.8 Chloride 112 H Carbon Dioxide 25 BUN 14 Creatinine 1.18 1.25 H Glucose 86 Calcium 9.0 Medications Administered Medication List Acetaminophen (Acetaminophen 325 Mg Tab) 650 mg PO Q4H PRN PRN Reason: pain/fever Stop: 01/07/23 15:25 Last Admin: 12/12/22 20:29 Dose: 650 mg Documented By: Admin: 12/11/22 20:53 Dose: 650 mg Documented By: MARIA D Admin: 12/11/22 13:37 Dose: 650 mg Documented By: Admin: 12/11/22 09:21 Dose: 650 mg Documented By: Admin: 12/11/22 01:47 Dose: 650 mg Documented By: LISANDRO(2) Admin: 12/10/22 21:12 Dose: 650 mg Documented By: LISANDRO(2) Admin: 12/10/22 14:54 Dose: 650 mg Documented By: Admin: 12/09/22 21:02 Dose: 650 mg Documented By: Admin: 12/08/22 23:02 Dose: 650 mg Documented By: ELI Aspirin (Aspirin 81 Mg Ectab) 81 mg PO BID [facility] Stop: 01/12/23 08:59 Last Admin: 12/13/22 08:36 Dose: Not Given Documented By: LISSETH Atenolol (Atenolol 25 Mg Tablet) 12.5 mg PO QPM NATHAN Stop: 01/07/23 20:59 Last Admin: 12/12/22 20:30 Dose: 12.5 mg Documented By: Admin: 12/11/22 20:45 Dose: 12.5 mg Documented By: MARIA D Admin: 12/10/22 20:45 Dose: 12.5 mg Documented By: LISANDRO(2) Admin: 12/09/22 21:02 Dose: 12.5 mg Documented By: Admin: 12/08/22 20:40 Dose: 12.5 mg Documented By: EM Doxycycline Hyclate (Doxycycline Hyclate 100 Mg Cap) 100 mg PO BID [facility] Stop: 01/11/23 20:59 Last Admin: 12/13/22 08:35 Dose: 100 mg Documented By: Admin: 12/12/22 20:30 Dose: 100 mg Documented By: LISANDRO Levothyroxine Sodium (Levothyroxine Sodium 125 Mcg Tablet) 125 mcg PO DAILYBB [facility] Stop: 01/08/23 06:29 Last Admin: 12/13/22 05:25 Dose: 125 mcg Documented By: Admin: 12/12/22 06:18 Dose: 125 mcg Documented By: LISSETH(2) Admin: 12/11/22 05:31 Dose: 125 mcg Documented By: LISANDRO(2) Admin: 12/10/22 05:34 Dose: 125 mcg Documented By: Admin: 12/09/22 05:53 Dose: 125 mcg Documented By: ELI Risperidone (Risperidone 0.5 Mg Tablet) 0.25 mg PO QPM [facility] Stop: 01/07/23 20:59 Last Admin: 12/12/22 20:30 Dose: 0.25 mg Documented By: Admin: 12/11/22 20:47 Dose: 0.25 mg Documented By: MARIA D Admin: 12/10/22 20:40 Dose: 0.25 mg Documented By: LISANDRO(2) Admin: 12/09/22 21:03 Dose: 0.25 mg Documented By: Admin: 12/08/22 20:40 Dose: 0.25 mg Documented By: ELI Discontinued Medications Fentanyl Citrate (Fentanyl Citrate Pf 100 Mcg/2 Ml Vial) 25 mcg IV Q5M PRN PRN Reason: PACU Use Only-Pain Stop: 12/10/22 17:46 Last Admin: 12/10/22 10:08 Dose: 25 mcg Documented By: Admin: 12/10/22 10:03 Dose: 25 mcg Documented By: WT Fentanyl Citrate (Fentanyl Citrate Pf 100 Mcg/2 Ml Vial) Confirm Administered Dose 100 mcg .ROUTE .STK-MED ONE Stop: 12/10/22 10:03 Last Admin: 12/10/22 10:32 Dose: Not Given Documented By: WT Piperacillin Sod/Tazobactam (Sod 4.5 gm/ Dextrose) 120 mls @ 30 mls/hr IV Q8H [facility]; Protocol Stop: 12/15/22 21:59 Last Infusion: 12/12/22 10:22 Dose: 0 mls/hr Documented By: Admin: 12/12/22 06:17 Dose: 30 mls/hr Documented By: JS(2) Infusion: 12/12/22 01:00 Dose: 0 mls/hr Documented By: JS(2) Admin: 12/11/22 21:00 Dose: 30 mls/hr Documented By: Infusion: 12/11/22 18:15 Dose: 0 mls/hr Documented By: Admin: 12/11/22 14:11 Dose: 30 mls/hr Documented By: Infusion: 12/11/22 09:18 Dose: 0 mls/hr Documented By: Admin: 12/11/22 05:15 Dose: 30 mls/hr Documented By: LISANDRO(2) Infusion: 12/11/22 01:07 Dose: 0 mls/hr Documented By: DMR(2) Admin: 12/10/22 21:09 Dose: 30 mls/hr Documented By: DMR(2) Infusion: 12/10/22 17:12 Dose: 0 mls/hr Documented By: Admin: 12/10/22 13:00 Dose: 30 mls/hr Documented By: Infusion: 12/10/22 11:47 Dose: 0 mls/hr Documented By: Admin: 12/10/22 05:34 Dose: 30 mls/hr Documented By: Infusion: 12/10/22 01:04 Dose: 0 mls/hr Documented By: Admin: 12/09/22 21:03 Dose: 30 mls/hr Documented By: Infusion: 12/09/22 17:59 Dose: 0 mls/hr Documented By: Admin: 12/09/22 13:05 Dose: 30 mls/hr Documented By: Infusion: 12/09/22 09:36 Dose: 0 mls/hr Documented By: Admin: 12/09/22 05:55 Dose: 30 mls/hr Documented By: Infusion: 12/09/22 02:01 Dose: 0 mls/hr Documented By: Admin: 12/08/22 22:01 Dose: 30 mls/hr Documented By: EM Vancomycin HCl 1,500 mg/ (Sodium Chloride) 530 mls @ 200 mls/hr IV NOW STA; Protocol Stop: 12/08/22 17:35 Last Infusion: 12/08/22 19:00 Dose: 0 mls/hr Documented By: Admin: 12/08/22 16:00 Dose: 200 mls/hr Documented By: MARIS Piperacillin Sod/Tazobactam (Sod 4.5 gm/ Dextrose) 120 mls @ 240 mls/hr IV NOW ONE; Protocol Stop: 12/08/22 16:14 Last Infusion: 12/08/22 16:35 Dose: 0 mls/hr Documented By: Admin: 12/08/22 16:01 Dose: 240 mls/hr Documented By: MARIS Vancomycin HCl 1,250 mg/ (Sodium Chloride) 275 mls @ 200 mls/hr IV Q24H NATHAN; Protocol Stop: 12/16/22 15:59 Last Infusion: 12/09/22 16:53 Dose: 0 mls/hr Documented By: Admin: 12/09/22 15:26 Dose: 200 mls/hr Documented By: MARIS Sodium Chloride (Nss 1000ml) 1,000 mls @ 100 mls/hr IV .Q10H NATHAN Stop: 12/11/22 06:00 Last Admin: 12/11/22 06:03 Dose: Not Given Documented By: LISANDRO(2) Infusion: 12/11/22 06:03 Dose: 0 mls/hr Documented By: LISANDRO(2) Admin: 12/10/22 23:19 Dose: 100 mls/hr Documented By: LISANDRO(2) Infusion: 12/10/22 21:33 Dose: 100 mls/hr Documented By: LISANDRO(2) Admin: 12/10/22 11:33 Dose: 100 mls/hr Documented By: MARIS Vancomycin HCl 1,000 mg/ (Sodium Chloride) 270 mls @ 200 mls/hr IV Q24H NATHAN; Protocol Stop: 12/16/22 13:59 Last Infusion: 12/12/22 12:27 Dose: 0 mls/hr Documented By: Admin: 12/12/22 10:37 Dose: 200 mls/hr Documented By: Infusion: 12/11/22 11:30 Dose: 0 mls/hr Documented By: Admin: 12/11/22 10:05 Dose: 200 mls/hr Documented By: Infusion: 12/10/22 14:49 Dose: 0 mls/hr Documented By: Admin: 12/10/22 13:00 Dose: 200 mls/hr Documented By: MARIS Rifampin (Rifampin 300 Mg Capsule) 300 mg PO BID NATHAN; Protocol Stop: 01/23/23 10:59 Last Admin: 12/12/22 11:44 Dose: 300 mg Documented By: KAREL
--- NOTE | 2022-12-13 11:39 | Orthopedic Progress Note ---
Date of Service December 13, 2022 Assessment & Plan (1) Postoperative wound infection of left hip: Plan: -S/p left hip bipolar hemiarthroplasty with Dr. Magana on 11/15/22 -Now POD #3 Left hip I&D with femoral head exchange with Dr. Chapman on 12/11/22 -Wound cultures grew staph aureus MRSA. Infectious disease team recommending IV vancomycin and p.o. rifampin x6 weeks. Daughter apparently is against using IV antibx for various reasons including causing pain and anxiety to her mother. She also believes in a more holistic view of treatment. Currently, IV Vanco and PO Rifampin stopped at her request. PO Doxycycline still "ok'd" by the daughter. I will have Dr. Magana try and reach out to the daughter today to discuss. (Spoke with Camille BARRERA. They will question the use of Dalvance with the patient and her daughter requiring short dosing.) -DVT ppx: TEDs/SCDs. Changed to aspirin p.o. twice daily secondary to incompatibility of Eliquis with rifampin. -PT/OT protocols. WBAT LLE with walker -Pain control as written Admission and Anticipated Discharge Date Admission Date: December 08, 2022 Subjective POD 3 Pt sitting up in bed awake and alert. No complaints this AM. Comfortable. States she ambulated out into hallway with PT today. Physical Exam Physical Exam: Silverlon dressing window with increased blood. Dressing needed re enforced after drain removed yesteday. Thigh soft, NT. Calves soft, NT. NV intact. Results & Data Vital Signs (Past 12 Hours) Vital Signs Temp Pulse Resp BP BP Pulse Ox O2 Del Method 12/13/22 07:45 36.5 C 68 16 131/87 97 Room Air 12/13/22 00:20 79 120/70 Laboratory Results 12/13/22 12/13/22 12/13/22 Range/Units 08:24 08:24 08:24 WBC 7.35 (4.8-10.8) K/ul RBC 3.05 L (4.20-5.40) M/uL Hgb 8.9 L (12.0-16.0) g/dl Hct 28.0 L (37.0-47.0) % MCV 91.8 (80.0-100.0) fL MCH 29.2 (25.0-34.0) pg MCHC 31.8 L (32.0-36.0) g/dL RDW Std Deviation 49.7 H (36.4-46.3) fL RDW Coeff of Adam 14.9 H (11.5-14.5) % Plt Count 331 (130-400) K/uL MPV 9.1 L (9.4-12.4) fL Sodium 143 (136-145) mmol/L Potassium 3.8 (3.5-5.1) mmol/L Chloride 112 H (98-107) mmol/L Carbon Dioxide 25 (21-32) mmol/L Anion Gap 6 (3-11) BUN 14 (6-23) mg/dl Creatinine 1.25 H 1.18 (0.6-1.2) mg/dl Est Cr Clr Drug Dosing 33.7 35.7 ml/min Est GFR ( Amer) 46.1 49.4 ml/min Est GFR (Non-Af Amer) 39.7 42.6 ml/min BUN/Creatinine Ratio 11.2 (10-20) Glucose 86 (70-99(Fasting)) mg/dl Calcium 9.0 (8.6-10.3) mg/dl
[2022-12-13] MEDS: ATENOLOL 25 MG TABLET PO SCH (20:42)
[2022-12-13] MEDS: risperiDONE 0.5 MG TABLET PO SCH (20:43)
[2022-12-14] MEDS: LEVOTHYROXINE SODIUM 125 MCG TABLET PO SCH (06:15)
[2022-12-14 08:29] LABS: Creatinine Clr Calc Pharmacy 32.2 ml/min; Est GFR (African American) 43.5 ml/min; Est GFR (Non-African American) 37.6 ml/min
[2022-12-14] MEDS: DOXYCYCLINE HYCLATE 100 MG CAP PO SCH (09:58)
[2022-12-14] MEDS: ASPIRIN 81 MG ECTAB PO SCH (10:02)
--- NOTE | 2022-12-14 15:37 | Discharge Summary ---
Discharge Summary Date of Service December 14, 2022 Admission HPI Per Admitting Provider 82-year-old female with PMH HTN, hypothyroidism, and other problems listed below who presents to the ED for evaluation of drainage from left hip wound. History obtained from patient at the bedside and review of recent inpatient records. Patient admitted to [facility] 11/14 through 11/17 after a mechanical fall and suffering a left hip fracture. Patient is s/p left hip bipolar hemiarthroplasty on 11/15/[address] Magana. Patient was discharged to [facility] for rehab for 1 week and has since returned home. Currently on Eliquis for DVT prophylaxis. Patient was seen in the orthopedic office last week for postop follow-up and was felt to have a postoperative incisional infection. Patient was started on cefadroxil. This morning, the proximal aspect of patient's incision opened up and started draining a large amount of yellow serous fluid. Patient was referred to the ED for further evaluation. Patient denies any pain in the hip. She denies fevers and chills. Feels as though she has been recovering well from her surgery. She denies chest pain or shortness of breath. No lightheadedness, dizziness, diaphoresis, syncopal events. No abdominal pain, nausea, vomiting, diarrhea. Denies urinary symptoms. In the ED, patient is hemodynamically stable, afebrile, no leukocytosis. Orthopedics has evaluated the patient and recommends exploratory surgery and washout. Principal Dx & Hospital Course #1 = Principal Diagnosis (1) Postoperative wound infection of left hip: Infected left total hip arthroplastyrequiring I&D and femoral head exchange Status post left hip incision and drainage and Left femoral head exchange-on 12/10/2022 S/P L hip bipoloar hemiarthroplasty 11/[address] Magana POD #3 Management will be as per Ortho Gram stain from the wound is growing MRSA-on 12/08/2022 Intra op cultures on 12/10 growing MRSA as well ID consult on 12/11 - recs IV vancomycin x 6 weeks, weekly cbc, cmp, crp and vanco trough Rifampin 300mg bid x 3 months after 6 weeks of IV vanco - then Doxycycline recommended lifelong After further discussion with daughter and patient they do not wish to puruse IV vancomycin or rifampin after further research and discussion. They would like an oral option to try and to be discharged on Discussed with Dr. Ruiz again who offered IV dapto for once daily dosing; however daughter continues to decline IV therapy despite being offered risks of worsened infection to hip, sepsis and even please refer to my addenum on 12/12/22 progress note for further discussion with Daughter. Discussed with Ortho obed yin who is going to reach out to attending to also discuss with Pt daughter Addendum: Had extensive discussion with Daughter Jes, patient and Dr. Ruiz all via phone call. He explained reasoning behind antibiotics of choice. Daughter adamant about not doing IV antibiotics with vancomycin or dapto despite further discussion with DR. Ruiz. I asked Dr. Ruiz about possibility of dalvance therapy and he did not feel that data supports this and would not recommend. Family wishes to take pt home tomorrow with home health services and oral doxy. Pt and family were given risks of not continuing with antibiotic therapy including worsened infection, sepsis, loss of limb or and are agreeable and accept risks. This was discussed with Orthopedics, attending, case management and ID. (2) History of hemiarthroplasty of left hip: EKG and CXR reviewed. Patient denies any acute cardiopulmonary complaints. Patient considered acceptable risk to proceed with surgery. (3) Hypertension: HCTZ and ramipril discontinued during previous admission BP currently controlled, continue current dose of atenolol (4) Anemia: hgb 8.9 (down from 10.4 on 11/17), improving No signs of active bleeding, likely postop acute blood loss anemia No indication for transfusion Monitor CBC (5) CKD (chronic kidney disease) stage 3, GFR 30-59 ml/min: unknown baseline, but cr 1.0-1.4 continue to monitor closely and avoid nephrotoxins encourage fluids (6) Hypothyroid: Continue levothyroxine DVT PROPHYLAXIS SCDs, ASA BID while recovering from surgery Pt was seen and examined in collaboration with Dr. Yates, please see addendum A total of 70 was spent coordinating, documenting, and providing care for this patient excluding time spent in the performance of separately billed services. This included personally viewing all current laboratories and imaging studies, medication reconciliation, outpatient chart review, and discussion with specialists. Updated Medication List Medication Instructions Recorded Confirmed Type acetaminophen 325 mg tablet 650 mg PO Q4H PRN fever or pain 11/17/22 12/08/22 Rx #20 tabs multivitamin with folic acid 400 1 tab PO QAM #30 tabs 11/17/22 12/08/22 Rx mcg tablet (Daily-Jong (with folic acid)) apixaban 2.5 mg tablet (Eliquis) 2.5 mg PO BID 12/08/22 12/08/22 History atenolol 25 mg tablet 12.5 mg PO QPM 12/08/22 12/08/22 History cefadroxil 500 mg capsule 500 mg PO BID 12/08/22 12/08/22 History levothyroxine 125 mcg tablet 125 mcg PO DAILYBB 12/08/22 12/08/22 History risperidone 0.25 mg tablet 0.25 mg PO QPM 12/08/22 12/08/22 History aspirin 81 mg tablet,delayed 81 mg PO BID #60 tabs 12/14/22 Rx release doxycycline hyclate 100 mg capsule 100 mg PO BID #60 caps 12/14/22 Rx Hospital Stay Data Consultations 12/08/22 13:23 ED Decision to Admit Stat 12/08/22 15:26 Consult Orthopedic Surgery Routine 12/11/22 08:29 Consult Infectious Diseases Routine Procedures Performed Operation Date: 12/10/22 07:30 Actual Procedures p Left Hip Incision and Drainage(Left) - José Miguel Chapman DO s Left Femoral Head Exchange(Left) - José Miguel Chapman DO Pending Results Patient Have Any Pending Studies at Discharge: No Discharge Instructions Given to Patient (Per Discharging Provider) Please take all medications as instructed on discharge list below. You are to continue baby aspirin (81mg) twice daily for 4 weeks after surgery to prevent blood clots. Please stop the apixaban (Eliquis) as you are now taking the aspirin. You are being given an antibiotic called doxycycline to continue indefinitely. Please consider outpatient follow-up with [facility] Infectious Disease clinic to monitor how this is doing for you in the next few weeks. Please follow-up with your primary care physician in 1-2 weeks to ensure you are still doing well since returning home. Please follow all orthopedic care instructions as noted, and follow-up for suture removal in two weeks. It was a pleasure taking care of you! Please call if you have any questions or problems. You can reach a [facility] hospitalist on duty at [facility] 24 hours a day by calling [phone]. Take care of yourself. Shasta Yates DO Orthopaedic Hospitalist
== END 2022-12-14 17:00 | disposition home health service (06) | DRG 467 ==
LOC: ED 10:26 → SUATTDRO 13:46 → 3N 13:46
PROC: M.IDHIP (2022-12-10 07:30)

== ENCOUNTER 2023-12-05 19:10 | Observation (INO) ==
--- NOTE | 2023-12-05 20:23 | Emergency Department Note ---
Impression & Plan Generalized weakness, Knee pain, Multiple falls, Acute UTI (urinary tract infection) ED Provider Note ED Provider Note NAME: MIK MIRZA AGE:83 SEX: Female : 1940 ARRIVES VIA: EMS INFORMANT: Patient ED PROVIDER(s): Shannan Urbano DO CHIEF COMPLAINT: Weakness, multiple falls HPI: This is an 83-year-old female brought in by EMS with family presenting to bedside due to concern for increased weakness and multiple falls. Family states they have noticed patient has had increasing weakness, fatigue, decreased appetite over the last several days. She does live alone. She had a fall on Sunday evening, and daughter said after she received phone call from her mom she went over to her house and found her lying on the floor in the bathroom. Patient does not remember how she fell or why she fell. Patient denies any recent fevers, chills, or URI symptoms. Family states she has not gone anywhere and they do not suspect the patient acquired an illness from someone. No recent change in medications. Patient does complain of right knee pain that seemed worse after the second fall tonight. Family states tonight they were present when the second fall happened and they could not get her up. She was no longer stable and could not bear weight even with the use of her walker. PAST MEDICAL HISTORY:See Below PAST SURGICAL HISTORY:See Below FAMILY HISTORY:See Below SOCIAL HISTORY:See Below HOME MEDICATIONS:See Below ALLERGIES:See Below VITALS:See Below PHYSICAL EXAMINATION: GENERAL: alert, well appearing, well nourished, no distress, non-toxic EYE EXAM: normal conjunctiva, PERRL and EOM's grossly intact OROPHARYNX: no exudate, no erythema, lips, buccal mucosa, and tongue normal and mucous membranes are moist NECK: supple, no nuchal rigidity, no adenopathy, non-tender LUNGS: Clear to auscultation. Normal chest wall mechanics, no w/r/r HEART: no murmurs, S1 normal and S2 normal ABDOMEN: abdomen soft, non-tender, normo-active bowel sounds, no masses, no rebound or guarding. BACK: Back is symmetrical on inspection and there is no deformity, no midline tenderness, no CVA tenderness. SKIN: no rashes, petechiae, orbruising UPPER EXTREMITIES: upper extremities are grossly normal. FROM, nml pulses b/l. LOWER EXTREMITIES: No pitting edema. FROM, nml pulses b/l. No reproducible pain with palpation of the right knee and right tib-fib area. No evidence of trauma or deformity. She points to the proximal tibia just inferior to the right knee as the area where she has greatest pain when she ambulates NEURO EXAM: Normal sensorium, cranial nerves II-XII grossly intact, normal speech, no facial droop,nogross weakness of arms, no gross weakness of legs. Gross sensation intact. No ataxia. Vital Signs: reviewed and remarkable Differential Diagnosis: dehydration, stroke, anemia, hypoglycemia, hyponatremia, hypernatremia, urinary tract infection, pneumonia, bronchitis, sepsis, gastroenteritis, additional abdominal pathology, metabolic abnormalities, as well as others were considered MEDICAL DECISION MAKING: This is an elderly woman who lives alone who was brought in by family due to worsening weakness and 2 falls. Patient c/o right LE pain following the fall. She was afebrile and VS stable. Family at bedside helped to give history. Labs drawn and sent, IV established, EKG and xrays performed and interpreted at bedside, and patient placed on telemetry. Patient sent for CT head additionally. SHe was given gentle IVF hydration due to clinical dehydration and family report of decreased oral intake over the last few days. Labs and imaging reassuring. Urine ultimately collected also and revealed UTI. I suspect patient with evolving UTI that led to weakness and loss of appetite which led to dehydration and this combination of symptoms led to her recent falls. She was given IV antibiotics and case discussed with the hospitalist for additional evaluation and mgmt. I do not suspect sepsis at this time. I have a low suspicion for any additional occult traumatic injury. Consultation(s): 2204: DIscussed with Dr. Aleman, [facility] hospitalist, for additional evaluation and tx. ER Treatment Provided: See below Diagnostics Interpreted By Me: -ECG: NSR at 73, nml axis, nml intervals, no acute ST/T wave changes -Cardiac Monitoring: An order was placed for continuous cardiac monitoring. The monitor shows a rate of 67 with normal sinus rhythm. -Laboratory studies: As stated above and show below. -Imaging studies: X-ray Chest: A single view study of the chest was reviewed and was negative for cardiomegaly, focal infiltrate, effusion, pulmonary edema, or wide mediastinum. xr pelvis: no obvious fx/dislocation xr tib/fib: no obvious fx Triage Nursing Note Reviewed Prior/Outside Records Reviewed - prior urine culture reviewed Past Med/Surg History Medical History Hypothyroid Hypertension Closed subcapital fracture of left femur Surgical History History of hemiarthroplasty of left hip Hx laparoscopic cholecystectomy Hx of hysterectomy Social History Smoking Status: Never smoker Second Hand Exposure: No; Do You Dip or Chew Tobacco: No; Hx Alcohol Use: No Hx Substance Use: No Preferred Language: Maldivian Communication Ability: Effective Director Of Retention Required: No Beliefs That Will Affect Care: None Current Living Situation: Family Current Living Situation Comment: one child lives in same home, one lives next door Other Information That Helps Us Care for You: No Feels Safe at Home: Yes Safety Concerns: Feels Safe At This Time Assistive Devices: Cane and Walker Allergies Allergies Allergy/AdvReac Type Severity Reaction Status Date / Time No Known Allergies Allergy Unverified 11/14/22 05:02 Home Meds Home Medications Medication Instructions Recorded Confirmed aspirin 81 mg tablet,delayed 81 mg PO DAILY 12/05/23 12/05/23 release atenolol 25 mg tablet 12.5 mg PO DAILY 12/05/23 12/05/23 levothyroxine 125 mcg tablet 125 mcg PO DAILY 12/05/23 12/05/23 multivitamin (One Daily 1 tab PO DAILY 12/05/23 12/05/23 Multivitamin tablet) risperidone 0.25 mg tablet 0.25 mg PO HS 12/05/23 12/05/23 Results & Data (ED) Vital Signs Vital Signs - 24 hr 12/05/23 19:18 12/05/23 19:18 Temperature 37.6 C 37.6 C Temperature Source Oral Oral Pulse Rate 80 Pulse Rate [Finger] 77 Respiratory Rate 17 17 Blood Pressure 111/72 Blood Pressure [Right Arm] 111/72 Blood Pressure Mean 85 Blood Pressure Mean [Right Arm] 85 Pulse Oximetry 91 95 Oxygen Delivery Method Room Air Room Air Sepsis Recent Fever Within 48 Hours No Sepsis New/Unexplained Change in Mental Status No Sepsis Action Taken by Nursing No Action Required Laboratory Data 12/07/23 06:15 12/07/23 06:15 Lab Results 12/05/23 12/05/23 Range/Units 20:24 21:14 WBC 9.79 (4.8-10.8) K/ul RBC 4.27 (4.20-5.40) M/uL Hgb 11.4 L (12.0-16.0) g/dl Hct 35.1 L (37.0-47.0) % MCV 82.2 (80.0-100.0) fL MCH 26.7 (25.0-34.0) pg MCHC 32.5 (32.0-36.0) g/dL RDW Std Deviation 43.7 (36.4-46.3) fL RDW Coeff of Adam 14.7 H (11.5-14.5) % Plt Count 197 (130-400) K/uL MPV 9.9 (9.4-12.4) fL Immature Gran % (Auto) 0.8 % Neut % (Auto) 85.0 % Lymph % (Auto) 3.0 % [place] % (Auto) 10.9 % Eos % (Auto) 0.0 % Baso % (Auto) 0.3 % Neut # (Auto) 8.32 H (1.40-6.50) K/uL Lymph # (Auto) 0.29 L (1.20-3.40) K/uL [place] # (Auto) 1.07 H (0.11-0.59) K/uL Eos # (Auto) 0.00 (0.00-0.50) K/uL Baso # (Auto) 0.03 (0.00-0.20) K/uL Immature Gran # (Auto) 0.08 (0.01-0.20) K/uL Sodium 138 (136-145) mmol/L Potassium 3.6 (3.5-5.1) mmol/L Chloride 108 H (98-107) mmol/L Carbon Dioxide 21 (21-32) mmol/L Anion Gap 9 (3-11) BUN 27 H (6-23) mg/dl Creatinine 1.47 H (0.6-1.2) mg/dl Est Cr Clr Drug Dosing 28.9 ml/min Est GFR ( Amer) 37.6 ml/min Est GFR (Non-Af Amer) 32.4 ml/min BUN/Creatinine Ratio 18.4 (10-20) Glucose 128 H (70-99(Fasting)) mg/dl Calcium 9.0 (8.6-10.3) mg/dl Magnesium 1.8 (1.7-2.4) mg/dl Total Bilirubin 0.9 (0.2-1.0) mg/dl AST 19 (13-39) U/L ALT 14 (7-52) U/L Alkaline Phosphatase 98 (34-104) U/L Troponin I High Sens 16.7 H (0-14) pg/ml Total Protein 6.3 (6.0-8.3) gm/dl Albumin 3.4 (3.4-5.0) gm/dl Globulin 2.9 (2.5-4.0) gm/dl Albumin/Globulin Ratio 1.2 (0.9-2) Lipase 12 (11-82) U/L TSH 2.720 (0.300-4.500) uIu/ml Urine Color Yellow Urine Appearance Turbid A (Clear) Urine pH 5.5 (4.5-7.5) Ur Specific [place] 1.011 (1.000-1.030) Urine Protein 2+ H (Negative) Urine Glucose (UA) Negative (Negative) Urine Ketones Negative (Negative) Urine Blood 2+ H (Negative) Urine Nitrite Positive A (Negative) Urine Bilirubin Negative (Negative) Urine Urobilinogen Negative (Negative) Ur Leukocyte Esterase 3+ H (Negative) Urine WBC (Auto) >50 H (0-5) /hpf Urine RBC (Auto) 0-2 (0-2) /hpf U Hyaline Cast (Auto) 11-20 H (0-2) /lpf U Epithel Cells (Auto) 0-2 (0-2) /hpf Urine Bacteria (Auto) 3+ H (None Seen) WBC Casts Present A (None Prsent) /lpf Administered Medications Acetaminophen (Acetaminophen 325 Mg Tab) 650 mg PO Q4H PRN PRN Reason: Pain or Fever Stop: 01/05/24 00:21 Last Admin: 12/07/23 11:13 Dose: 650 mg Documented By: KELLI Aspirin (Aspirin 81 Mg Ectab) 81 mg PO DAILY NATHAN Stop: 01/05/24 08:59 Last Admin: 12/07/23 08:01 Dose: 81 mg Documented By: Admin: 12/06/23 08:15 Dose: 81 mg Documented By: [id number] Atenolol (Atenolol 25 Mg Tablet) 12.5 mg PO DAILY NATHAN Stop: 01/05/24 08:59 Last Admin: 12/07/23 08:01 Dose: 12.5 mg Documented By: Admin: 12/06/23 08:15 Dose: 12.5 mg Documented By: [id number] Enoxaparin Sodium (Enoxaparin Inj 30 Mg/0.3 Ml Syr) 30 mg SQ NATHAN Stop: 01/05/24 00:44 Last Admin: 12/07/23 20:48 Dose: 30 mg Documented By: Admin: 12/06/23 21:02 Dose: 30 mg Documented By: Admin: 12/06/23 03:12 Dose: 30 mg Documented By: LARRY Ceftriaxone Sodium (Rocephin) 2,000 mg in 50 mls @ 100 mls/hr IV Q24H NATHAN Stop: 12/16/23 21:59 Last Infusion: 12/07/23 22:09 Dose: Infused Documented By: Admin: 12/07/23 20:48 Dose: 100 mls/hr Documented By: Infusion: 12/06/23 22:01 Dose: Infused Documented By: Admin: 12/06/23 21:02 Dose: 100 mls/hr Documented By: LARRY Levothyroxine Sodium (Levothyroxine Sodium 125 Mcg Tablet) 125 mcg PO DAILY NATHAN Stop: 01/05/24 06:29 Last Admin: 12/07/23 05:28 Dose: 125 mcg Documented By: Admin: 12/06/23 06:11 Dose: 125 mcg Documented By: LARRY Multivitamins (Multivitamin Tab) 1 tab PO DAILY NATHAN Stop: 01/05/24 08:59 Last Admin: 12/07/23 08:01 Dose: 1 tab Documented By: Admin: 12/06/23 08:15 Dose: 1 tab Documented By: [id number] Risperidone (Risperidone 0.25 Mg Tab) 0.25 mg PO NATHAN Stop: 01/05/24 20:59 Last Admin: 12/07/23 20:49 Dose: Not Given Documented By: Admin: 12/06/23 21:02 Dose: 0.25 mg Documented By: LARRY Discontinued Medications Sodium Chloride (Nss) 1,000 mls @ 125 mls/hr IV .Q8H NATHAN Stop: 01/04/24 20:29 Last Infusion: 12/06/23 00:24 Dose: Infused Documented By: Admin: 12/05/23 21:26 Dose: 125 mls/hr Documented By: QUINN Ceftriaxone Sodium (Rocephin) 2,000 mg in 50 mls @ 100 mls/hr IV NOW STA Stop: 12/05/23 22:26 Last Infusion: 12/05/23 23:46 Dose: Infused Documented By: Admin: 12/05/23 22:45 Dose: 100 mls/hr Documented By: QUINN Dextrose/Sodium Chloride (D5w And Nss) 1,000 mls @ 100 mls/hr IV .Q10H NATHAN Stop: 01/05/24 00:21 Last Admin: 12/07/23 17:00 Dose: Not Given Documented By: Infusion: 12/07/23 17:00 Dose: Infused Documented By: Admin: 12/07/23 08:01 Dose: 100 mls/hr Documented By: Infusion: 12/07/23 06:32 Dose: Infused Documented By: Admin: 12/06/23 20:32 Dose: 100 mls/hr Documented By: Infusion: 12/06/23 20:32 Dose: Infused Documented By: Admin: 12/06/23 10:32 Dose: 100 mls/hr Documented By: [id number] Infusion: 12/06/23 10:32 Dose: Infused Documented By: [id number] Admin: 12/06/23 01:15 Dose: 100 mls/hr Documented By: LARRY Magnesium Sulfate/Dextrose (Magnesium Sulfate / D5w) 1 gm in 100 mls @ 50 mls/hr IV ONE ONE Stop: 12/07/23 12:13 Last Infusion: 12/07/23 13:10 Dose: Infused Documented By: Admin: 12/07/23 11:12 Dose: 50 mls/hr Documented By: KELLI Potassium Chloride (Potassium Chloride Crtab 20 Meq Tabcr) 20 meq PO NOW STA Stop: 12/06/23 08:04 Last Admin: 12/06/23 08:14 Dose: 20 meq Documented By: [id number] Imaging Data Radiologist's Impression: Head CT 12/05/23 20:21 Exam(s): CT HEAD Without Contrast EXAM: CT Head Without Intravenous Contrast CLINICAL HISTORY: Reason for exam: fall, weakness. TECHNIQUE: Axial computed tomography images of the head/brain without intravenous contrast. CTDI is 35.7 mGy and DLP is 625.8 mGy-cm. Automated exposure control was utilized for the study. A dose lowering technique was utilized adhering to the principles of ALARA. COMPARISON: No relevant prior studies available. FINDINGS: No acute intracranial hemorrhage. No midline shift or mass effect. The territorial bragg-white matter differentiation is maintained throughout. Age-related cerebral volume loss. Periventricular and subcortical white matter hypoattenuation, consistent with chronic microangiopathy. The visualized orbits appear grossly unremarkable. The calvarium is intact. The visualized paranasal sinuses and mastoid air cells are grossly clear. IMPRESSION: No acute intracranial hemorrhage, midline shift, or mass effect. Electronically signed by: Rey Doyle MD 12/05/23 21:18 PM Discharge Plan Visit Data Chief Complaint: Knee Injury/Pain Stated Complaint: RIGHT KNEE PAIN ED Provider: Shannan Urbano Discharge Problem: Generalized weakness, Knee pain, Multiple falls, Acute UTI (urinary tract infection) Patient Disposition: Admitted As Inpatient Discharge Instructions Interventions: ED Discharge Assessment Last Done: 12/05/23 23:45
[2023-12-05 20:57] LABS: Basophils # (auto) 0.03 K/uL (0.00-0.20); Basophils % (auto) 0.3 %; Hematocrit (blood only) 35.1 % (37.0-47.0); Hemoglobin 11.4 g/dl (12.0-16.0); Immature Granulocytes # (auto) 0.08 K/uL (0.01-0.20); Immature Granulocytes % (auto) 0.8 %; Lymphocytes # (auto) 0.29 K/uL (1.20-3.40); Mean Corpuscular Hemoglobin 26.7 pg (25.0-34.0); Mean Corpuscular Hgb Conc 32.5 g/dL (32.0-36.0); Mean Corpuscular Volume 82.2 fL (80.0-100.0); Mean Platelet Volume 9.9 fL (9.4-12.4); Monocytes # (auto) 1.07 K/uL (0.11-0.59); Monocytes % (auto) 10.9 %; Neutrophils # (auto) 8.32 K/uL (1.40-6.50); Platelet Count 197 K/uL (130-400); RDW Coefficient of Variation 14.7 % (11.5-14.5); RDW Standard Deviation 43.7 fL (36.4-46.3); Red Blood Count 4.27 M/uL (4.20-5.40); White Blood Count 9.79 K/ul (4.8-10.8)
[2023-12-05 21:08] LABS: Albumin Globulin Ratio 1.2 (0.9-2); Albumin Level 3.4 gm/dl (3.4-5.0); BUN Creatinine Ratio 18.4 (10-20); Bilirubin,Total 0.9 mg/dl (0.2-1.0); Creatinine Clr Calc Pharmacy 28.9 ml/min; Est GFR (African American) 37.6 ml/min; Est GFR (Non-African American) 32.4 ml/min; Globulin 2.9 gm/dl (2.5-4.0); Magnesium 1.8 mg/dl (1.7-2.4); Potassium 3.6 mmol/L (3.5-5.1); Total Protein 6.3 gm/dl (6.0-8.3)
[2023-12-05 21:16] LABS: Troponin I High Sensitivity 16.7 pg/ml (0-14)
--- NOTE | 2023-12-05 21:19 | CT Scan Report ---
Exam(s): CT HEAD Without Contrast EXAM: CT Head Without Intravenous Contrast CLINICAL HISTORY: Reason for exam: fall, weakness. TECHNIQUE: Axial computed tomography images of the head/brain without intravenous contrast. CTDI is 35.7 mGy and DLP is 625.8 mGy-cm. Automated exposure control was utilized for the study. A dose lowering technique was utilized adhering to the principles of ALARA. COMPARISON: No relevant prior studies available. FINDINGS: No acute intracranial hemorrhage. No midline shift or mass effect. The territorial bragg-white matter differentiation is maintained throughout. Age-related cerebral volume loss. Periventricular and subcortical white matter hypoattenuation, consistent with chronic microangiopathy. The visualized orbits appear grossly unremarkable. The calvarium is intact. The visualized paranasal sinuses and mastoid air cells are grossly clear. IMPRESSION: No acute intracranial hemorrhage, midline shift, or mass effect. Electronically signed by: Rey Doyle MD 12/05/23 21:18 PM
[2023-12-05 21:25] LABS: Thyroid Stimulating Hormone 2.72 uIu/ml (0.300-4.500)
[2023-12-05] MEDS: SODIUM CHLORIDE 0.9% 1,000 ML IV SCH (21:26)
[2023-12-05 21:54] LABS: Appearance Urine Turbid (Clear); Bacteria Urine Automated 3+ (None Seen); Bilirubin Urine Negative (Negative); Blood Urine 2+ (Negative); Color Urine Yellow; Epithelial Cell Urine Auto 0-2 /hpf (0-2); Glucose Urine UA Negative (Negative); Ketones Urine Negative (Negative); Leukocyte Esterase Urine 3+ (Negative); Nitrite Urine Positive (Negative); Protein Urine 2+ (Negative); RBC Urine Automated 0-2 /hpf (0-2); Specific Gravity Urine 1.011 (1.000-1.030); Urobilinogen Urine Negative (Negative); WBC Urine Automated >50 /hpf (0-5); White Blood Cell Casts Urine Present /lpf (None Prsent); pH Urine 5.5 (4.5-7.5)
[2023-12-05] MEDS: cefTRIAXone SODIUM 2,000 MG/50 ML BAG IV STA (22:45)
--- NOTE | 2023-12-05 23:10 | History & Physical Report ---
Date of Service December 05, 2023 Assessment & Plan (1) Acute UTI (urinary tract infection): Plan: 83-year-old female with past medical history significant for hypertension, hypothyroidism who lives at home with her daughter who has autism and next door another daughter lives by was brought in because of falls and found to have uti. Last Sunday she seems fell in bathroom. Says didn't hit her head and no loss of consciousness. She doesn't know how she fell. With her daughters help she was able to get up. Since then has pain in the right Knee. Today while sitting on the commode she was not able to get up. Daughter was also not able to help her get up too. She was very weak. Generally ambulates with a walker. She also has a cane. And also last several days her appetite has been very down as per daughter. No fevers. No abdominal pain. Daughter also noticed some blood in her pants. She is not sure where it is coming from. Denies any chest pain. No headache. No shortness of breath. Vision is okay. No runny nose or sore throat. No earaches. Appetite is okay ,no nausea or vomiting. Currently resting comfortably and hemodynamically stable. Acute UTI ER started Rocephin which will be continued iv fluids Will follow the cultures Frequent falls Mostly from above PT OT when stable Hypertension Continue home atenolol will monitior Hypothyroidism On Synthyroid GI bleed questionable Will follow stool for Hemoccult Bleeding hemorrhoids? Will monitor DVT prophylaxis Lovenox Disposition Admit/telemetry Full code History of Present Illness Chief Complaint: Falls and UTI Primary Care Provider: Kristel Rowley MD 83-year-old female with past medical history significant for hypertension, hypothyroidism who lives at home with her daughter who has autism and next door another daughter lives by was brought in because of falls and found to have uti. Last Sunday she seems fell in bathroom. Says didn't hit her head and no loss of consciousness. She doesn't know how she fell. With her daughters help she was able to get up. Since then has pain in the right Knee. Today while sitting on the commode she was not able to get up. Daughter was also not able to help her get up too. She was very weak. Generally ambulates with a walker. She also has a cane. And also last several days her appetite has been very down as per daughter. No fevers. No abdominal pain. Daughter also noticed some blood in her pants. She is not sure where it is coming from. Denies any chest pain. No headache. No shortness of breath. Vision is okay. No runny nose or sore throat. No earaches. Appetite is okay ,no nausea or vomiting. Currently resting comfortably and hemodynamically stable. Past medical history. As mentioned above. Past surgical history. History of left hip hemiarthroplasty. Laparoscopic cholecystectomy. Hysterectomy. Social history. No smoking. No alcohol use. No substance abuse. Family history. No family history on file. Allergies Allergy/AdvReac Type Severity Reaction Status Date / Time No Known Allergies Allergy Unverified 11/14/22 05:02 Home Medications Medication Instructions Recorded Confirmed Type aspirin 81 mg tablet,delayed 81 mg PO DAILY 12/05/23 12/05/23 History release atenolol 25 mg tablet 12.5 mg PO DAILY 12/05/23 12/05/23 History levothyroxine 125 mcg tablet 125 mcg PO DAILY 12/05/23 12/05/23 History multivitamin (One Daily 1 tab PO DAILY 12/05/23 12/05/23 History Multivitamin tablet) risperidone 0.25 mg tablet 0.25 mg PO HS 12/05/23 12/05/23 History Past Med/Surg History Medical History Hypothyroid Hypertension Closed subcapital fracture of left femur Surgical History History of hemiarthroplasty of left hip Hx laparoscopic cholecystectomy Hx of hysterectomy Social History Smoking Status: Never smoker Second Hand Exposure: No; Do You Dip or Chew Tobacco: No; Hx Alcohol Use: No Hx Substance Use: No Preferred Language: Swazi Communication Ability: Effective Slurry Tank Tender Required: No Beliefs That Will Affect Care: None Current Living Situation: Family Current Living Situation Comment: one child lives in same home, one lives next door Other Information That Helps Us Care for You: No Feels Safe at Home: Yes Safety Concerns: Feels Safe At This Time Assistive Devices: Cane, Denture - Upper, Glasses and Walker Review of Systems Review of Systems: All systems reviewed & are unremarkable except as noted in HPI & below Physical Exam Physical Exam: General- Not in distress Head- atraumatic Eyes- PERRL. ENT- oropharynx clear Neck- supple, no JVD. Lungs- clear to auscultation no wheezing or crackles. Heart- regular rhythm; no murmur, no gallop. Abdomen- normal bowel sounds, soft, nontender, no distension. Extremities- no pretibial edema, no erythema seen Neuro- alert, oriented x 3; PERRL, no facial palsy; no dysarthria; moves extremities. Results & Data Results & Data Vital Signs (Past 12 Hours) Vital Signs Temp Pulse Pulse Resp BP BP Pulse Ox 12/05/23 19:18 37.6 C 77 17 111/72 95 12/05/23 19:18 37.6 C 80 17 111/72 91 O2 Del Method 12/05/23 19:18 Room Air 12/05/23 19:18 Room Air Diagnostic Findings Laboratory Results WBC 9.79 K/ul (4.8-10.8) 12/05/23 20:24 RBC 4.27 M/uL (4.20-5.40) 12/05/23 20:24 Hgb 11.4 g/dl (12.0-16.0) L 12/05/23 20:24 Hct 35.1 % (37.0-47.0) L 12/05/23 20:24 MCV 82.2 fL (80.0-100.0) 12/05/23 20:24 MCH 26.7 pg (25.0-34.0) 12/05/23 20:24 MCHC 32.5 g/dL (32.0-36.0) 12/05/23 20:24 RDW Std Deviation 43.7 fL (36.4-46.3) 12/05/23 20:24 RDW Coeff of Adam 14.7 % (11.5-14.5) H 12/05/23 20:24 Plt Count 197 K/uL (130-400) 12/05/23 20:24 MPV 9.9 fL (9.4-12.4) 12/05/23 20:24 Immature Gran % (Auto) 0.8 % 12/05/23 20:24 Neut % (Auto) 85.0 % 12/05/23 20:24 Lymph % (Auto) 3.0 % 12/05/23 20:24 [place] % (Auto) 10.9 % 12/05/23 20:24 Eos % (Auto) 0.0 % 12/05/23 20:24 Baso % (Auto) 0.3 % 12/05/23 20:24 Neut # (Auto) 8.32 K/uL (1.40-6.50) H 12/05/23 20:24 Lymph # (Auto) 0.29 K/uL (1.20-3.40) L 12/05/23 20:24 [place] # (Auto) 1.07 K/uL (0.11-0.59) H 12/05/23 20:24 Eos # (Auto) 0.00 K/uL (0.00-0.50) 12/05/23 20:24 Baso # (Auto) 0.03 K/uL (0.00-0.20) 12/05/23 20:24 Immature Gran # (Auto) 0.08 K/uL (0.01-0.20) 12/05/23 20:24 Sodium 138 mmol/L (136-145) 12/05/23 20:24 Potassium 3.6 mmol/L (3.5-5.1) 12/05/23 20:24 Chloride 108 mmol/L (98-107) H 12/05/23 20:24 Carbon Dioxide 21 mmol/L (21-32) 12/05/23 20:24 Anion Gap 9 (3-11) 12/05/23 20:24 BUN 27 mg/dl (6-23) H 12/05/23 20:24 Creatinine 1.47 mg/dl (0.6-1.2) H 12/05/23 20:24 Est Cr Clr Drug Dosing 28.9 ml/min 12/05/23 20:24 Est GFR ( Amer) 37.6 ml/min 12/05/23 20:24 Est GFR (Non-Af Amer) 32.4 ml/min 12/05/23 20:24 BUN/Creatinine Ratio 18.4 (10-20) 12/05/23 20:24 Glucose 128 mg/dl (70-99(Fasting)) H 12/05/23 20:24 Calcium 9.0 mg/dl (8.6-10.3) 12/05/23 20:24 Magnesium 1.8 mg/dl (1.7-2.4) 12/05/23 20:24 Total Bilirubin 0.9 mg/dl (0.2-1.0) 12/05/23 20:24 AST 19 U/L (13-39) 12/05/23 20:24 ALT 14 U/L (7-52) 12/05/23 20:24 Alkaline Phosphatase 98 U/L (34-104) 12/05/23 20:24 Troponin I High Sens 16.7 pg/ml (0-14) H 12/05/23 20:24 Total Protein 6.3 gm/dl (6.0-8.3) 12/05/23 20:24 Albumin 3.4 gm/dl (3.4-5.0) 12/05/23 20:24 Globulin 2.9 gm/dl (2.5-4.0) 12/05/23 20:24 Albumin/Globulin Ratio 1.2 (0.9-2) 12/05/23 20:24 Lipase 12 U/L (11-82) 12/05/23 20:24 TSH 2.720 uIu/ml (0.300-4.500) 12/05/23 20:24 Urine Color Yellow 12/05/23 21:14 Urine Appearance Turbid (Clear) A 12/05/23 21:14 Urine pH 5.5 (4.5-7.5) 12/05/23 21:14 Ur Specific [place] 1.011 (1.000-1.030) 12/05/23 21:14 Urine Protein 2+ (Negative) H 12/05/23 21:14 Urine Glucose (UA) Negative (Negative) 12/05/23 21:14 Urine Ketones Negative (Negative) 12/05/23 21:14 Urine Blood 2+ (Negative) H 12/05/23 21:14 Urine Nitrite Positive (Negative) A 12/05/23 21:14 Urine Bilirubin Negative (Negative) 12/05/23 21:14 Urine Urobilinogen Negative (Negative) 12/05/23 21:14 Ur Leukocyte Esterase 3+ (Negative) H 12/05/23 21:14 Urine WBC (Auto) >50 /hpf (0-5) H 12/05/23 21:14 Urine RBC (Auto) 0-2 /hpf (0-2) 12/05/23 21:14 U Hyaline Cast (Auto) 11-20 /lpf (0-2) H 12/05/23 21:14 U Epithel Cells (Auto) 0-2 /hpf (0-2) 12/05/23 21:14 Urine Bacteria (Auto) 3+ (None Seen) H 12/05/23 21:14 WBC Casts Present /lpf (None Prsent) A 12/05/23 21:[address] 12/05/23 20:21 Exam(s): CT HEAD Without Contrast EXAM: CT Head Without Intravenous Contrast CLINICAL HISTORY: Reason for exam: fall, weakness. TECHNIQUE: Axial computed tomography images of the head/brain without intravenous contrast. CTDI is 35.7 mGy and DLP is 625.8 mGy-cm. Automated exposure control was utilized for the study. A dose lowering technique was utilized adhering to the principles of ALARA. COMPARISON: No relevant prior studies available. FINDINGS: No acute intracranial hemorrhage. No midline shift or mass effect. The territorial bragg-white matter differentiation is maintained throughout. Age-related cerebral volume loss. Periventricular and subcortical white matter hypoattenuation, consistent with chronic microangiopathy. The visualized orbits appear grossly unremarkable. The calvarium is intact. The visualized paranasal sinuses and mastoid air cells are grossly clear. IMPRESSION: No acute intracranial hemorrhage, midline shift, or mass effect. Electronically signed by: Rey Doyle MD 12/05/23 21:18 PM ECG Additional Comments: ECG. Normal sinus rhythm at a rate of 73. No acute ST changes seen. Code Status & VTE Plan VTE Prophylaxis Plan VTE Prophylaxis will be ordered: Yes
[2023-12-06] MEDS ORDERED: NITROGLYCERIN SL 0.4 MG/TAB TAB SL PRN (00:22)
[2023-12-06] MEDS: D5W AND NSS 1,000 ML IV SCH (01:15)
[2023-12-06] MEDS: ENOXAPARIN INJ 30 MG/0.3 ML SYR SQ SCH (03:12)
[2023-12-06] MEDS: LEVOTHYROXINE SODIUM 125 MCG TABLET PO SCH (06:11)
--- NOTE | 2023-12-06 06:58 | XRay Report ---
XR knee RT 1 or 2V routine CLINICAL HISTORY: trauma COMPARISON: None FINDINGS: No acute fracture is identified. There is a small joint effusion. There is severe right kn ee osteoarthritis, most pronounced within the lateral and patellofemoral compartments. There is mild valgus deformity. Right knee soft tissue swelling is present. IMPRESSION: 1. No fractures within the right knee. Small right knee joint effusion. 2. Severe tricompartmental right knee osteoarthritis. ACT 112: Negative or not required by law. Electronically signed by: Micky Campo M.D. 12/06/2023 6:56 AM
--- NOTE | 2023-12-06 07:00 | XRay Report ---
XR chest 1V portable CLINICAL HISTORY: trauma COMPARISON STUDY: Chest radiograph December 08, 2022. FINDINGS: There is no pneumothorax or pleural effusion. No consolidation is present. Cardiomegaly is unchanged. There is mild interstitial thickening. A large hiatal hernia is again noted. Thoracic spin e dextroscoliosis is similar to prior exam. IMPRESSION: 1. Mild interstitial pulmonary edema. 2. No pneumothorax. 3. Large hiatal hernia. ACT 112: Negative or not required by law. Electronically signed by: Micky Campo M.D. 12/06/2023 6:59 AM
--- NOTE | 2023-12-06 07:03 | XRay Report ---
XR tibia fibula RT 2V CLINICAL HISTORY: trauma COMPARISON: None FINDINGS: There is no fracture within the right tibia or fibula. Alignment of the right knee and rig ht ankle is anatomic. Severe right knee osteoarthritis is most pronounced within the lateral compartm ent. 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 IMPRESSION: No fractures within the right tibia or fibula. ACT 112: Negative or not required by law. Electronically signed by: Micky Campo M.D. 12/06/2023 7:02 AM
[2023-12-06 07:40] LABS: Basophils # (auto) 0.02 K/uL (0.00-0.20); Basophils % (auto) 0.2 %; Eosinophils # (auto) 0.04 K/uL (0.00-0.50); Eosinophils % (auto) 0.5 %; Hematocrit (blood only) 37.4 % (37.0-47.0); Immature Granulocytes # (auto) 0.06 K/uL (0.01-0.20); Immature Granulocytes % (auto) 0.7 %; Lymphocytes # (auto) 0.53 K/uL (1.20-3.40); Lymphocytes % (auto) 6.4 %; Mean Corpuscular Hemoglobin 26.8 pg (25.0-34.0); Mean Corpuscular Hgb Conc 32.1 g/dL (32.0-36.0); Mean Corpuscular Volume 83.7 fL (80.0-100.0); Mean Platelet Volume 10.1 fL (9.4-12.4); Monocytes # (auto) 1.15 K/uL (0.11-0.59); Neutrophils # (auto) 6.44 K/uL (1.40-6.50); Neutrophils % (auto) 78.2 %; Platelet Count 188 K/uL (130-400); RDW Coefficient of Variation 14.6 % (11.5-14.5); RDW Standard Deviation 44.7 fL (36.4-46.3); Red Blood Count 4.47 M/uL (4.20-5.40); White Blood Count 8.24 K/ul (4.8-10.8)
[2023-12-06 07:42] LABS: BUN Creatinine Ratio 16.9 (10-20); Calcium 8.4 mg/dl (8.6-10.3); Creatinine Clr Calc Pharmacy 28.8 ml/min; Est GFR (African American) 41.3 ml/min; Est GFR (Non-African American) 35.6 ml/min; Magnesium 1.8 mg/dl (1.7-2.4); Potassium 3.4 mmol/L (3.5-5.1)
--- NOTE | 2023-12-06 07:47 | XRay Report ---
XR pelvis 1-2V routine CLINICAL HISTORY: Trauma. COMPARISON: Pelvis radiograph November 15, 2022. FINDINGS: Sacroiliac joints and symphysis pubis are intact. Visualized portions of the left hip arth roplasty are intact. There is heterotopic ossification adjacent to the greater tuberosity. There are no fractures within the pelvis or hips. A few calcifications, measuring up to 1.1 cm, project over th e right mid abdomen. IMPRESSION: 1. No fractures within the pelvis or hips. 2. Anatomic alignment of the left hip arthroplasty. No periprosthetic fracture although distal portio n of femoral component is not imaged. ACT 112: Negative or not required by law. Electronically signed by: Micky Campo M.D. 12/06/2023 7:45 AM
--- NOTE | 2023-12-06 08:03 | Hospitalist Progress Note ---
Date of Service December 06, 2023 Assessment & Plan (1) Acute UTI (urinary tract infection): Plan: 83 yo F with past medical history significant for hypertension, hypothyroidism who lives at home with her daughter who has autism and next door another daughter lives by was brought in because of falls and found to have uti. Last Sunday she seems fell in bathroom. Says didn't hit her head and no loss of consciousness. She doesn't know how she fell. With her daughters help she was able to get up. Since then has pain in the right Knee. Today while sitting on the commode she was not able to get up. Daughter was also not able to help her get up too. She was very weak. Generally ambulates with a walker. She also has a cane. And also last several days her appetite has been very down as per daughter. No fevers. No abdominal pain. Daughter also noticed some blood in her pants. She is not sure where it is coming from. Denies any chest pain. No headache. No shortness of breath. Vision is okay. No runny nose or sore throat. No earaches. Appetite is okay ,no nausea or vomiting. Currently resting comfortably and hemodynamically stable. Acute UTI ER started Rocephin which will be continued iv fluids Will follow the cultures Frequent falls Mostly from above PT OT when stable Hypertension Continue home atenolol will monitior Hypothyroidism On Synthyroid GI bleed questionable stool for Hemoccult negative Bleeding hemorrhoids? Will monitor DVT prophylaxis Lovenox Disposition Admit/telemetry Full code Admission and Anticipated Discharge Date Admission Date: December 05, 2023 Subjective Pt seen in follow up of falls, UTI Concern for poss. GI bleed per family - FOBT negative Currently laying in bed in NAD Reports feeling well. Denies any fevers chills, chest pain shortness of breath, abdominal pain. She says that she only felt weak and could not get up yesterday therefore they called ambulance for her. Denies any dysuria or urinary frequency. Review of Systems Review of Systems: All systems reviewed & are unremarkable except as noted in Subjective Physical Exam Physical Exam: General- WD/WN elderly F in NAD Head- NC/AT Eyes- PERRL. Neck- supple, no JVD. Lungs- clear to auscultation no wheezing or crackles. Heart- regular rhythm; no murmur, no gallop. Abdomen- normal bowel sounds, soft, nontender, no distension. Extremities- no pretibial edema, no erythema seen Neuro- alert, oriented x 3; PERRL, no facial palsy; no dysarthria; moves extremities. Results & Data Results & Data Vital Signs (Past 12 Hours) Vital Signs Temp Pulse Pulse Resp BP BP Pulse Ox 12/06/23 07:57 70 12/06/23 04:54 36.6 C 71 18 163/91 H 92 12/06/23 00:37 70 12/06/23 00:15 12/06/23 00:15 36.6 C 70 18 157/76 H 95 12/05/23 23:33 72 20 152/97 H 99 12/05/23 23:30 72 O2 Del Method O2 Flow Rate 12/06/23 07:57 12/06/23 04:54 Room Air 12/06/23 00:37 12/06/23 00:15 Room Air 12/06/23 00:15 Room Air 12/05/23 23:33 Nasal Cannula 2 12/05/23 23:30 Laboratory Results 12/06/23 12/06/23 12/05/23 Range/Units 07:08 06:25 21:14 WBC 8.24 (4.8-10.8) K/ul RBC 4.47 (4.20-5.40) M/uL Hgb 12.0 (12.0-16.0) g/dl Hct 37.4 (37.0-47.0) % MCV 83.7 (80.0-100.0) fL MCH 26.8 (25.0-34.0) pg MCHC 32.1 (32.0-36.0) g/dL RDW Std Deviation 44.7 (36.4-46.3) fL RDW Coeff of Adam 14.6 H (11.5-14.5) % Plt Count 188 (130-400) K/uL MPV 10.1 (9.4-12.4) fL Immature Gran % (Auto) 0.7 % Neut % (Auto) 78.2 % Lymph % (Auto) 6.4 % [place] % (Auto) 14.0 % Eos % (Auto) 0.5 % Baso % (Auto) 0.2 % Neut # (Auto) 6.44 (1.40-6.50) K/uL Lymph # (Auto) 0.53 L (1.20-3.40) K/uL [place] # (Auto) 1.15 H (0.11-0.59) K/uL Eos # (Auto) 0.04 (0.00-0.50) K/uL Baso # (Auto) 0.02 (0.00-0.20) K/uL Immature Gran # (Auto) 0.06 (0.01-0.20) K/uL Sodium 143 (136-145) mmol/L Potassium 3.4 L (3.5-5.1) mmol/L Chloride 111 H (98-107) mmol/L Carbon Dioxide 24 (21-32) mmol/L Anion Gap 8 (3-11) BUN 23 (6-23) mg/dl Creatinine 1.36 H (0.6-1.2) mg/dl Est Cr Clr Drug Dosing 28.8 ml/min Est GFR ( Amer) 41.3 ml/min Est GFR (Non-Af Amer) 35.6 ml/min BUN/Creatinine Ratio 16.9 (10-20) Glucose 118 H (70-99(Fasting)) mg/dl Calcium 8.4 L (8.6-10.3) mg/dl Magnesium 1.8 (1.7-2.4) mg/dl Total Bilirubin (0.2-1.0) mg/dl AST (13-39) U/L ALT (7-52) U/L Alkaline Phosphatase (34-104) U/L Troponin I High Sens (0-14) pg/ml Total Protein (6.0-8.3) gm/dl Albumin (3.4-5.0) gm/dl Globulin (2.5-4.0) gm/dl Albumin/Globulin Ratio (0.9-2) Lipase (11-82) U/L TSH (0.300-4.500) uIu/ml Urine Color Yellow Urine Appearance Turbid A (Clear) Urine pH 5.5 (4.5-7.5) Ur Specific [place] 1.011 (1.000-1.030) Urine Protein 2+ H (Negative) Urine Glucose (UA) Negative (Negative) Urine Ketones Negative (Negative) Urine Blood 2+ H (Negative) Urine Nitrite Positive A (Negative) Urine Bilirubin Negative (Negative) Urine Urobilinogen Negative (Negative) Ur Leukocyte Esterase 3+ H (Negative) Urine WBC (Auto) >50 H (0-5) /hpf Urine RBC (Auto) 0-2 (0-2) /hpf U Hyaline Cast (Auto) 11-20 H (0-2) /lpf U Epithel Cells (Auto) 0-2 (0-2) /hpf Urine Bacteria (Auto) 3+ H (None Seen) WBC Casts Present A (None Prsent) /lpf Stool Occult Bld Scrn Negative (Negative) 12/05/23 Range/Units 20:24 WBC 9.79 (4.8-10.8) K/ul RBC 4.27 (4.20-5.40) M/uL Hgb 11.4 L (12.0-16.0) g/dl Hct 35.1 L (37.0-47.0) % MCV 82.2 (80.0-100.0) fL MCH 26.7 (25.0-34.0) pg MCHC 32.5 (32.0-36.0) g/dL RDW Std Deviation 43.7 (36.4-46.3) fL RDW Coeff of Adam 14.7 H (11.5-14.5) % Plt Count 197 (130-400) K/uL MPV 9.9 (9.4-12.4) fL Immature Gran % (Auto) 0.8 % Neut % (Auto) 85.0 % Lymph % (Auto) 3.0 % [place] % (Auto) 10.9 % Eos % (Auto) 0.0 % Baso % (Auto) 0.3 % Neut # (Auto) 8.32 H (1.40-6.50) K/uL Lymph # (Auto) 0.29 L (1.20-3.40) K/uL [place] # (Auto) 1.07 H (0.11-0.59) K/uL Eos # (Auto) 0.00 (0.00-0.50) K/uL Baso # (Auto) 0.03 (0.00-0.20) K/uL Immature Gran # (Auto) 0.08 (0.01-0.20) K/uL Sodium 138 (136-145) mmol/L Potassium 3.6 (3.5-5.1) mmol/L Chloride 108 H (98-107) mmol/L Carbon Dioxide 21 (21-32) mmol/L Anion Gap 9 (3-11) BUN 27 H (6-23) mg/dl Creatinine 1.47 H (0.6-1.2) mg/dl Est Cr Clr Drug Dosing 28.9 ml/min Est GFR ( Amer) 37.6 ml/min Est GFR (Non-Af Amer) 32.4 ml/min BUN/Creatinine Ratio 18.4 (10-20) Glucose 128 H (70-99(Fasting)) mg/dl Calcium 9.0 (8.6-10.3) mg/dl Magnesium 1.8 (1.7-2.4) mg/dl Total Bilirubin 0.9 (0.2-1.0) mg/dl AST 19 (13-39) U/L ALT 14 (7-52) U/L Alkaline Phosphatase 98 (34-104) U/L Troponin I High Sens 16.7 H (0-14) pg/ml Total Protein 6.3 (6.0-8.3) gm/dl Albumin 3.4 (3.4-5.0) gm/dl Globulin 2.9 (2.5-4.0) gm/dl Albumin/Globulin Ratio 1.2 (0.9-2) Lipase 12 (11-82) U/L TSH 2.720 (0.300-4.500) uIu/ml Urine Color Urine Appearance (Clear) Urine pH (4.5-7.5) Ur Specific [place] (1.000-1.030) Urine Protein (Negative) Urine Glucose (UA) (Negative) Urine Ketones (Negative) Urine Blood (Negative) Urine Nitrite (Negative) Urine Bilirubin (Negative) Urine Urobilinogen (Negative) Ur Leukocyte Esterase (Negative) Urine WBC (Auto) (0-5) /hpf Urine RBC (Auto) (0-2) /hpf U Hyaline Cast (Auto) (0-2) /lpf U Epithel Cells (Auto) (0-2) /hpf Urine Bacteria (Auto) (None Seen) WBC Casts (None Prsent) /lpf Stool Occult Bld Scrn (Negative) Medications Administered Current Inpatient Medications Acetaminophen (Acetaminophen 325 Mg Tab) 650 mg PO Q4H PRN PRN Reason: Pain or Fever Stop: 01/05/24 00:21 Aspirin (Aspirin 81 Mg Ectab) 81 mg PO DAILY NATHAN Stop: 01/05/24 08:59 Atenolol (Atenolol 25 Mg Tablet) 12.5 mg PO DAILY NATHAN Stop: 01/05/24 08:59 Enoxaparin Sodium (Enoxaparin Inj 30 Mg/0.3 Ml Syr) 30 mg SQ HS NATHAN Stop: 01/05/24 00:44 Last Admin: 12/06/23 03:12 Dose: 30 mg Dextrose/Sodium Chloride (D5w And Nss) 1,000 mls @ 100 mls/hr IV .Q10H NATHAN Stop: 01/05/24 00:21 Last Admin: 12/06/23 01:15 Dose: 100 mls/hr Ceftriaxone Sodium (Rocephin) 2,000 mg in 50 mls @ 100 mls/hr IV Q24H NATHAN Stop: 12/16/23 21:59 Levothyroxine Sodium (Levothyroxine Sodium 125 Mcg Tablet) 125 mcg PO DAILYBB NATHAN Stop: 01/05/24 06:29 Last Admin: 12/06/23 06:11 Dose: 125 mcg Multivitamins (Multivitamin Tab) 1 tab PO DAILY NATHAN Stop: 01/05/24 08:59 Nitroglycerin (Nitroglycerin Sl 0.4 Mg/Tab Tab) 0.4 mg SL Q5M PRN PRN Reason: Chest Pain Stop: 01/05/24 00:21 Risperidone (Risperidone 0.25 Mg Tab) 0.25 mg PO HS NATHAN Stop: 01/05/24 20:59
[2023-12-06] MEDS: POTASSIUM CHLORIDE CRTAB 20 MEQ TABCR PO STA (08:14)
[2023-12-06] MEDS: ATENOLOL 25 MG TABLET PO SCH (08:15)
[2023-12-06] MEDS: MULTIVITAMIN TAB PO SCH (08:15)
[2023-12-06] MEDS: ASPIRIN 81 MG ECTAB PO SCH (08:15)
[2023-12-06] MEDS: risperiDONE 0.25 MG TAB PO SCH (21:02)
[2023-12-06] MEDS: cefTRIAXone SODIUM 2,000 MG/50 ML BAG IV SCH (21:02)
[2023-12-07 06:56] LABS: Hemoglobin 11.9 g/dl (12.0-16.0); Mean Corpuscular Hemoglobin 26.9 pg (25.0-34.0); Mean Corpuscular Hgb Conc 32.2 g/dL (32.0-36.0); Mean Corpuscular Volume 83.5 fL (80.0-100.0); Platelet Count 187 K/uL (130-400); RDW Coefficient of Variation 14.6 % (11.5-14.5); RDW Standard Deviation 44.1 fL (36.4-46.3); Red Blood Count 4.43 M/uL (4.20-5.40); White Blood Count 7.42 K/ul (4.8-10.8)
[2023-12-07 07:19] LABS: BUN Creatinine Ratio 12.8 (10-20); Calcium 8.4 mg/dl (8.6-10.3); Creatinine Clr Calc Pharmacy 33.5 ml/min; Est GFR (African American) 49.6 ml/min; Est GFR (Non-African American) 42.8 ml/min; Phosphorus 3.2 mg/dl (2.5-4.9); Potassium 3.6 mmol/L (3.5-5.1)
[2023-12-07 08:40] LABS: Magnesium 1.7 mg/dl (1.7-2.4)
--- NOTE | 2023-12-07 10:15 | Hospitalist Progress Note ---
Date of Service December 07, 2023 Assessment & Plan (1) Acute UTI (urinary tract infection): Plan: 83 yo F with past medical history significant for hypertension, hypothyroidism who lives at home with her daughter who has autism and next door another daughter lives by was brought in because of falls and found to have uti. Last Sunday she seems fell in bathroom. Says didn't hit her head and no loss of consciousness. She doesn't know how she fell. With her daughters help she was able to get up. Since then has pain in the right Knee. Today while sitting on the commode she was not able to get up. Daughter was also not able to help her get up too. She was very weak. Generally ambulates with a walker. She also has a cane. And also last several days her appetite has been very down as per daughter. No fevers. No abdominal pain. Daughter also noticed some blood in her pants. She is not sure where it is coming from. Denies any chest pain. No headache. No shortness of breath. Vision is okay. No runny nose or sore throat. No earaches. Appetite is okay ,no nausea or vomiting. Currently resting comfortably and hemodynamically stable. Acute UTI Rocephin iv fluids Follow the cultures Frequent falls Mostly from above PT OT - ok to return home, CM involved as well Hypertension Continue home atenolol will monitior Hypothyroidism On Synthyroid GI bleed questionable stool for Hemoccult negative Bleeding hemorrhoids? Will monitor DVT prophylaxis Lovenox Disposition - telemetry Full code Admission and Anticipated Discharge Date Admission Date: December 05, 2023 Subjective Pt seen in follow up of falls, UTI Concern for poss. GI bleed per family - FOBT negative Currently sitting up in chair in NAD Reports feeling well. Denies any fevers chills, chest pain shortness of breath, abdominal pain. Reports feeling much better, and ambulating. Denies any dysuria or urinary frequency. Review of Systems Review of Systems: All systems reviewed & are unremarkable except as noted in Subjective Physical Exam Physical Exam: General- WD/WN elderly F in NAD Head- NC/AT Eyes- PERRL. Neck- supple, no JVD. Lungs- clear to auscultation no wheezing or crackles. Heart- regular rhythm; no murmur, no gallop. Abdomen- normal bowel sounds, soft, nontender, no distension. Extremities- no pretibial edema, no erythema seen Neuro- alert, oriented x 3; PERRL, no facial palsy; no dysarthria; moves extremities. Results & Data Results & Data Vital Signs (Past 12 Hours) Vital Signs Temp Pulse Pulse Resp BP BP Pulse Ox 12/07/23 09:45 60 12/07/23 07:19 36.6 C 72 18 163/92 H 97 12/07/23 04:19 36.7 C 66 18 141/66 H 95 12/06/23 23:38 36.7 C 72 20 151/77 H 94 O2 Del Method 12/07/23 09:45 12/07/23 07:19 Room Air 12/07/23 04:19 Room Air 12/06/23 23:38 Room Air Laboratory Results 12/07/23 Range/Units 06:15 WBC 7.42 (4.8-10.8) K/ul RBC 4.43 (4.20-5.40) M/uL Hgb 11.9 L (12.0-16.0) g/dl Hct 37.0 (37.0-47.0) % MCV 83.5 (80.0-100.0) fL MCH 26.9 (25.0-34.0) pg MCHC 32.2 (32.0-36.0) g/dL RDW Std Deviation 44.1 (36.4-46.3) fL RDW Coeff of Adam 14.6 H (11.5-14.5) % Plt Count 187 (130-400) K/uL MPV 10.0 (9.4-12.4) fL Sodium 143 (136-145) mmol/L Potassium 3.6 (3.5-5.1) mmol/L Chloride 114 H (98-107) mmol/L Carbon Dioxide 21 (21-32) mmol/L Anion Gap 8 (3-11) BUN 15 (6-23) mg/dl Creatinine 1.17 (0.6-1.2) mg/dl Est Cr Clr Drug Dosing 33.5 ml/min Est GFR ( Amer) 49.6 ml/min Est GFR (Non-Af Amer) 42.8 ml/min BUN/Creatinine Ratio 12.8 (10-20) Glucose 104 H (70-99(Fasting)) mg/dl Calcium 8.4 L (8.6-10.3) mg/dl Phosphorus 3.2 (2.5-4.9) mg/dl Magnesium 1.7 (1.7-2.4) mg/dl Medications Administered Current Inpatient Medications Acetaminophen (Acetaminophen 325 Mg Tab) 650 mg PO Q4H PRN PRN Reason: Pain or Fever Stop: 01/05/24 00:21 Aspirin (Aspirin 81 Mg Ectab) 81 mg PO DAILY NATHAN Stop: 01/05/24 08:59 Last Admin: 12/07/23 08:01 Dose: 81 mg Atenolol (Atenolol 25 Mg Tablet) 12.5 mg PO DAILY NATHAN Stop: 01/05/24 08:59 Last Admin: 12/07/23 08:01 Dose: 12.5 mg Enoxaparin Sodium (Enoxaparin Inj 30 Mg/0.3 Ml Syr) 30 mg SQ HS NATHAN Stop: 01/05/24 00:44 Last Admin: 12/06/23 21:02 Dose: 30 mg Dextrose/Sodium Chloride (D5w And Nss) 1,000 mls @ 100 mls/hr IV .Q10H NATHAN Stop: 01/05/24 00:21 Last Admin: 12/07/23 08:01 Dose: 100 mls/hr Ceftriaxone Sodium (Rocephin) 2,000 mg in 50 mls @ 100 mls/hr IV Q24H NATHAN Stop: 12/16/23 21:59 Last Infusion: 12/06/23 22:01 Dose: Infused Levothyroxine Sodium (Levothyroxine Sodium 125 Mcg Tablet) 125 mcg PO DAILYBB NATHAN Stop: 01/05/24 06:29 Last Admin: 12/07/23 05:28 Dose: 125 mcg Multivitamins (Multivitamin Tab) 1 tab PO DAILY NATHAN Stop: 01/05/24 08:59 Last Admin: 12/07/23 08:01 Dose: 1 tab Nitroglycerin (Nitroglycerin Sl 0.4 Mg/Tab Tab) 0.4 mg SL Q5M PRN PRN Reason: Chest Pain Stop: 01/05/24 00:21 Risperidone (Risperidone 0.25 Mg Tab) 0.25 mg PO HS NATHAN Stop: 01/05/24 20:59 Last Admin: 12/06/23 21:02 Dose: 0.25 mg
[2023-12-07] MEDS: MAGNESIUM SULFATE / D5W 1 GM/100 ML BAG IV ONE (11:12)
[2023-12-07] MEDS: ACETAMINOPHEN 325 MG TAB PO PRN (11:13)
--- NOTE | 2023-12-08 05:52 | Electrocardiogram Report ---
Test Reason : Blood Pressure : / mmHG Vent. Rate : 073 BPM Atrial Rate : 073 BPM P-R Int : 152 ms QRS Dur : 094 ms QT Int : 404 ms P-R-T Axes : 058 075 053 degrees QTc Int : 445 ms Normal sinus rhythm Septal infarct , age undetermined Abnormal ECG When compared with ECG of 08-DEC-2022 17:28, Septal infarct is now Present Confirmed by Alber Erwin ([id number]) on 12/08/2023 5:51:32 AM Referred By: REFERRED SELF Confirmed By:Alber Erwin
[2023-12-08 07:03] LABS: Hematocrit (blood only) 38.8 % (37.0-47.0); Hemoglobin 12.6 g/dl (12.0-16.0); Mean Corpuscular Hemoglobin 26.7 pg (25.0-34.0); Mean Corpuscular Hgb Conc 32.5 g/dL (32.0-36.0); Mean Corpuscular Volume 82.2 fL (80.0-100.0); Mean Platelet Volume 9.8 fL (9.4-12.4); Platelet Count 225 K/uL (130-400); RDW Coefficient of Variation 14.3 % (11.5-14.5); RDW Standard Deviation 42.5 fL (36.4-46.3); Red Blood Count 4.72 M/uL (4.20-5.40); White Blood Count 8.26 K/ul (4.8-10.8)
[2023-12-08 07:15] LABS: BUN Creatinine Ratio 11.5 (10-20); Calcium 9.3 mg/dl (8.6-10.3); Creatinine Clr Calc Pharmacy 32.1 ml/min; Est GFR (African American) 47.1 ml/min; Est GFR (Non-African American) 40.6 ml/min; Magnesium 1.9 mg/dl (1.7-2.4); Phosphorus 3.6 mg/dl (2.5-4.9); Potassium 3.6 mmol/L (3.5-5.1)
--- NOTE | 2023-12-08 12:43 | Discharge Summary ---
Date of Service December 08, 2023 Admission HPI Per Admitting Provider 83-year-old female with past medical history significant for hypertension, hypothyroidism who lives at home with her daughter who has autism and next door another daughter lives by was brought in because of falls and found to have uti. Last Sunday she seems fell in bathroom. Says didn't hit her head and no loss of consciousness. She doesn't know how she fell. With her daughters help she was able to get up. Since then has pain in the right Knee. Today while sitting on the commode she was not able to get up. Daughter was also not able to help her get up too. She was very weak. Generally ambulates with a walker. She also has a cane. And also last several days her appetite has been very down as per daughter. No fevers. No abdominal pain. Daughter also noticed some blood in her pants. She is not sure where it is coming from. Denies any chest pain. No headache. No shortness of breath. Vision is okay. No runny nose or sore throat. No earaches. Appetite is okay ,no nausea or vomiting. Currently resting comfortably and hemodynamically stable. Past medical history. As mentioned above. Past surgical history. History of left hip hemiarthroplasty. Laparoscopic cholecystectomy. Hysterectomy. Social history. No smoking. No alcohol use. No substance abuse. Family history. No family history on file. Admission Exam Per Admitting Provider General- Not in distress Head- atraumatic Eyes- PERRL. ENT- oropharynx clear Neck- supple, no JVD. Lungs- clear to auscultation no wheezing or crackles. Heart- regular rhythm; no murmur, no gallop. Abdomen- normal bowel sounds, soft, nontender, no distension. Extremities- no pretibial edema, no erythema seen Neuro- alert, oriented x 3; PERRL, no facial palsy; no dysarthria; moves extremities. Principal Diagnosis UTI Fall BARRY Discharge Exam General- WD/WN elderly F in NAD Head- NC/AT Eyes- PERRL. Neck- supple, no JVD. Lungs- clear to auscultation no wheezing or crackles. Heart- regular rhythm; no murmur, no gallop. Abdomen- normal bowel sounds, soft, nontender, no distension. Extremities- no pretibial edema, no erythema seen Neuro- alert, oriented x 3; PERRL, no facial palsy; no dysarthria; moves extremities. Discharge Data Allergies Allergy/AdvReac Type Severity Reaction Status Date / Time No Known Allergies Allergy Unverified 11/14/22 05:02 Consultations 12/05/23 22:14 ED Decision to Admit Stat Ordered Studies 12/05/23 20:21 CT head/brain wo con Stat FINDINGS: No acute intracranial hemorrhage. No midline shift or mass effect. The territorial bragg-white matter differentiation is maintained throughout. Age-related cerebral volume loss. Periventricular and subcortical white matter hypoattenuation, consistent with chronic microangiopathy. The visualized orbits appear grossly unremarkable. The calvarium is intact. The visualized paranasal sinuses and mastoid air cells are grossly clear. IMPRESSION: No acute intracranial hemorrhage, midline shift, or mass effect. Hospital Course (1) Acute UTI (urinary tract infection): 83 yo F with past medical history significant for hypertension, hypothyroidism who lives at home with her daughter who has autism and next door another daughter lives by was brought in because of falls and found to have uti. Last Sunday she seems fell in bathroom. Says didn't hit her head and no loss of consciousness. She doesn't know how she fell. With her daughters help she was able to get up. Since then has pain in the right Knee. Today while sitting on the commode she was not able to get up. Daughter was also not able to help her get up too. She was very weak. Generally ambulates with a walker. She also has a cane. And also last several days her appetite has been very down as per daughter. No fevers. No abdominal pain. Daughter also noticed some blood in her pants. She is not sure where it is coming from. Denies any chest pain. No headache. No shortness of breath. Vision is okay. No runny nose or sore throat. No earaches. Appetite is okay ,no nausea or vomiting. Currently resting comfortably and hemodynamically stable. Acute UTI Rocephin iv fluids Urine culture posit. for e.coli - switch to PO cefuroxime on discharge Frequent falls Mostly from above PT OT - recommend to return home, CM involved as well Hypertension Continue home atenolol cont. to monitior Hypothyroidism On Synthyroid GI bleed questionable stool for Hemoccult negative Bleeding hemorrhoids? Will monitor Hgb stable, current hgb 12.6 Total Time Total Time Spent Total Time Spent (In Minutes): 40 Discharge Plan Discharge Items Patient Disposition: Home - Self-Care Reason For Visit: FALL, BARRY, UTI Discharge Diagnosis: UTI Fall BARRY Activity: Per Instructions section Non-emergency contact: Primary Care Provider Call non-emergency contact if: you have any medication questions and your symp toms worsen Follow-up/Referrals: Kristel Rowley MD [Primary Care Provider] - Diet: Heart Healthy Addtl Attending Provider Instructions: Follow up with your primary care doctor within 1-2 weeks. Finish antibiotic treatment as prescribed. Also recommend taking probiotics while on antibiotics. Pending Studies at Discharge: No Stand-Alone Forms: My [employer] Smoking Cessation Medications and DC Order Prescriptions: New cefuroxime axetil 250 mg tablet 250 mg PO BID 5 Days Qty: 10 0RF Advanced Probiotic 625 mg (10 billion cell) Capsule 1 cap PO DAILY Qty: 10 0RF Continued risperidone 0.25 mg tablet 0.25 mg PO HS aspirin 81 mg tablet,delayed release (DR/EC) 81 mg PO DAILY levothyroxine 125 mcg tablet 125 mcg PO DAILY multivitamin [One Daily Multivitamin] Tablet 1 tab PO DAILY atenolol 25 mg tablet 12.5 mg PO DAILY Discharge Orders: Discharge Order (Routine); Ordered 12/08/23 Ordered By: Solitario Marino Admission Data Admit Date/Time: 12/05/23 22:53 Attending Provider: Solitario Marino Admit Provider: Saroj Aleman Primary Care Provider: Kristel Rowley Other Providers: Saroj Aleman; [facility]; [facility]
[2023-12-08] MEDS: ADVANCED PROBIOTIC 625 MG CAPSULE PO SCH (13:27)
--- NOTE | 2023-12-12 10:41 | Coding Query ---
CODING QUERY To promote full compliance with coding requirements relating to patient care, provider participation is requested in all cases of cup setter lockstitch uncertainty. Please assist us with the question(s) below: Please clarify the meaning of BARRY. BARRY is not a valid abbreviation. Thank you. ( x ) Acute Kidney Injury ( ) Acute Kidney Insufficiency ( ) Other (Specify): Principal Diagnosis: "that condition established after study, to be chiefly responsible for occasioning the admission of the patient to the hospital for care." Co-Existing Principal Diagnosis: "when two or more diagnoses equally meet the criteria for principal diagnosis as determined by the circumstances of admission, diagnostic work up, and/or therapy provided, and the Alphabetic Index, Tabular List, or another coding guideline does not provide sequencing direction, any one of the diagnoses may be sequenced first." "When the physician has documented what appears to be a current diagnosis in the body of the record, but has not included the diagnosis in the final diagnostic statement, the physician should be asked whether the diagnosis should be added." (Source [facility]oding [facility] 2 QTR90. p3-4) JOANNA
== END 2023-12-08 14:51 | disposition home health service (06) | DRG 690 ==
LOC: ED 19:10 → 2N 22:53 → INTOOBSV 22:53 → 2N 23:45

== ENCOUNTER 2024-11-03 19:33 | Inpatient (IN) ==
[2024-11-03 20:44] LABS: Basophils # (auto) 0.04 K/uL (0.00-0.20); Basophils % (auto) 0.3 %; Eosinophils # (auto) 0.01 K/uL (0.00-0.50); Eosinophils % (auto) 0.1 %; Hemoglobin 16.7 g/dl (12.0-16.0); Immature Granulocytes # (auto) 0.09 K/uL (0.01-0.20); Immature Granulocytes % (auto) 0.6 %; Lymphocytes # (auto) 0.63 K/uL (1.20-3.40); Lymphocytes % (auto) 3.9 %; Mean Corpuscular Hemoglobin 28.1 pg (25.0-34.0); Mean Corpuscular Hgb Conc 33.4 g/dL (32.0-36.0); Mean Corpuscular Volume 84.2 fL (80.0-100.0); Mean Platelet Volume 10.5 fL (9.4-12.4); Monocytes # (auto) 0.59 K/uL (0.11-0.59); Monocytes % (auto) 3.7 %; Neutrophils % (auto) 91.4 %; Platelet Count 369 K/uL (130-400); RDW Coefficient of Variation 16.2 % (11.5-14.5); RDW Standard Deviation 47.5 fL (36.4-46.3); Red Blood Count 5.94 M/uL (4.20-5.40); White Blood Count 15.96 K/ul (4.8-10.8)
[2024-11-03 20:47] LABS: Prothrombin Time 11.3 Seconds (9.0-12.0)
--- NOTE | 2024-11-03 20:51 | Emergency Department Note ---
Impression & Plan Acute on chronic renal insufficiency, Hypercalcemia, Acute UTI (urinary tract infection), Chronic diarrhea, Hiatal hernia ED Provider Note NAME: MIK MIRZA AGE: 84 SEX: F : 1940 ARRIVES VIA: Ambulance INFORMANT: Patient ED PROVIDER(S): Shaquille Kay MD CHIEF COMPLAINT: Confusion, weakness, poor appetite, poor oral intake for the past 2 days, chronic diarrhea for months, intermittent abdominal pain, concern for UTI PLAN: Disposition: Admit MEDICAL DECISION MAKING: The patient is a pleasant 84-year-old woman with a past medical history of hypertension, hypothyroidism who presents to the emergency department via EMS from home where she lives with her daughter who has autism but is cared for by her other daughter for evaluation of confusion from baseline, weakness, poor appetite, poor oral intake for the past couple of days, chronic diarrhea for months with intermittent abdominal pain and concern for urinary tract infection. Patient's daughter did call into emergency department to communicate goals of care to RN where they did not want CT imaging as the patient has made clear that she would not want any intervention for any surgical conditions such as cancer or otherwise. Rather they did want her assessed for urinary tract infection which she often will get and will explain some of her symptoms. Patient's daughter also request evaluation of her ongoing diarrhea which has been present for months. She also suspects that she is dehydrated. Otherwise, denies any fevers, chills, cough, congestion. Patient denies any complaints at this time but does describe having intermittent episodes of upset stomach and nausea for months. She reports that sometimes she has an appetite and other times she does not. On evaluation patient is well-appearing in no distress, afebrile blood pressure 140/90s medicines otherwise stable. She appears clinically dry. Abdomen is nontender, nondistended. She denies any complaints at this time. EKG without overt acute ischemia. CXR negative for acute cardiopulmonary process with chronic large hiatal hernia noted per my personal preliminary review/interpretation. WBC 15.9 K with neutrophilia but no left shift, nonspecific. H/H 16.7/50 consistent with the patient's clinically dry appearance. Platelets within normal limits. Creatinine 1.7 increased from patient's baseline range consistent with BARRY. BUN is 34. With BUN/creatinine approximately 20. No significant metabolic acidosis with bicarbonate 25, within normal limits and anion gap of 12 marginally above upper limit of normal. Calcium was noted to be significant elevated at 12.8 and electrolytes otherwise without significant abnormality. Initial high-sensitivity troponin 15 5, nonspecific. LFTs are unremarkable. TSH is low at 0.06 with free T4 1.74, marginally above upper limit of normal. UA with WBCs but no bacteria and negative nitrites. Stool studies ordered and collection of samples pending. Patient was treated with IV fluid hydration with 1500cc NSS given hypercalcemia with BARRY. Additionally treated with calcitonin. I did contact the patient's daughter to review the details of her results. While she did again reiterate their goals of care for the patient to avoid any aggressive/invasive therapies or testing she did agree and prefer admission to address her dehydration and elevated calcium. Upon her discussion she described that the patient frequently will take Tums for symptoms of indigestion and so her help hypercalcemia may be related to this. She also again reiterated the patient's ongoing loose stools and requested that this be assessed as well. KUB was subsequently performed and demonstrated dilated small bowel without overt evidence of infection per my preliminary independent interpretation. Ceftriaxone ordered empirically given patient's history of UTI and WBCs present on urine analysis while awaiting culture. [facility] the patient for [facility]. Further management per admitting team. Triage Nursing notes reviewed and agree them. Prior/external medical records reviewed Vital Signs: reviewed Differential diagnosis: Infection, dehydration, metabolic abnormality, hypo/hyperglycemia, electrolyte disturbance, anemia, hypoxia, cardiac sources, intracerebral event, toxicologic, neurologic, as well as other pathologies. ER treatment provided: See below. Diagnostics interpreted by me: ECG: Sinus rhythm with PVCs, 77 bpm, no overt ST elevation or depression, QTc 420, QRS 72. Cardiac Monitoring: An order for continuous cardiac monitoring was placed and demonstrated Sinus rhythm with PVCs, 77 bpm. Laboratory studies: See below Imaging studies: See below Consultation(s): [facility] for [facility]. HPI: The patient is a pleasant 84-year-old woman with a past medical history of hypertension, hypothyroidism who presents to the emergency department via EMS from home where she lives with her daughter who has autism but is cared for by her other daughter for evaluation of confusion from baseline, weakness, poor appetite, poor oral intake for the past couple of days, chronic diarrhea for months with intermittent abdominal pain and concern for urinary tract infection. Patient's daughter did call into emergency department to communicate goals of care to RN where they did not want CT imaging as the patient has made clear that she would not want any intervention for any surgical conditions such as cancer or otherwise. Rather they did want her assessed for urinary tract infection which she often will get and will explain some of her symptoms. Patient's daughter also request evaluation of her ongoing diarrhea which has been present for months. She also suspects that she is dehydrated. Otherwise, denies any fevers, chills, cough, congestion. Patient denies any complaints at this time but does describe having intermittent episodes of upset stomach and nausea for months. She reports that sometimes she has an appetite and other times she does not. ROS: See above HPI for pertinent positives & negatives. A total of 10 systems reviewed and were otherwise negative. VITALS:See Below PHYSICAL EXAMINATION: GENERAL: Awake, alert, in no distress HENT: Normocephalic, atraumatic. Oropharynx with dry mucous membranes and otherwise unremarkable. EYES: Normal conjunctiva. Sclera non-icteric. NECK: Supple. No nuchal rigidity. FROM. No JVD. RESPIRATORY: Clear to auscultation. CARDIAC: Regular rate, normal rhythm. Extremities warm and well perfused. Pulses equal. ABDOMEN: Soft, non-distended. No tenderness to palpation. No rebound or guarding. MUSCULOSKELETAL: Chest examination reveals no tenderness. The back is symmetrical on inspection without obvious abnormality. There is no CVA tenderness to palpation. No joint edema. LOWER EXTREMITIES: Calves are equal size bilaterally and non-tender. No edema. No discoloration. NEURO: No sensory or motor deficits noted. CNII-XII grossly intact. 5/5 strength and SILT x 4 extremities. SKIN: No rash or jaundice noted. Shaquille Kay MD Past Med/Surg History Problem List (Updated 11/04/24 @ 20:35 by Shaquille Kay MD) Hiatal hernia (Acute) Chronic diarrhea (Acute) Gastric outlet obstruction Diaphragmatic hernia Large bowel obstruction Hypercalcemia (Acute) Acute on chronic renal insufficiency (Acute) Acute UTI (urinary tract infection) (Acute) Multiple falls (Acute) Knee pain (Acute) Generalized weakness (Acute) CKD (chronic kidney disease) stage 3, GFR 30-59 ml/min Anemia Postoperative wound infection of left hip History of hemiarthroplasty of left hip Drainage from surgical wound (Acute) Hx laparoscopic cholecystectomy Hx of hysterectomy Hypothyroid Hypertension Medical History Hypothyroid Hypertension Closed subcapital fracture of left femur Surgical History History of hemiarthroplasty of left hip Hx laparoscopic cholecystectomy Hx of hysterectomy Social History Smoking Status: Never smoker Second Hand Exposure: No; Do You Dip or Chew Tobacco: No; Hx Alcohol Use: No Hx Substance Use: No Preferred Language: [place]ian Communication Ability: Effective Cloth Bolt Bander Required: No Beliefs That Will Affect Care: Anglican Current Living Situation: Family Current Living Situation Comment: home with daughter Feels Safe at Home: Yes Assistive Devices: Cane, Denture - Upper, Glasses and Walker Allergies Allergies Allergy/AdvReac Type Severity Reaction Status Date / Time No Known Allergies Allergy Verified 11/03/24 20:16 Home Meds Home Medications Medication Instructions Recorded Confirmed atenolol 25 mg tablet 12.5 mg PO DAILY 12/05/23 11/03/24 multivitamin (One Daily 1 tab PO DAILY 12/05/23 11/03/24 Multivitamin tablet) risperidone 0.25 mg tablet 0.25 mg PO HS 12/05/23 11/03/24 aspirin 325 mg tablet 325 mg PO DIRECTED PRN Pain 11/03/24 11/03/24 Previous Rx's Medication Instructions Recorded L.acidop,casei,lactis,rham-B.lact,cynthia 1 cap PO DAILY #10 caps 12/08/23 625 mg (10 billion cell) capsule (Advanced Probiotic) levothyroxine 100 mcg tablet 100 mcg PO DAILYBB #30 tabs 11/04/24 (Synthroid) Results & Data (ED) Vital Signs Vital Signs - 24 hr 11/03/24 20:22 11/03/24 22:00 Pulse Rate [Apical] 92 H Respiratory Rate 23 Respiratory Effort / Characteristics Non-Labored Spontaneous Respiratory Depth Normal Respiratory Pattern Regular Blood Pressure [Right Arm] 141/98 H Blood Pressure Mean [Right Arm] 112 Pulse Oximetry 93 93 Oxygen Delivery Method Room Air Room Air Laboratory Data Attestation: I reviewed the patient's lab results. 11/04/24 09:50 11/04/24 04:09 Lab Results 11/03/24 11/03/24 Range/Units 19:44 20:57 WBC 15.96 H (4.8-10.8) K/ul RBC 5.94 H (4.20-5.40) M/uL Hgb 16.7 H (12.0-16.0) g/dl Hct 50.0 H (37.0-47.0) % MCV 84.2 (80.0-100.0) fL MCH 28.1 (25.0-34.0) pg MCHC 33.4 (32.0-36.0) g/dL RDW Std Deviation 47.5 H (36.4-46.3) fL RDW Coeff of Adam 16.2 H (11.5-14.5) % Plt Count 369 (130-400) K/uL MPV 10.5 (9.4-12.4) fL Immature Gran % (Auto) 0.6 % Neut % (Auto) 91.4 % Lymph % (Auto) 3.9 % [place] % (Auto) 3.7 % Eos % (Auto) 0.1 % Baso % (Auto) 0.3 % Neut # (Auto) 14.60 H (1.40-6.50) K/uL Lymph # (Auto) 0.63 L (1.20-3.40) K/uL [place] # (Auto) 0.59 (0.11-0.59) K/uL Eos # (Auto) 0.01 (0.00-0.50) K/uL Baso # (Auto) 0.04 (0.00-0.20) K/uL Immature Gran # (Auto) 0.09 (0.01-0.20) K/uL PT 11.3 (9.0-12.0) Seconds INR 1.0 (0.9-1.1) Sodium 140 (136-145) mmol/L Potassium 4.2 (3.5-5.1) mmol/L Chloride 103 (98-107) mmol/L Carbon Dioxide 25 (21-32) mmol/L Anion Gap 12 H (3-11) BUN 35 H (6-23) mg/dl Creatinine 1.78 H (0.6-1.2) mg/dl Est Cr Clr Drug Dosing 15.5 ml/min eGFR 27.64 BUN/Creatinine Ratio 19.7 (10-20) Glucose 141 H (70-99(Fasting)) mg/dl Estimat Average Glucose 120 mg/dl Hemoglobin A1c 5.8 H (4.5-5.6) % Calcium 12.8 H* (8.6-10.3) mg/dl Phosphorus 3.5 (2.5-4.9) mg/dl Magnesium 1.8 (1.7-2.4) mg/dl Total Bilirubin 1.1 H (0.2-1.0) mg/dl Direct Bilirubin 0.2 (0-0.2) mg/dl AST 27 (13-39) U/L ALT 16 (7-52) U/L Alkaline Phosphatase 101 (34-104) U/L Troponin I High Sens 15.5 H (0-14) pg/ml Total Protein 7.4 (6.0-8.3) gm/dl Albumin 4.7 (3.4-5.0) gm/dl Globulin 2.7 (2.5-4.0) gm/dl Albumin/Globulin Ratio 1.7 (0.9-2) TSH 0.061 L (0.300-4.500) uIu/ml Free T4 1.74 H (0.61-1.60) ng/dl Urine Color Dark Yellow Urine Appearance Clear (Clear) Urine pH 5.5 (4.5-7.5) Ur Specific [place] 1.022 (1.000-1.030) Urine Protein 2+ H (Negative) Urine Glucose (UA) Negative (Negative) Urine Ketones Trace H (Negative) Urine Blood Trace H (Negative) Urine Nitrite Negative (Negative) Urine Bilirubin Negative (Negative) Urine Urobilinogen Negative (Negative) Ur Leukocyte Esterase 1+ H (Negative) Urine WBC (Auto) 6-10 H (0-5) /hpf Urine RBC (Auto) 0-2 (0-2) /hpf U Hyaline Cast (Auto) 3-5 H (0-2) /lpf U Epithel Cells (Auto) 0-2 (0-2) /hpf Urine Bacteria (Auto) None Seen (None Seen) Hyaline Casts Present A (None Presnt) /lpf Administered Medications Discontinued Medications Atenolol (Atenolol 25 Mg Tablet) 12.5 mg PO DAILY NATHAN Stop: 12/04/24 08:59 Last Admin: 11/04/24 07:39 Dose: 12.5 mg Documented By: LARRY Calcitonin [facility] (Calcitonin [facility] 400 Units/2 Ml) 160 units SQ NOW STA Stop: 11/03/24 22:15 Last Admin: 11/03/24 22:46 Dose: 160 units Documented By: QUINN Sodium Chloride (Nss) 500 mls @ 999 mls/hr IV .Q31M ONE Stop: 11/03/24 21:19 Last Infusion: 11/03/24 21:33 Dose: Infused Documented By: Admin: 11/03/24 21:02 Dose: 999 mls/hr Documented By: QUINN Sodium Chloride (Nss) 1,000 mls @ 999 mls/hr IV .Q1H1M ONE Stop: 11/03/24 22:07 Last Infusion: 11/03/24 22:39 Dose: Infused Documented By: Admin: 11/03/24 21:33 Dose: 999 mls/hr Documented By: QUINN Ceftriaxone Sodium (Rocephin) 2,000 mg in 50 mls @ 100 mls/hr IV NOW STA Stop: 11/03/24 23:21 Last Infusion: 11/04/24 00:23 Dose: Infused Documented By: Admin: 11/03/24 23:17 Dose: 100 mls/hr Documented By: VIJAY Sodium Chloride (Nss) 1,000 mls @ 100 mls/hr IV .Q10H ONE Stop: 11/04/24 09:09 Last Infusion: 11/04/24 09:30 Dose: Infused Documented By: Admin: 11/03/24 23:16 Dose: 100 mls/hr Documented By: VIJAY Promethazine HCl (Phenergan) 6.25 mg in 50.25 mls @ 201 mls/hr IV NOW STA Stop: 11/04/24 00:10 Last Admin: 11/04/24 00:22 Dose: Not Given Documented By: VIJAY Metronidazole (Flagyl) 500 mg in 100 mls @ 100 mls/hr IV NOW STA; Protocol Stop: 11/04/24 00:55 Last Infusion: 11/04/24 02:08 Dose: Infused Documented By: Admin: 11/04/24 00:34 Dose: 100 mls/hr Documented By: VIJAY Sodium Chloride (Nss) 1,000 mls @ 100 mls/hr IV .Q10H NATHAN Stop: 11/05/24 09:59 Last Admin: 11/04/24 09:30 Dose: 100 mls/hr Documented By: LARRY Pantoprazole Sodium 80 mg/ (Dextrose) 120 mls @ 480 mls/hr IV ONE STA Stop: 11/04/24 04:17 Last Infusion: 11/04/24 05:06 Dose: Infused Documented By: ANA LAURA Admin: 11/04/24 04:39 Dose: 480 mls/hr Documented By: ANA LAURA Levothyroxine Sodium (Levothyroxine Sodium 100 Mcg Tablet) 100 mcg PO DAILYBB NATHAN Stop: 12/04/24 06:29 Last Admin: 11/04/24 05:36 Dose: 100 mcg Documented By: ANA LAURA Multivitamins (Multivitamin Tab) 1 tab PO DAILY NATHAN Stop: 12/04/24 08:59 Last Admin: 11/04/24 07:38 Dose: 1 tab Documented By: LARRY Risperidone (Risperidone 0.25 Mg Tab) 0.25 mg PO HS NATHAN Stop: 12/04/24 01:29 Last Admin: 11/04/24 02:08 Dose: Not Given Documented By: VIJAY Imaging Data Radiologist's Impression: Chest X-Ray 11/03/24 20:12 Exam(s): XR CXR 1 VIEW EXAM: XR Chest, 1 View CLINICAL HISTORY: Reason for exam: weakness. TECHNIQUE: Frontal view of the chest. COMPARISON: Chest radiograph on 12/05/2023 FINDINGS: Hardware: None. Lungs/pleura: Hyperinflation of the lungs. Left lower lung atelectasis. No focal consolidation. No pleural effusion or pneumothorax. Heart/mediastinum: Stable enlargement of the cardiac silhouette. Large hiatal hernia.. Atherosclerotic changes in the aorta. Soft tissues: Unremarkable. Bones: No acute fracture. Upper abdomen: Normal. IMPRESSION: 1. Large hiatal hernia. 2. Probable left greater lower lung atelectasis. Electronically signed by: Julio Greenwood M.D. 11/03/24 22:20 PM Discharge Plan Visit Data Chief Complaint: Urinary Symptoms Stated Complaint: UTI ED Provider: Shaquille Kay Discharge Problem: Acute on chronic renal insufficiency, Hypercalcemia, Acute UTI (urinary tract infection), Chronic diarrhea, Hiatal hernia Patient Disposition: Admitted As Inpatient Discharge Instructions Interventions: ED Discharge Assessment Last Done: 11/04/24 02:43
[2024-11-03] MEDS: SODIUM CHLORIDE 0.9% 500 ML IV ONE (21:02)
[2024-11-03 21:07] LABS: Calcium 12.8 mg/dl (8.6-10.3)
[2024-11-03 21:08] LABS: Albumin Globulin Ratio 1.7 (0.9-2); Albumin Level 4.7 gm/dl (3.4-5.0); BUN Creatinine Ratio 19.7 (10-20); Bilirubin Direct 0.2 mg/dl (0-0.2); Bilirubin,Total 1.1 mg/dl (0.2-1.0); Creatinine Clr Calc Pharmacy 15.5 ml/min; Globulin 2.7 gm/dl (2.5-4.0); Magnesium 1.8 mg/dl (1.7-2.4); Potassium 4.2 mmol/L (3.5-5.1); Thyroid Stimulating Hormone 0.061 uIu/ml (0.300-4.500); Total Protein 7.4 gm/dl (6.0-8.3); Troponin I High Sensitivity 15.5 pg/ml (0-14)
[2024-11-03] MEDS: SODIUM CHLORIDE 0.9% 1,000 ML IV ONE ×2 (21:33→23:16)
[2024-11-03 21:45] LABS: T4 Free Thyroxine 1.74 ng/dl (0.61-1.60)
[2024-11-03 21:47] LABS: Appearance Urine Clear (Clear); Bacteria Urine Automated None Seen (None Seen); Bilirubin Urine Negative (Negative); Blood Urine Trace (Negative); Color Urine Dark Yellow; Epithelial Cell Urine Auto 0-2 /hpf (0-2); Glucose Urine UA Negative (Negative); Hyaline Casts Urine Present /lpf (None Presnt); Ketones Urine Trace (Negative); Leukocyte Esterase Urine 1+ (Negative); Nitrite Urine Negative (Negative); Protein Urine 2+ (Negative); RBC Urine Automated 0-2 /hpf (0-2); Specific Gravity Urine 1.022 (1.000-1.030); Urobilinogen Urine Negative (Negative); pH Urine 5.5 (4.5-7.5)
--- NOTE | 2024-11-03 22:22 | XRay Report ---
Exam(s): XR CXR 1 VIEW EXAM: XR Chest, 1 View CLINICAL HISTORY: Reason for exam: weakness. TECHNIQUE: Frontal view of the chest. COMPARISON: Chest radiograph on 12/05/2023 FINDINGS: Hardware: None. Lungs/pleura: Hyperinflation of the lungs. Left lower lung atelectasis. No focal consolidation. No pleural effusion or pneumothorax. Heart/mediastinum: Stable enlargement of the cardiac silhouette. Large hiatal hernia.. Atherosclerotic changes in the aorta. Soft tissues: Unremarkable. Bones: No acute fracture. Upper abdomen: Normal. IMPRESSION: 1. Large hiatal hernia. 2. Probable left greater lower lung atelectasis. Electronically signed by: Julio Greenwood M.D. 11/03/24 22:20 PM
[2024-11-03] MEDS: CALCITONIN SALMON 400 UNITS/2 ML SQ STA (22:46)
--- NOTE | 2024-11-03 22:53 | History & Physical Report ---
Date of Service November 03, 2024 Assessment & Plan (1) Hypercalcemia: Plan: Hypercalcemia Secondary to decreased p.o. intake from worsening diarrhea illness with vomiting symptoms rule out C. difficile colitis given recent antibiotic Rx ARF on CKD secondary to illness hypertension, slightly elevated secondary to discomfort hypothyroidism, low TSH with elevated free T4 Hyperglycemia no DM Admit to med/tele Monitor calcium and kidney function response to IVF May need Nephrology consult Stool cultures, stool C. difficile CT abdomen pelvis re: abdominal pain, diarrhea Decrease maintenance levothyroxine dose to from 125 to 100 mcg daily, recheck outpatient TFTs next month Check hemoglobin A1c DVT prophylaxis. Heparin subcu DNR Patient daughter requesting updates from providers. Ms. Jes Osborn, contact #[phone]. Text document was generated using [employer] voice recognition software. It may contain grammatical or spelling errors. Kindly contact undersigned for clarification of any documentation item in question. History of Present Illness Chief Complaint: Abdominal pain Primary Care Provider: Kristel Rowley MD History obtained from patient, family, and records. Medical history significant for hypertension, hypothyroidism, CRI (baseline creatinine 1.3), chronic diarrhea, history of MRSA as per records Last confinement November 2023 for E. coli UTI. 1 week history of achy central abdominal pain with nausea vomiting episodes. Worsening diarrhea. No black/bloody stools. Denies headache, chest pain, SOB. Poor appetite at home. Denies dysuria symptoms. Antibiotic medication last month for UTI as per patient. NSS boluses, Calcitonin, IV ceftriaxone administered at the ER. Medical History as above Surgical History : Dental surgery, YASH, cholecystectomy Family History : Autism Personal/Social history : Non-smoker, no EtOH intake, homemaker in the younger years Allergies Allergy/AdvReac Type Severity Reaction Status Date / Time No Known Allergies Allergy Verified 11/03/24 20:16 Home Medications Medication Instructions Recorded Confirmed Type atenolol 25 mg tablet 12.5 mg PO DAILY 12/05/23 11/03/24 History levothyroxine 125 mcg tablet 125 mcg PO DAILY 12/05/23 11/03/24 History multivitamin (One Daily 1 tab PO DAILY 12/05/23 11/03/24 History Multivitamin tablet) risperidone 0.25 mg tablet 0.25 mg PO HS 12/05/23 11/03/24 History L.acidop,casei,lactis,rham-B.lact,cynthia 1 cap PO DAILY #10 caps 12/08/23 11/03/24 Rx 625 mg (10 billion cell) capsule (Advanced Probiotic) aspirin 325 mg tablet 325 mg PO DIRECTED PRN Pain 11/03/24 11/03/24 History Past Med/Surg History Problem List (Updated 11/04/24 @ 01:31 by Shaquille Kay MD) Hypercalcemia (Acute) Acute on chronic renal insufficiency (Acute) Acute UTI (urinary tract infection) (Acute) Multiple falls (Acute) Knee pain (Acute) Generalized weakness (Acute) CKD (chronic kidney disease) stage 3, GFR 30-59 ml/min Anemia Postoperative wound infection of left hip History of hemiarthroplasty of left hip Drainage from surgical wound (Acute) Hx laparoscopic cholecystectomy Hx of hysterectomy Hypothyroid Hypertension Medical History Hypothyroid Hypertension Closed subcapital fracture of left femur Surgical History History of hemiarthroplasty of left hip Hx laparoscopic cholecystectomy Hx of hysterectomy Social History Smoking Status: Never smoker Second Hand Exposure: No; Do You Dip or Chew Tobacco: No; Hx Alcohol Use: No Hx Substance Use: No Preferred Language: [place] Communication Ability: Effective 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 Beliefs That Will Affect Care: None Current Living Situation: Family Current Living Situation Comment: home with daughter Feels Safe at Home: Yes Assistive Devices: Cane, Denture - Upper, Glasses and Walker Review of Systems Review of Systems: As per HPI, all other systems reviewed and negative Physical Exam Physical Exam: GENERAL: Slightly uncomfortable, episodic dry heaving, underweight, no respiratory distress SKIN: Normal color, warm HEENT: [place] palpebral conjunctivae, no ptosis, dry buccal mucosa NECK : Supple, no tenderness CHEST : Decreased breath sounds, no tenderness HEART : RRR, no obvious murmurs ABDOMEN: Marked distention, central abdominal tenderness EXTREMITIES : No LE swelling/tenderness, palpable pulses, no other conspicuous deformities noted NEUROLOGIC : Coherent, no facial asymmetry, slightly hard of hearing, no other gross focality Results & Data Results & Data Vital Signs (Past 12 Hours) Vital Signs Temp Pulse Resp BP Pulse Ox O2 Del Method 11/03/24 20:22 93 Room Air 11/03/24 19:54 80 11/03/24 19:30 36.7 C 85 14 142/99 H 96 Room Air Laboratory Results Laboratory Results WBC 15.96 K/ul (4.8-10.8) H 11/03/24 19:44 RBC 5.94 M/uL (4.20-5.40) H 11/03/24 19:44 Hgb 16.7 g/dl (12.0-16.0) H 11/03/24 19:44 Hct 50.0 % (37.0-47.0) H 11/03/24 19:44 MCV 84.2 fL (80.0-100.0) 11/03/24 19:44 MCH 28.1 pg (25.0-34.0) 11/03/24 19:44 MCHC 33.4 g/dL (32.0-36.0) 11/03/24 19:44 RDW Std Deviation 47.5 fL (36.4-46.3) H 11/03/24 19:44 RDW Coeff of Adam 16.2 % (11.5-14.5) H 11/03/24 19:44 Plt Count 369 K/uL (130-400) 11/03/24 19:44 MPV 10.5 fL (9.4-12.4) 11/03/24 19:44 Immature Gran % (Auto) 0.6 % 11/03/24 19:44 Neut % (Auto) 91.4 % 11/03/24 19:44 Lymph % (Auto) 3.9 % 11/03/24 19:44 [place] % (Auto) 3.7 % 11/03/24 19:44 Eos % (Auto) 0.1 % 11/03/24 19:44 Baso % (Auto) 0.3 % 11/03/24 19:44 Neut # (Auto) 14.60 K/uL (1.40-6.50) H 11/03/24 19:44 Lymph # (Auto) 0.63 K/uL (1.20-3.40) L 11/03/24 19:44 Kimble # (Auto) 0.59 K/uL (0.11-0.59) 11/03/24 19:44 Eos # (Auto) 0.01 K/uL (0.00-0.50) 11/03/24 19:44 Baso # (Auto) 0.04 K/uL (0.00-0.20) 11/03/24 19:44 Immature Gran # (Auto) 0.09 K/uL (0.01-0.20) 11/03/24 19:44 PT 11.3 Seconds (9.0-12.0) 11/03/24 19:44 INR 1.0 (0.9-1.1) 11/03/24 19:44 Sodium 140 mmol/L (136-145) 11/03/24 19:44 Potassium 4.2 mmol/L (3.5-5.1) 11/03/24 19:44 Chloride 103 mmol/L (98-107) 11/03/24 19:44 Carbon Dioxide 25 mmol/L (21-32) 11/03/24 19:44 Anion Gap 12 (3-11) H 11/03/24 19:44 BUN 35 mg/dl (6-23) H 11/03/24 19:44 Creatinine 1.78 mg/dl (0.6-1.2) H 11/03/24 19:44 Est Cr Clr Drug Dosing 15.5 ml/min 11/03/24 19:44 eGFR 27.64 11/03/24 19:44 BUN/Creatinine Ratio 19.7 (10-20) 11/03/24 19:44 Glucose 141 mg/dl (70-99(Fasting)) H 11/03/24 19:44 Calcium 12.8 mg/dl (8.6-10.3) H* 11/03/24 19:44 Magnesium 1.8 mg/dl (1.7-2.4) 11/03/24 19:44 Total Bilirubin 1.1 mg/dl (0.2-1.0) H 11/03/24 19:44 Direct Bilirubin 0.2 mg/dl (0-0.2) 11/03/24 19:44 AST 27 U/L (13-39) 11/03/24 19:44 ALT 16 U/L (7-52) 11/03/24 19:44 Alkaline Phosphatase 101 U/L (34-104) 11/03/24 19:44 Troponin I High Sens 15.5 pg/ml (0-14) H 11/03/24 19:44 Total Protein 7.4 gm/dl (6.0-8.3) 11/03/24 19:44 Albumin 4.7 gm/dl (3.4-5.0) 11/03/24 19:44 Globulin 2.7 gm/dl (2.5-4.0) 11/03/24 19:44 Albumin/Globulin Ratio 1.7 (0.9-2) 11/03/24 19:44 TSH 0.061 uIu/ml (0.300-4.500) L 11/03/24 19:44 Free T4 1.74 ng/dl (0.61-1.60) H 11/03/24 19:44 Urine Color Dark Yellow 11/03/24 20:57 Urine Appearance Clear (Clear) 11/03/24 20:57 Urine pH 5.5 (4.5-7.5) 11/03/24 20:57 Ur Specific [place] 1.022 (1.000-1.030) 11/03/24 20:57 Urine Protein 2+ (Negative) H 11/03/24 20:57 Urine Glucose (UA) Negative (Negative) 11/03/24 20:57 Urine Ketones Trace (Negative) H 11/03/24 20:57 Urine Blood Trace (Negative) H 11/03/24 20:57 Urine Nitrite Negative (Negative) 11/03/24 20:57 Urine Bilirubin Negative (Negative) 11/03/24 20:57 Urine Urobilinogen Negative (Negative) 11/03/24 20:57 Ur Leukocyte Esterase 1+ (Negative) H 11/03/24 20:57 Urine WBC (Auto) 6-10 /hpf (0-5) H 11/03/24 20:57 Urine RBC (Auto) 0-2 /hpf (0-2) 11/03/24 20:57 U Hyaline Cast (Auto) 3-5 /lpf (0-2) H 11/03/24 20:57 U Epithel Cells (Auto) 0-2 /hpf (0-2) 11/03/24 20:57 Urine Bacteria (Auto) None Seen (None Seen) 11/03/24 20:57 Hyaline Casts Present /lpf (None Presnt) A 11/03/24 20:57 Impressions Chest X-Ray 11/03/24 20:12 Exam(s): XR CXR 1 VIEW EXAM: XR Chest, 1 View CLINICAL HISTORY: Reason for exam: weakness. TECHNIQUE: Frontal view of the chest. COMPARISON: Chest radiograph on 12/05/2023 FINDINGS: Hardware: None. Lungs/pleura: Hyperinflation of the lungs. Left lower lung atelectasis. No focal consolidation. No pleural effusion or pneumothorax. Heart/mediastinum: Stable enlargement of the cardiac silhouette. Large hiatal hernia.. Atherosclerotic changes in the aorta. Soft tissues: Unremarkable. Bones: No acute fracture. Upper abdomen: Normal. IMPRESSION: 1. Large hiatal hernia. 2. Probable left greater lower lung atelectasis. Electronically signed by: Julio Greenwood M.D. 11/03/24 22:20 PM Diagnostic Findings EKG as per my interpretation :Rate 80, NSR, normal axis, no ischemia, PVCs, low voltage
[2024-11-03] MEDS: cefTRIAXone SODIUM 2,000 MG/50 ML BAG IV STA (23:17)
[2024-11-03] MEDS ORDERED: ACETAMINOPHEN 325 MG TAB PO PRN (23:25)
[2024-11-03 23:56] LABS: Phosphorus 3.5 mg/dl (2.5-4.9)
[2024-11-03] MEDS ORDERED: PROMETHAZINE 6.25 MG/50.25 ML BAG IV PRN (23:56)
[2024-11-04] MEDS ORDERED: MoRPHine SULFATE 2 MG/ML CARP IV PRN (00:02)
[2024-11-04] MEDS ORDERED: traMADol HCL 50 MG TABLET PO PRN (00:02)
[2024-11-04 00:17] LABS: Base Excess VBG -1.7 mEq/L; HCO3 VBG 22 mmol/L; Oxygen Saturation VBG 84.9 %; PCO2 VBG 34 mmHg (38-50); PO2 VBG 50 mmHg; pH VBG 7.42 (7.36-7.41)
[2024-11-04] MEDS: PROMETHAZINE 6.25 MG/50.25 ML BAG IV STA (00:22)
[2024-11-04] MEDS: metroNIDAZOLE 500 MG/100 ML BAG IV STA (00:34)
[2024-11-04 00:38] LABS: BUN Creatinine Ratio 20.6 (10-20); Calcium 10.9 mg/dl (8.6-10.3); Creatinine Clr Calc Pharmacy 17.8 ml/min; Potassium 4.3 mmol/L (3.5-5.1)
[2024-11-04 00:46] LABS: Troponin I High Sensitivity 23.6 pg/ml (0-14)
[2024-11-04] MEDS: risperiDONE 0.25 MG TAB PO SCH (02:08)
[2024-11-04 03:05] LABS: Adenovirus F 40/41 PCR Not Detected (NotDetected); Astrovirus PCR Not Detected (NotDetected); Campylobacter PCR Not Detected (NotDetected); Cryptosporidium PCR Not Detected (NotDetected); Cyclospora cayetanensis PCR Not Detected (NotDetected); Entamoeba histolytica PCR Not Detected (NotDetected); Enteroaggregative E.coli(EAEC) Not Detected (NotDetected); Enteropathogenic E.coli (EPEC) Not Detected (NotDetected); Enterotoxigenic E.coli (ETEC) Not Detected (NotDetected); Giardia lamblia PCR Not Detected (NotDetected); Norovirus GI/GII PCR Not Detected (NotDetected); Plesiomonas shigelloides PCR Not Detected (NotDetected); Rotavirus A PCR Not Detected (NotDetected); Salmonella PCR Not Detected (NotDetected); Sapovirus PCR Not Detected (NotDetected); Shiga-like Toxin E.coli (STEC) Not Detected (NotDetected); Shigella/Enteroinvasive E.coli Not Detected (NotDetected); Vibrio cholerae PCR Not Detected (NotDetected); Vibrio species PCR Not Detected (NotDetected); Yersinia enterocolitica PCR Not Detected (NotDetected)
--- NOTE | 2024-11-04 03:11 | CT Scan Report ---
EXAM: CT abd pelvis wo con CLINICAL HISTORY: abd pain TECHNIQUE: Contiguous axial images were obtained from the level of the diaphragm to the pubic symphysis without intravenous or oral contrast. Coronal and sagittal reconstructions were likewise performed and indicated to increase the sensitivity for detecting clinically relevant pathology. CT scan was performed according to ALARA (as low as reasonable achievable). COMPARISON: .. None FINDINGS: There is a large hiatal hernia, with herniation of stomach as well as transverse colon. This herniated transverse colon loop is dilated with air fluid levels. The proximal large bowel is grossly dilated with air fluid levels. Evaluation of the abdominal and pelvic visceral organs is limited without intravenous contrast. The unenhanced liver, spleen, pancreas, and adrenal glands are grossly unremarkable. The gallbladder is postop. The kidneys are normal in size and attenuation without obvious calcification. There is no hydronephrosis or perinephric stranding. The ureters are normal in caliber. Right renal cysts noted with right renal scarring Multiple right renal and solitary left renal calculi noted. No adenopathy or fluid collections are seen. The appendix is not visualized distinctly. The aorta shows atherocalcific changes The urinary bladder is normal in contour. Pelvic viscera are grossly unremarkable. No aggressive appearing osseous lesions are identified. Marked degenerative changes in spine with left hip implant Mild ascites. IMPRESSION: 1 Large hiatal hernia with herniation of stomach and transverse colon. 2 Features of intestinal obstruction with dilated large bowel with air fluid levels till the mid/distal transverse colon 3 Mild ascites 4 Multiple right renal and solitary left renal calculi noted. 5 Right kidney shows renal scarring with right renal cysts. Electronically signed by Bryon Hinkle 11-04-2024 03:10 AM
--- NOTE | 2024-11-04 04:03 | Communication Note ---
Date of Service: November 04, 2024 Made aware by stat rad of abnormal CTAP result 1 Large hiatal hernia with herniation of stomach and transverse colon. 2 Features of intestinal obstruction with dilated large bowel with air fluid levels till the mid/distal transverse colon 3 Mild ascites 4 Multiple right renal and solitary left renal calculi noted. 5 Right kidney shows renal scarring with right renal cysts. Patient later had bloody BM upon arrival at the floor admixed with dark stool as per RN. AP Bowel obstruction Possible UGIB, history hiatal hernia N.p.o. NGT decompression if with further emesis General Surgery consult in a.m. IV PPI for possible UGIB Patient and daughter updated of plan of care.
[2024-11-04] MEDS: PANTOprazole 80 MG in DEXTROSE 5% 100 ML IV STA (04:39)
[2024-11-04 04:40] LABS: Hematocrit (blood only) 44.3 % (37.0-47.0); Hemoglobin 14.8 g/dl (12.0-16.0); Mean Corpuscular Hgb Conc 33.4 g/dL (32.0-36.0); Mean Corpuscular Volume 83.7 fL (80.0-100.0); Mean Platelet Volume 10.1 fL (9.4-12.4); Platelet Count 307 K/uL (130-400); RDW Coefficient of Variation 15.7 % (11.5-14.5); Red Blood Count 5.29 M/uL (4.20-5.40); White Blood Count 12.41 K/ul (4.8-10.8)
[2024-11-04 04:48] LABS: BUN Creatinine Ratio 22.8 (10-20); Calcium 10.6 mg/dl (8.6-10.3); Creatinine Clr Calc Pharmacy 21.2 ml/min; Potassium 4.1 mmol/L (3.5-5.1)
[2024-11-04 04:57] LABS: Troponin I High Sensitivity 37.6 pg/ml (0-14)
[2024-11-04 05:10] LABS: Basophils # (auto) 0.03 K/uL (0.00-0.20); Basophils % (auto) 0.2 %; Echinocytes 1+; Immature Granulocytes # (auto) 0.08 K/uL (0.01-0.20); Immature Granulocytes % (auto) 0.6 %; Lymphocytes # (auto) 0.44 K/uL (1.20-3.40); Lymphocytes % (auto) 3.5 %; Monocytes # (auto) 0.69 K/uL (0.11-0.59); Monocytes % (auto) 5.6 %; Neutrophils # (auto) 11.17 K/uL (1.40-6.50); Neutrophils % (auto) 90.1 %
[2024-11-04] MEDS: LEVOTHYROXINE SODIUM 100 MCG TABLET PO SCH (05:36)
[2024-11-04 07:09] LABS: Estimated Average Glucose 120 mg/dl; Hemoglobin A1C 5.8 % (4.5-5.6)
--- NOTE | 2024-11-04 07:11 | XRay Report ---
EXAM: XR KUB/Abdomen 1 view CLINICAL HISTORY: abdominal pain and diarrhea. TECHNIQUE: X-ray images of the abdomen were obtained in supine and upright positions. COMPARISON: 11/03/2024 00:48:[address] FINDINGS: Gas Pattern: Mild dilatation of the small bowel is seen. Soft Tissues: The soft tissues of the abdomen appear normal without evidence of masses or calcifications. Liver, spleen, and kidneys are of normal size and position. Marked lumbar spondylosis. IMPRESSION: 1. Compared to prior CT, no signs of bowel obstruction noted, likely resovled, Clinical correlation is needed. 2. Mild dilatation of the small bowel is seen. Electronically signed by Quinn Carter 11-04-2024 07:11 AM
[2024-11-04] MEDS: MULTIVITAMIN TAB PO SCH (07:38)
[2024-11-04] MEDS: ATENOLOL 25 MG TABLET PO SCH (07:39)
[2024-11-04] MEDS: SODIUM CHLORIDE 0.9% 1,000 ML IV SCH (09:30)
--- NOTE | 2024-11-04 10:18 | Surgery Consultation ---
Date of Consultation November 04, 2024 Assessment & Plan (1) Large bowel obstruction: (2) Diaphragmatic hernia: (3) Gastric outlet obstruction: Plan 84 yo female with vague history of abdominal cramping, nausea, vomiting , and diarrhea with CT scan showing large hiatal hernia with transverse colon and stomach in the chest with bowel obstruction. Reviewed images with Radiology this morning and there is concern about possible gastric outlet obstruction along with large bowel obstruction with significantly dilated right colon due to obstruction at the transverse colon. Lactate is normal and patient is with minimal symptoms and benign examination. However given the radiology findings, recommend transfer to tertiary center with foregut/MIS surgeons for further evaluation and management. Discussed with Dr. Barney who agrees with above. Discussed with Hospitalist Dr. Joseph. History of Present Illness Reason for Consultation: bowel obstruction Requesting Physician: Dr. Martha MD Attending Physician: Noah Joseph, History of Present Illness Anisha is a 84 yo female with history of EKD stage 3, anemia, hypothyroidism, hypertension, generalized weakness, knee pain, multiple falls who presented to ED with 1 week of central abdominal cramping pain with nausea and diarrhea. History is limited as patient does not give great historian as to what her symptoms have been in the last week. She states she will have some mild pain in the abdomen and then it self resolves. No persistent nausea and vomiting but has noticed increase in reflux in last month or so. Unaware of any prior large hiatal hernia. Bowels have been loose in nature for some time. Allergies Allergy/AdvReac Type Severity Reaction Status Date / Time No Known Allergies Allergy Verified 11/03/24 20:16 Home Medications Medication Instructions Recorded Confirmed Type atenolol 25 mg tablet 12.5 mg PO DAILY 12/05/23 11/03/24 History levothyroxine 125 mcg tablet 125 mcg PO DAILY 12/05/23 11/03/24 History multivitamin (One Daily 1 tab PO DAILY 12/05/23 11/03/24 History Multivitamin tablet) risperidone 0.25 mg tablet 0.25 mg PO HS 12/05/23 11/03/24 History L.acidop,casei,lactis,rham-B.lact,cynthia 1 cap PO DAILY #10 caps 12/08/23 11/03/24 Rx 625 mg (10 billion cell) capsule (Advanced Probiotic) aspirin 325 mg tablet 325 mg PO DIRECTED PRN Pain 04/07/25 04/07/25 History Patient History Medical History Hypothyroid Hypertension Closed subcapital fracture of left femur Surgical History History of hemiarthroplasty of left hip Hx laparoscopic cholecystectomy Hx of hysterectomy Social History Smoking Status: Never smoker Second Hand Exposure: No; Do You Dip or Chew Tobacco: No; Hx Alcohol Use: No Hx Substance Use: No Preferred Language: Slovak Communication Ability: Effective Front Desk Assistant Required: No Beliefs That Will Affect Care: None Current Living Situation: Family Current Living Situation Comment: home with daughter Feels Safe at Home: Yes Assistive Devices: Cane, Denture - Upper, Glasses and Walker Review of Systems Review of Systems: All systems reviewed & are unremarkable except as noted in HPI & below Physical Exam Constitutional: WD/WN, vitals as above + thin, cooperative and comfortable Respiratory: normal respiratory effort, lungs clear to auscultation Cardiovascular: Rate/Rhythm: regular rate and regular rhythm Gastrointestinal (Abdomen): Inspection/Auscultation: abdomen normal to inspection; abdomen not distended Percussion/Palpation: abdomen soft; abdomen nontender, no guarding, abdomen not rigid and abdomen not firm Skin: no rashes, warm and dry Psychiatric: Orientation: alert, oriented to person and oriented to place Results & Data Vital Signs (Past 12 Hours) Vital Signs Temp Pulse Pulse Pulse Resp BP BP 11/04/24 07:46 37.1 C 83 130/76 11/04/24 07:40 11/04/24 07:00 78 11/04/24 03:50 11/04/24 03:50 36.7 C 83 18 143/93 H 11/04/24 03:50 11/04/24 02:43 88 18 148/109 H 11/04/24 01:00 91 H 20 143/94 H 11/03/24 23:56 97 H Pulse Ox Pulse Ox O2 Del Method O2 Del Method 11/04/24 07:46 92 Room Air 11/04/24 07:40 Room Air 11/04/24 07:00 04/08/25 03:50 Room Air 11/04/24 03:50 93 Room Air 11/04/24 03:50 93 Room Air 11/04/24 02:43 92 Room Air 11/04/24 01:00 91 Room Air 11/03/24 23:56 Laboratory Results 11/04/24 11/04/24 11/04/24 Range/Units 09:50 04:57 04:27 WBC (4.8-10.8) K/ul RBC (4.20-5.40) M/uL Hgb 13.3 (12.0-16.0) g/dl Hct 40.8 (37.0-47.0) % MCV (80.0-100.0) fL MCH (25.0-34.0) pg MCHC (32.0-36.0) g/dL RDW Std Deviation (36.4-46.3) fL RDW Coeff of Adam (11.5-14.5) % Plt Count (130-400) K/uL MPV (9.4-12.4) fL Immature Gran % (Auto) % Neut % (Auto) % Lymph % (Auto) % [place] % (Auto) % Eos % (Auto) % Baso % (Auto) % Neut # (Auto) (1.40-6.50) K/uL Lymph # (Auto) (1.20-3.40) K/uL [place] # (Auto) (0.11-0.59) K/uL Eos # (Auto) (0.00-0.50) K/uL Baso # (Auto) (0.00-0.20) K/uL Immature Gran # (Auto) (0.01-0.20) K/uL Echinocytes PT (9.0-12.0) Seconds INR (0.9-1.1) VBG pH (7.36-7.41) VBG pCO2 (38-50) mmHg VBG pO2 mmHg VBG HCO3 mmol/L VBG O2 Saturation % VBG Base Excess mEq/L Sodium (136-145) mmol/L Potassium (3.5-5.1) mmol/L Chloride (98-107) mmol/L Carbon Dioxide (21-32) mmol/L Anion Gap (3-11) BUN (6-23) mg/dl Creatinine (0.6-1.2) mg/dl Est Cr Clr Drug Dosing ml/min eGFR BUN/Creatinine Ratio (10-20) Glucose (70-99(Fasting)) mg/dl Estimat Average Glucose mg/dl Hemoglobin A1c (4.5-5.6) % Lactate (0.4-2.0) mmol/L Calcium 9.6 (8.6-10.3) mg/dl Phosphorus (2.5-4.9) mg/dl Magnesium (1.7-2.4) mg/dl Total Bilirubin (0.2-1.0) mg/dl Direct Bilirubin (0-0.2) mg/dl AST (13-39) U/L ALT (7-52) U/L Alkaline Phosphatase (34-104) U/L Total Creatine Kinase (26-192) U/L Troponin I High Sens (0-14) pg/ml Total Protein (6.0-8.3) gm/dl Albumin (3.4-5.0) gm/dl Globulin (2.5-4.0) gm/dl Albumin/Globulin Ratio (0.9-2) Procalcitonin 0.10 (0-0.5) ng/ml TSH (0.300-4.500) uIu/ml Free T4 (0.61-1.60) ng/dl PTH Intact (12.0-88.0) pg/ml Urine Color Urine Appearance (Clear) Urine pH (4.5-7.5) Ur Specific [place] (1.000-1.030) Urine Protein (Negative) Urine Glucose (UA) (Negative) Urine Ketones (Negative) Urine Blood (Negative) Urine Nitrite (Negative) Urine Bilirubin (Negative) Urine Urobilinogen (Negative) Ur Leukocyte Esterase (Negative) Urine WBC (Auto) (0-5) /hpf Urine RBC (Auto) (0-2) /hpf U Hyaline Cast (Auto) (0-2) /lpf U Epithel Cells (Auto) (0-2) /hpf Urine Bacteria (Auto) (None Seen) Hyaline Casts (None Presnt) /lpf Nasal Screen MRSA (PCR) Negative (Negative) Stl C. cayetanensis PCR (NotDetected) Stool Rotavirus A PCR (NotDetected) Stl Adenov F 40/41 PCR (NotDetected) Stool Astrovirus (PCR) (NotDetected) Stool Campylobacter PCR (NotDetected) Stl C. diff Tox B Gene (Neg) Stool Cryptosporidium PCR (NotDetected) Stl E.coli Shiga Tox PCR (NotDetected) Stl Enterotoxigenic E PCR (NotDetected) Stool EPEC (PCR) (NotDetected) Stool EAEC (PCR) (NotDetected) Stl E. histolytica PCR (NotDetected) Stool Giardia Lamblia PCR (NotDetected) Stool Salmonella PCR (NotDetected) Stool Sapovirus (PCR) (NotDetected) Stl P. shigelloides PCR (NotDetected) Stl Shigella/EIEC PCR (NotDetected) St Y.enterocolitica PCR (NotDetected) Stool Vibrio (PCR) (NotDetected) Stl Vibrio cholerae PCR (NotDetected) Stl Norovirus GI/GII PCR (NotDetected) Blood Type Antibody Screen 11/04/24 11/04/24 11/04/24 Range/Units 04:09 01:35 00:06 WBC 12.41 H (4.8-10.8) K/ul RBC 5.29 (4.20-5.40) M/uL Hgb 14.8 (12.0-16.0) g/dl Hct 44.3 (37.0-47.0) % MCV 83.7 (80.0-100.0) fL MCH 28.0 (25.0-34.0) pg MCHC 33.4 (32.0-36.0) g/dL RDW Std Deviation 47.0 H (36.4-46.3) fL RDW Coeff of Adam 15.7 H (11.5-14.5) % Plt Count 307 (130-400) K/uL MPV 10.1 (9.4-12.4) fL Immature Gran % (Auto) 0.6 % Neut % (Auto) 90.1 % Lymph % (Auto) 3.5 % [place] % (Auto) 5.6 % Eos % (Auto) 0.0 % Baso % (Auto) 0.2 % Neut # (Auto) 11.17 H (1.40-6.50) K/uL Lymph # (Auto) 0.44 L (1.20-3.40) K/uL [place] # (Auto) 0.69 H (0.11-0.59) K/uL Eos # (Auto) 0.00 (0.00-0.50) K/uL Baso # (Auto) 0.03 (0.00-0.20) K/uL Immature Gran # (Auto) 0.08 (0.01-0.20) K/uL Echinocytes 1+ PT (9.0-12.0) Seconds INR (0.9-1.1) VBG pH 7.42 H (7.36-7.41) VBG pCO2 34 L (38-50) mmHg VBG pO2 50 mmHg VBG HCO3 22 mmol/L VBG O2 Saturation 84.9 % VBG Base Excess -1.7 mEq/L Sodium 141 141 (136-145) mmol/L Potassium 4.1 4.3 (3.5-5.1) mmol/L Chloride 109 H 109 H (98-107) mmol/L Carbon Dioxide 23 24 (21-32) mmol/L Anion Gap 9 8 (3-11) BUN 34 H 32 H (6-23) mg/dl Creatinine 1.49 H 1.55 H (0.6-1.2) mg/dl Est Cr Clr Drug Dosing 21.2 17.8 ml/min eGFR 34.21 32.63 BUN/Creatinine Ratio 22.8 H 20.6 H (10-20) Glucose 166 H 154 H (70-99(Fasting)) mg/dl Estimat Average Glucose mg/dl Hemoglobin A1c (4.5-5.6) % Lactate 1.8 (0.4-2.0) mmol/L Calcium 10.6 H 10.9 H (8.6-10.3) mg/dl Phosphorus (2.5-4.9) mg/dl Magnesium (1.7-2.4) mg/dl Total Bilirubin (0.2-1.0) mg/dl Direct Bilirubin (0-0.2) mg/dl AST (13-39) U/L ALT (7-52) U/L Alkaline Phosphatase (34-104) U/L Total Creatine Kinase 32 (26-192) U/L Troponin I High Sens 37.6 H D 23.6 H (0-14) pg/ml Total Protein (6.0-8.3) gm/dl Albumin (3.4-5.0) gm/dl Globulin (2.5-4.0) gm/dl Albumin/Globulin Ratio (0.9-2) Procalcitonin (0-0.5) ng/ml TSH (0.300-4.500) uIu/ml Free T4 (0.61-1.60) ng/dl PTH Intact 10.9 L (12.0-88.0) pg/ml Urine Color Urine Appearance (Clear) Urine pH (4.5-7.5) Ur Specific [place] (1.000-1.030) Urine Protein (Negative) Urine Glucose (UA) (Negative) Urine Ketones (Negative) Urine Blood (Negative) Urine Nitrite (Negative) Urine Bilirubin (Negative) Urine Urobilinogen (Negative) Ur Leukocyte Esterase (Negative) Urine WBC (Auto) (0-5) /hpf Urine RBC (Auto) (0-2) /hpf U Hyaline Cast (Auto) (0-2) /lpf U Epithel Cells (Auto) (0-2) /hpf Urine Bacteria (Auto) (None Seen) Hyaline Casts (None Presnt) /lpf Nasal Screen MRSA (PCR) (Negative) Stl C. cayetanensis PCR Not Detected (NotDetected) Stool Rotavirus A PCR Not Detected (NotDetected) Stl Adenov F 40/41 PCR Not Detected (NotDetected) Stool Astrovirus (PCR) Not Detected (NotDetected) Stool Campylobacter PCR Not Detected (NotDetected) Stl C. diff Tox B Gene Negative Cdiff Gene (Neg) Stool Cryptosporidium PCR Not Detected (NotDetected) Stl E.coli Shiga Tox PCR Not Detected (NotDetected) Stl Enterotoxigenic E PCR Not Detected (NotDetected) Stool EPEC (PCR) Not Detected (NotDetected) Stool EAEC (PCR) Not Detected (NotDetected) Stl E. histolytica PCR Not Detected (NotDetected) Stool Giardia Lamblia PCR Not Detected (NotDetected) Stool Salmonella PCR Not Detected (NotDetected) Stool Sapovirus (PCR) Not Detected (NotDetected) Stl P. shigelloides PCR Not Detected (NotDetected) Stl Shigella/EIEC PCR Not Detected (NotDetected) St Y.enterocolitica PCR Not Detected (NotDetected) Stool Vibrio (PCR) Not Detected (NotDetected) Stl Vibrio cholerae PCR Not Detected (NotDetected) Stl Norovirus GI/GII PCR Not Detected (NotDetected) Blood Type O Positive Antibody Screen NEGATIVE 11/03/24 11/03/24 Range/Units 20:57 19:44 WBC 15.96 H (4.8-10.8) K/ul RBC 5.94 H (4.20-5.40) M/uL Hgb 16.7 H (12.0-16.0) g/dl Hct 50.0 H (37.0-47.0) % MCV 84.2 (80.0-100.0) fL MCH 28.1 (25.0-34.0) pg MCHC 33.4 (32.0-36.0) g/dL RDW Std Deviation 47.5 H (36.4-46.3) fL RDW Coeff of Adam 16.2 H (11.5-14.5) % Plt Count 369 (130-400) K/uL MPV 10.5 (9.4-12.4) fL Immature Gran % (Auto) 0.6 % Neut % (Auto) 91.4 % Lymph % (Auto) 3.9 % [place] % (Auto) 3.7 % Eos % (Auto) 0.1 % Baso % (Auto) 0.3 % Neut # (Auto) 14.60 H (1.40-6.50) K/uL Lymph # (Auto) 0.63 L (1.20-3.40) K/uL [place] # (Auto) 0.59 (0.11-0.59) K/uL Eos # (Auto) 0.01 (0.00-0.50) K/uL Baso # (Auto) 0.04 (0.00-0.20) K/uL Immature Gran # (Auto) 0.09 (0.01-0.20) K/uL Echinocytes PT 11.3 (9.0-12.0) Seconds INR 1.0 (0.9-1.1) VBG pH (7.36-7.41) VBG pCO2 (38-50) mmHg VBG pO2 mmHg VBG HCO3 mmol/L VBG O2 Saturation % VBG Base Excess mEq/L Sodium 140 (136-145) mmol/L Potassium 4.2 (3.5-5.1) mmol/L Chloride 103 (98-107) mmol/L Carbon Dioxide 25 (21-32) mmol/L Anion Gap 12 H (3-11) BUN 35 H (6-23) mg/dl Creatinine 1.78 H (0.6-1.2) mg/dl Est Cr Clr Drug Dosing 15.5 ml/min eGFR 27.64 BUN/Creatinine Ratio 19.7 (10-20) Glucose 141 H (70-99(Fasting)) mg/dl Estimat Average Glucose 120 mg/dl Hemoglobin A1c 5.8 H (4.5-5.6) % Lactate (0.4-2.0) mmol/L Calcium 12.8 H* (8.6-10.3) mg/dl Phosphorus 3.5 (2.5-4.9) mg/dl Magnesium 1.8 (1.7-2.4) mg/dl Total Bilirubin 1.1 H (0.2-1.0) mg/dl Direct Bilirubin 0.2 (0-0.2) mg/dl AST 27 (13-39) U/L ALT 16 (7-52) U/L Alkaline Phosphatase 101 (34-104) U/L Total Creatine Kinase (26-192) U/L Troponin I High Sens 15.5 H (0-14) pg/ml Total Protein 7.4 (6.0-8.3) gm/dl Albumin 4.7 (3.4-5.0) gm/dl Globulin 2.7 (2.5-4.0) gm/dl Albumin/Globulin Ratio 1.7 (0.9-2) Procalcitonin (0-0.5) ng/ml TSH 0.061 L (0.300-4.500) uIu/ml Free T4 1.74 H (0.61-1.60) ng/dl PTH Intact (12.0-88.0) pg/ml Urine Color Dark Yellow Urine Appearance Clear (Clear) Urine pH 5.5 (4.5-7.5) Ur Specific [place] 1.022 (1.000-1.030) Urine Protein 2+ H (Negative) Urine Glucose (UA) Negative (Negative) Urine Ketones Trace H (Negative) Urine Blood Trace H (Negative) Urine Nitrite Negative (Negative) Urine Bilirubin Negative (Negative) Urine Urobilinogen Negative (Negative) Ur Leukocyte Esterase 1+ H (Negative) Urine WBC (Auto) 6-10 H (0-5) /hpf Urine RBC (Auto) 0-2 (0-2) /hpf U Hyaline Cast (Auto) 3-5 H (0-2) /lpf U Epithel Cells (Auto) 0-2 (0-2) /hpf Urine Bacteria (Auto) None Seen (None Seen) Hyaline Casts Present A (None Presnt) /lpf Nasal Screen MRSA (PCR) (Negative) Stl C. cayetanensis PCR (NotDetected) Stool Rotavirus A PCR (NotDetected) Stl Adenov F 40/41 PCR (NotDetected) Stool Astrovirus (PCR) (NotDetected) Stool Campylobacter PCR (NotDetected) Stl C. diff Tox B Gene (Neg) Stool Cryptosporidium PCR (NotDetected) Stl E.coli Shiga Tox PCR (NotDetected) Stl Enterotoxigenic E PCR (NotDetected) Stool EPEC (PCR) (NotDetected) Stool EAEC (PCR) (NotDetected) Stl E. histolytica PCR (NotDetected) Stool Giardia Lamblia PCR (NotDetected) Stool Salmonella PCR (NotDetected) Stool Sapovirus (PCR) (NotDetected) Stl P. shigelloides PCR (NotDetected) Stl Shigella/EIEC PCR (NotDetected) St Y.enterocolitica PCR (NotDetected) Stool Vibrio (PCR) (NotDetected) Stl Vibrio cholerae PCR (NotDetected) Stl Norovirus GI/GII PCR (NotDetected) Blood Type Antibody Screen Diagnostic Findings EXAM: CT abd pelvis wo con CLINICAL HISTORY: abd pain TECHNIQUE: Contiguous axial images were obtained from the level of the diaphragm to the pubic symphysis without intravenous or oral contrast. Coronal and sagittal reconstructions were likewise performed and indicated to increase the sensitivity for detecting clinically relevant pathology. CT scan was performed according to ALARA (as low as reasonable achievable). COMPARISON: .. None FINDINGS: There is a large hiatal hernia, with herniation of stomach as well as transverse colon. This herniated transverse colon loop is dilated with air fluid levels. The proximal large bowel is grossly dilated with air fluid levels. Evaluation of the abdominal and pelvic visceral organs is limited without intravenous contrast. The unenhanced liver, spleen, pancreas, and adrenal glands are grossly unremarkable. The gallbladder is postop. The kidneys are normal in size and attenuation without obvious calcification. There is no hydronephrosis or perinephric stranding. The ureters are normal in caliber. Right renal cysts noted with right renal scarring Multiple right renal and solitary left renal calculi noted. No adenopathy or fluid collections are seen. The appendix is not visualized distinctly. The aorta shows atherocalcific changes The urinary bladder is normal in contour. Pelvic viscera are grossly unremarkable. No aggressive appearing osseous lesions are identified. Marked degenerative changes in spine with left hip implant Mild ascites. IMPRESSION: 1 Large hiatal hernia with herniation of stomach and transverse colon. 2 Features of intestinal obstruction with dilated large bowel with air fluid levels till the mid/distal transverse colon 3 Mild ascites 4 Multiple right renal and solitary left renal calculi noted. 5 Right kidney shows renal scarring with right renal cysts. I personally reviewed images and reviewed images with Dr. Boyle in Radiology.
[2024-11-04 10:43] LABS: Hematocrit (blood only) 40.8 % (37.0-47.0); Hemoglobin 13.3 g/dl (12.0-16.0)
--- NOTE | 2024-11-04 14:09 | Discharge Summary ---
Discharge Summary Date of Service November 04, 2024 Principal Dx & Hospital Course #1 = Principal Diagnosis (1) Large bowel obstruction: (2) Gastric outlet obstruction: (3) Diaphragmatic hernia: (4) Hypercalcemia: (5) Acute on chronic renal insufficiency: (6) Hypothyroid: With suppressed TSH Plan Patient is an 84-year-old female who presented to the emergency room with poor oral intake, diarrhea and vomiting. In the emergency room noted to have acute kidney injury and was hypercalcemic. She was referred for further evaluation. Patient was admitted to the hospital on a monitored unit. She was given IV fluid resuscitation for hypercalcemia. It was also noted that her TSH was suppressed and her Synthroid dosing was decreased. Stool cultures were ordered and a CT of the abdomen was ordered because of her diarrhea and abdominal pain. CT of the abdomen showed gastric and large bowel obstruction due to a diaphragmatic hernia with air-fluid levels. Stool BioFire was negative and stool for C. difficile was negative. Her calcium improved with hydration. Surgical consultation was obtained. Surgery evaluated the images and the patient and determined that patient may need surgical intervention which cannot be performed here. Transfer center was contacted to help coordinate a transfer to [facility]. Discussed the case with Dr. Agarwal. He was able to coordinate and excepting physician Dr. Salomon Hunter. Conversation with the patient explaining the benefits of getting a surgical opinion at [facility]. I did have a conversation with the patient's daughter while we are anticipating transfer to [facility]. Attempted to answer her questions about surgery to the best of my knowledge. Strongly recommended to her that she get the opinion of the specialized surgical team at [facility]. anticipate transfer to [facility] when bed and transportation arranged. Notes For Next Care Provider Medication Changes From Visit N.p.o. for now. Admission HPI Per Admitting Provider History obtained from patient, family, and records. Medical history significant for hypertension, hypothyroidism, CRI (baseline creatinine 1.3), chronic diarrhea, history of MRSA as per records Last confinement November 2023 for E. coli UTI. 1 week history of achy central abdominal pain with nausea vomiting episodes. Worsening diarrhea. No black/bloody stools. Denies headache, chest pain, SOB. Poor appetite at home. Denies dysuria symptoms. Antibiotic medication last month for UTI as per patient. NSS boluses, Calcitonin, IV ceftriaxone administered at the ER. Medical History as above Surgical History : Dental surgery, YASH, cholecystectomy Family History : Autism Personal/Social history : Non-smoker, no EtOH intake, homemaker in the younger years Admission Exam Per Admitting Provider See H&P Discharge Exam Constitutional: Alert, nontoxic HEENT: Mucous membranes moist. Lungs: Clear to auscultation, decreased, no wheezes rales or rhonchi CV: S1-S2, regular Abdomen: Soft, high-pitched bowel sounds, decreased, mild diffuse tenderness, no guarding or rigidity, no distention Extremities: No significant edema Neuro: No focal deficits Psych: Cooperative, normal mood Updated Medication List Medication Instructions Recorded Confirmed Type atenolol 25 mg tablet 12.5 mg PO DAILY 12/05/23 11/03/24 History levothyroxine 125 mcg tablet 125 mcg PO DAILY 12/05/23 11/03/24 History multivitamin (One Daily 1 tab PO DAILY 12/05/23 11/03/24 History Multivitamin tablet) risperidone 0.25 mg tablet 0.25 mg PO HS 12/05/23 11/03/24 History L.acidop,casei,lactis,rham-B.lact,cynthia 1 cap PO DAILY #10 caps 12/08/23 11/03/24 Rx 625 mg (10 billion cell) capsule (Advanced Probiotic) aspirin 325 mg tablet 325 mg PO DIRECTED PRN Pain 11/03/24 11/03/24 History levothyroxine 100 mcg tablet 100 mcg PO DAILYBB #30 tabs 11/04/24 Rx (Synthroid) Hospital Stay Data Consultations 11/03/24 22:49 ED Decision to Admit Stat 11/04/24 03:18 Consult General Surgery Routine Diagnostic Imagining Performed 11/03/24 23:57 CT Abd and Pelvis [CT abd pelvis wo con] Stat Reviewed imaging, laboratory and diagnostic studies. Pertinent findings as below. WBCs 12.4, improving from admission Hemoglobin 13.3 Platelets 307 INR 1.0 Sodium 141 Potassium 4.1 Chloride 109 Bicarb 23 BUN 34 Creatinine 1.49 improved from admission Glucose 166 Hemoglobin A1c 5.8% Lactate 1.8 Magnesium 1.8 LFTs within normal ranges Troponin 15.5-20 3.6-37.6. Believe this is indicative of demand ischemia and not acute coronary syndrome TSH is 0.061 Free T41.74 Intact PTH 10.9 Urinalysis unremarkable for infection Stool BioFire negative Stool negative for C. difficile CT of the abdomen pelvis showed large hiatal hernia with herniation of stomach and transverse colon into the chest cavity with features of intestinal obstruction with dilated large bowel and air-fluid levels Pending Results Patient Have Any Pending Studies at Discharge: Yes Discharge Instructions Given to Patient (Per Discharging Provider) Recommend you be transferred to [facility] in [place] to be evaluated by surgical specialty to evaluate your bowel obstruction Total Time Total Time Spent Total Time Spent (In Minutes): 65
[2024-11-04 15:27] VITALS: BP 121/66; PULSE 70; RESP 17; TEMP 97.9; O2SAT 93
[2024-11-04] MEDS ORDERED: risperiDONE 0.25 MG TAB PO SCH (21:00)
[2024-11-04] MEDS ORDERED: PANTOprazole 40 MG/10 ML SYR IV SCH (21:00)
--- NOTE | 2024-11-05 05:36 | Electrocardiogram Report ---
Test Reason : Blood Pressure : */* mmHG Vent. Rate : 77 BPM Atrial Rate : 77 BPM P-R Int : 158 ms QRS Dur : 72 ms QT Int : 372 ms P-R-T Axes : 69 84 89 degrees QTcB Int : 420 ms Sinus rhythm with occasional Premature ventricular complexes Low voltage QRS Borderline ECG When compared with ECG of 05-Dec-2023 20:32, Premature ventricular complexes are now Present Criteria for Septal infarct are no longer Present Confirmed by Alber Erwin ([id number]) on 11/05/2024 5:35:32 AM Referred By: REFERRED SELF Confirmed By: Alber Erwin
--- NOTE | 2024-11-05 09:08 | Coding Query ---
MALNUTRITION To promote full compliance with coding requirements relating to patient care, physician participation is requested in all cases of doctor of audiology uncertainty. Please assist us with the question(s) below: Please place an X within the parenthesis (x). If other, please document: "Malnutrition" is documented in this record on the Discharge Summary. If possible, please check the box that provides a more specific diagnosis: ( ) Mild malnutrition ( ) Moderate malnutrition ( ) Severe malnutrition ( ) Protein malnutrition (kwashiorkor) (x ) Severe protein calorie malnutrition ( ) Protein calorie malnutrition, unspecified ( ) Other (please specify): Was this diagnosis present on admission? Please place an X within the parenthesis (x). ( ) Present on admission ( ) Not present on admission ( ) Unable to be clinically determined Thank you Angle Avila [facility]ALEfraín
--- NOTE | 2024-11-05 10:07 | Coding Query ---
CODING QUERY To promote full compliance with coding requirements relating to patient care, provider participation is requested in all cases of belt puncher uncertainty. Please assist us with the question(s) below: Coding Question(s): There is documentation of large bowel obstruction and documentation of diaphragmatic hernia with documentation of, "CT of the abdomen showed gastric and large bowel obstruction due to a diaphragmatic hernia with air-fluid levels". We cannot code from imaging findings, and only from physician documentation in the record of diagnosis, so your help is needed in order to determine the relationship, if any between the diaphragmatic hernia and the large bowel obstruction. Please specify below, in your clinical opinion: ( x ) Large Bowel Obstruction is due to diaphragmatic hernia ( ) No relation between bowel obstruction and hernia ( ) Other: Please Specify Physician's Response(s): Thank you Angle Avila Principal Diagnosis: "that condition established after study, to be chiefly responsible for occasioning the admission of the patient to the hospital for care." Co-Existing Principal Diagnosis: "when two or more diagnoses equally meet the criteria for principal diagnosis as determined by the circumstances of admission, diagnostic work up, and/or therapy provided, and the Alphabetic Index, Tabular List, or another coding guideline does not provide sequencing direction, any one of the diagnoses may be sequenced first." "When the physician has documented what appears to be a current diagnosis in the body of the record, but has not included the diagnosis in the final diagnostic statement, the physician should be asked whether the diagnosis should be added." ([facility] 2 QTR90. p3-4) JOANNA
== END 2024-11-04 16:49 | disposition short-term general hospital (02) | DRG 391 ==
LOC: ED 19:33 → 2W 23:09